=== PATIENT | female | born 1950 | race Caucasian/White ===

== ENCOUNTER 2016-12-23 16:35 | Inpatient (IN) | payer MEDICARE, OTHER ==
[~2016-12-23 16:35] MED LIST: MIDAZOLAM 2 MG/2 ML VIAL IV ONE
[2016-12-23 16:54] LABS: Basophils # (A) 0.1 k/uL (0-0.2); Basophils % (A) 1 %; CH 27.2; Eosinophils # (A) 0.2 k/uL (0-0.7); Eosinophils % (A) 2 %; HCT 40.8 % (34.0-46.0); HDW 2.74; HGB 13.9 gm/dL (11.4-16.0); Luc # (Auto) 0.14; Luc % (Auto) 2; Lymphocytes # (A) 1.7 k/uL (1.0-4.8); Lymphocytes % (A) 19 %; MCH 27.4 pg (25.0-35.0); MCHC 34.1 g/dL (31.0-37.0); MCV 80.5 fL (80.0-100.0); Mean Platelet Volume 7.2; Monocytes # (A) 0.4 k/uL (0-1.0); Monocytes % (A) 5 %; Neutrophils # (A) 6.5 k/uL (1.3-7.7); Neutrophils % (A) 73 %; RBC 5.07 m/uL (3.80-5.40); RDW 13.5 % (11.5-15.5); WBC 8.9 k/uL (3.8-10.6); WBC (Perox) 8.44
[2016-12-23 16:54] LABS: Glucose,Whole Blood 131 mg/dL (75-99)
--- NOTE | 2016-12-23 16:57 | XR ---
EXAMINATION TYPE: XR chest 1V portable DATE OF EXAM: 12/23/2016 Comparison: None Clinical History: 66-year-old female with PAIN Findings: The cardiomediastinal silhouette, aorta, and pulmonary vasculature are within normal limits. Some [place] atelectasis in the lower lungs. Otherwise, lungs and pleural spaces are clear. Impression: No acute cardiopulmonary process.
[2016-12-23 17:02] LABS: ALT 50 U/L (9-52); AST 102 U/L (14-36); Alkaline Phosphatase 81 U/L (38-126); Anion Gap 14 mmol/L; Blood Urea Nitrogen 24 mg/dL (7-17); Carbon Dioxide 19 mmol/L (22-30); Chloride 111 mmol/L (98-107); Glucose 136 mg/dL (74-99); Non-African American GFR(MDRD) >60 (>60 ml/min/1.73 sqM); Sodium 144 mmol/L (137-145); Total Bilirubin 0.5 mg/dL (0.2-1.3); Total Protein 7.2 g/dL (6.3-8.2)
[2016-12-23 17:03] LABS: Partial Thromboplastin Time 23.2 sec (22.0-30.0); Prothrombin Time 9.8 sec (9.0-12.0)
[2016-12-23] MEDS ORDERED: HEPARIN SODIUM,PORCINE 5,000 UNIT/ML 1 ML VIAL IV STA (17:03)
[2016-12-23] MEDS ORDERED: LIDOCAINE 2% INJ 20 MG/ML (20 ML MDV) ONE (17:08)
[2016-12-23] MEDS ORDERED: diphenhydrAMINE 50 MG/ML 1 ML VIAL ONE (17:10)
[2016-12-23] MEDS ORDERED: MIDAZOLAM 2 MG/2 ML VIAL ONE (17:10)
[2016-12-23] MEDS ORDERED: diphenhydrAMINE 50 MG/ML 1 ML VIAL IVP ONE (17:19)
[2016-12-23] MEDS ORDERED: SODIUM CHLORIDE 0.9% 500 ML IV ONE (17:19)
[2016-12-23] MEDS ORDERED: BIVALIRUDIN BOLUS 250 MG/50 ML IV ONE (17:23)
[2016-12-23] MEDS ORDERED: SODIUM CHLORIDE 0.9% 1,000 ML IV ONE (17:24)
[2016-12-23] MEDS ORDERED: BIVALIRUDIN 250 MG in SODIUM CHLORIDE 0.9% 50 ML IV ONE (17:25)
[2016-12-23 17:26] LABS: Creatine Kinase MB 78.6 ng/mL (0.0-2.4); Troponin I 6.47 ng/mL (0.000-0.034)
--- NOTE | 2016-12-23 17:37 | ED ---
General Adult HPI - General Chief complaint: Syncope Stated complaint: Unresponsive Time Seen by Provider: 12/23/16 16:47 Source: patient, EMS, RN notes reviewed Mode of arrival: EMS Limitations: no limitations - History of Present Illness Initial comments: 66-year-old female presents by EMS after collapsing being found unresponsive. Patient has past medical history of hypertension, hypothyroidism, and osteoarthritis. She has no known cardiac history. Upon arrival patient complains of some lightheadedness mild nausea. She denies chest pain denies abdominal pain. Patient states she was feeling under the weather yesterday, but again denied any chest pain denied shortness of breath. States she had some nausea and lightheadedness. "EMS patient was initially hypotensive and bradycardic. She had approximately downtime of 10 minutes. Patient is alert and oriented the time of arrival and able to give a complete history. Patient does not have diabetes, she denies tobacco. - Related Data Home Medications Medication Instructions Recorded Confirmed Bisoprol/Hydrochlorothiazide [Ziac 1 each PO DAILY 12/23/16 12/23/16 2.5-6.25 MG] Cholecalciferol (Vitamin D3) 2,000 unit PO DAILY 12/23/16 12/23/16 [Vitamin D3] Levothyroxine Sodium [Synthroid] 25 mcg PO DAILY 12/23/16 12/23/16 Loratadine 10 mg PO DAILY 12/23/16 12/23/16 Melatonin 10 mg PO DAILY 12/23/16 12/23/16 Simvastatin [Zocor] 20 mg PO HS 12/23/16 12/23/16 hydrOXYzine PAMOATE [Vistaril] 25 mg PO 12/23/16 12/23/16 Allergies Allergy/AdvReac Type Severity Reaction Status Date / Time clindamycin [From Cleocin] Allergy Unknown Verified 12/23/16 16:55 erythromycin base Allergy Unknown Verified 12/23/16 16:55 Penicillins Allergy Unknown Verified 12/23/16 16:55 Review of Systems ROS Statement: Those systems with pertinent positive or pertinent negative responses have been documented in the HPI. ROS Other: All systems not noted in ROS Statement are negative. Cardiovascular: Denies: chest pain, palpitations Endocrine: Reports: fatigue Gastrointestinal: Reports: nausea. Denies: vomiting Past Medical History Past Medical History: Hypertension, Thyroid Disorder History of Any Multi-Drug Resistant Organisms: None Reported Past Surgical History: Unable to Obtain Past Psychological History: No Psychological Hx Reported Smoking Status: Unknown if ever smoked Past Alcohol Use History: None Reported Past Drug Use History: None Reported General Exam Limitations: no limitations General appearance: alert, in distress Head exam: Present: atraumatic, normocephalic Eye exam: Present: normal appearance, PERRL ENT exam: Present: normal exam, mucous membranes dry Neck exam: Present: normal inspection Respiratory exam: Present: normal lung sounds bilaterally. Absent: respiratory distress, wheezes Cardiovascular Exam: Present: regular rate, normal rhythm GI/Abdominal exam: Present: soft. Absent: distended, tenderness Extremities exam: Present: normal capillary refill, other (Bilateral femoral pulses present) Neurological exam: Present: alert, oriented X3. Absent: motor sensory deficit Psychiatric exam: Present: normal affect, normal mood Skin exam: Present: diaphoretic, pallor Course Vital Signs 12/23/16 12/23/16 16:35 16:50 Temperature 97.4 F L Pulse Rate 82 84 Respiratory 18 18 Rate Blood Pressure 130/64 106/53 O2 Sat by Pulse 99 99 Oximetry EKG Findings - EKG Comments: EKG Findings:: Prehospital EKG shows ST segment elevation in leads 2,[address] segment depression in V1 and V2 V3 and V4 this is consistent with inferior STEMI. EKG obtained upon arrival: Again redemonstration of ST segment elevation in leads 2, 3, and aVF as well as reciprocal change in V1, V2, V3, V4 and V5. Inferior STEMI Medical Decision Making - Medical Decision Making 66-year-old female with syncopal episode, hypotension bradycardia and EKG evidence of acute inferior STEMI. 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 Case is discussed with cardiology she is given aspirin by EMS prior to arrival, heparin bolus is given in the emergency department. 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 Chest x-ray as well as laboratory studies are pending. Diagnosis: Inferior STEMI - Lab Data Result diagrams: 12/23/16 16:44 12/23/16 16:44 Lab Results 12/23/16 12/23/16 12/23/16 Range/Units 16:44 16:44 16:44 WBC 8.9 (3.8-10.6) k/uL RBC 5.07 (3.80-5.40) m/uL Hgb 13.9 (11.4-16.0) gm/dL Hct 40.8 (34.0-46.0) % MCV 80.5 (80.0-100.0) fL MCH 27.4 (25.0-35.0) pg MCHC 34.1 (31.0-37.0) g/dL RDW 13.5 (11.5-15.5) % Plt Count 251 (150-450) k/uL Neutrophils % 73 % Lymphocytes % 19 % Monocytes % 5 % Eosinophils % 2 % Basophils % 1 % Neutrophils # 6.5 (1.3-7.7) k/uL Lymphocytes # 1.7 (1.0-4.8) k/uL Monocytes # 0.4 (0-1.0) k/uL Eosinophils # 0.2 (0-0.7) k/uL Basophils # 0.1 (0-0.2) k/uL PT (9.0-12.0) sec INR (<1.1) APTT (22.0-30.0) sec Sodium 144 (137-145) mmol/L Potassium 4.0 (3.5-5.1) mmol/L Chloride 111 H (98-107) mmol/L Carbon Dioxide 19 L (22-30) mmol/L Anion Gap 14 mmol/L BUN 24 H (7-17) mg/dL Creatinine 0.85 (0.52-1.04) mg/dL Est GFR (MDRD) Af Amer >60 (>60 ml/min/1.73 sqM) Est GFR (MDRD) Non-Af >60 (>60 ml/min/1.73 sqM) Glucose 136 H (74-99) mg/dL POC Glucose (mg/dL) (75-99) mg/dL POC Glu Efficiency Miner Blasting ID Calcium 11.0 H (8.4-10.2) mg/dL Total Bilirubin 0.5 (0.2-1.3) mg/dL AST 102 H (14-36) U/L ALT 50 (9-52) U/L Alkaline Phosphatase 81 (38-126) U/L Total Creatine Kinase 823 H (30-135) U/L Total Protein 7.2 (6.3-8.2) g/dL Albumin 4.1 (3.5-5.0) g/dL 07/11/17 07/11/17 Range/Units 16:44 16:52 WBC (3.8-10.6) k/uL RBC (3.80-5.40) m/uL Hgb (11.4-16.0) gm/dL Hct (34.0-46.0) % MCV (80.0-100.0) fL MCH (25.0-35.0) pg MCHC (31.0-37.0) g/dL RDW (11.5-15.5) % Plt Count (150-450) k/uL Neutrophils % % Lymphocytes % % Monocytes % % Eosinophils % % Basophils % % Neutrophils # (1.3-7.7) k/uL Lymphocytes # (1.0-4.8) k/uL Monocytes # (0-1.0) k/uL Eosinophils # (0-0.7) k/uL Basophils # (0-0.2) k/uL PT 9.8 (9.0-12.0) sec INR 1.0 (<1.1) APTT 23.2 (22.0-30.0) sec Sodium (137-145) mmol/L Potassium (3.5-5.1) mmol/L Chloride (98-107) mmol/L Carbon Dioxide (22-30) mmol/L Anion Gap mmol/L BUN (7-17) mg/dL Creatinine (0.52-1.04) mg/dL Est GFR (MDRD) Af Amer (>60 ml/min/1.73 sqM) Est GFR (MDRD) Non-Af (>60 ml/min/1.73 sqM) Glucose (74-99) mg/dL POC Glucose (mg/dL) 131 H (75-99) mg/dL POC Glu Efficiency Miner Blasting ID Charisse Briggs Calcium (8.4-10.2) mg/dL Total Bilirubin (0.2-1.3) mg/dL AST (14-36) U/L ALT (9-52) U/L Alkaline Phosphatase (38-126) U/L Total Creatine Kinase (30-135) U/L Total Protein (6.3-8.2) g/dL Albumin (3.5-5.0) g/dL Disposition Clinical Impression: STEMI (ST elevation myocardial infarction) Disposition: ADMITTED IP TO THIS [facility] Decision to Admit Reason: Admit from EC Decision Date: 12/23/16 Decision Time: 16:38
[2016-12-23] MEDS ORDERED: NITROGLYCERIN 1000MCG/10ML SYRINGE INTRACORON ONE (18:05)
[2016-12-23] MEDS ORDERED: FUROSEMIDE 10 MG/ML 4 ML VIAL ONE (18:19)
[2016-12-23] MEDS ORDERED: FUROSEMIDE 10 MG/ML 4 ML VIAL IV ONE (18:22)
[2016-12-23] MEDS ORDERED: CLOPIDOGREL 75 MG TAB ONE (18:24)
[2016-12-23] MEDS ORDERED: CLOPIDOGREL 75 MG TAB PO ONE (18:26)
[2016-12-23] MEDS ORDERED: NITROGLYCERIN SL TABS 0.4 MG TAB SUBLINGUAL PRN (18:27)
[2016-12-23] MEDS ORDERED: RX INFO: IV CONTRAST WAS GIVEN 1 EACH MISC MISCELLANE PRN (18:27)
[2016-12-23] MEDS ORDERED: MAG HYDROX/AL HYDROX/SIMETH 30 ML CUP PO PRN (18:27)
[2016-12-23] MEDS ORDERED: ATROPINE SULFATE 0.1 MG/ML 10ML SYRINGE IV PRN (18:27)
[2016-12-23] MEDS ORDERED: IOHEXOL 350 MG/ML 125ML BOTTLE INJ ONE (18:32)
[2016-12-23 19:03] LABS: Glucose,Whole Blood 96 mg/dL (75-99)
[2016-12-23] MEDS: SODIUM CHLORIDE 0.9% 1,000 ML IV SCH (20:59)
[2016-12-23] MEDS: METOPROLOL TARTRATE 12.5 MG TAB PO SCH ×2 (20:59→22:44)
[2016-12-23] MEDS: ATORVASTATIN 80 MG TAB PO SCH (20:59)
[2016-12-23] MEDS: ZOLPIDEM 5 MG TAB PO PRN (23:17)
[2016-12-24 04:32] LABS: Basophils % (A) 0 %; CH 27.3; CHCM 33.4; Eosinophils # (A) 0.1 k/uL (0-0.7); Eosinophils % (A) 1 %; HDW 2.61; Luc # (Auto) 0.11; Luc % (Auto) 1; Lymphocytes # (A) 1.1 k/uL (1.0-4.8); Lymphocytes % (A) 14 %; MCH 28.1 pg (25.0-35.0); MCHC 34.2 g/dL (31.0-37.0); MCV 82.1 fL (80.0-100.0); Mean Platelet Volume 7.5; Monocytes # (A) 0.5 k/uL (0-1.0); Monocytes % (A) 6 %; Neutrophils # (A) 6.1 k/uL (1.3-7.7); Neutrophils % (A) 77 %; RBC 4.63 m/uL (3.80-5.40); RDW 13.5 % (11.5-15.5); WBC 7.9 k/uL (3.8-10.6); WBC (Perox) 7.89
[2016-12-24 04:53] LABS: Anion Gap 11 mmol/L; Blood Urea Nitrogen 24 mg/dL (7-17); Calcium 10.4 mg/dL (8.4-10.2); Carbon Dioxide 22 mmol/L (22-30); Chloride 109 mmol/L (98-107); Glucose 104 mg/dL (74-99); Magnesium 1.9 mg/dL (1.6-2.3); Non-African American GFR(MDRD) >60 (>60 ml/min/1.73 sqM); Phosphorous 3.7 mg/dL (2.5-4.5); Potassium 3.9 mmol/L (3.5-5.1); Sodium 142 mmol/L (137-145)
[2016-12-24] MEDS ORDERED: Potassium Replacement Protocol 1 EACH MISC MISCELLANE PRN (04:57)
[2016-12-24] MEDS ORDERED: Magnesium Replacement Protocol 1 EACH MISC MISCELLANE PRN (04:57)
[2016-12-24] MEDS: MAGNESIUM SULFATE-D5W PMX 1 GM in DEXTROSE/WATER 1 100ML.BAG IVPB SCH ×2 (06:01→08:10)
[2016-12-24] MEDS: LEVOTHYROXINE 25 MCG TAB PO SCH (06:01)
[2016-12-24] MEDS ORDERED: POTASSIUM CHLORIDE ER 20 MEQ TAB.ER PO SCH (06:30)
[2016-12-24] MEDS: CHOLECALCIFEROL 1,000 UNIT TAB PO SCH (08:11)
[2016-12-24] MEDS: METOPROLOL TARTRATE 12.5 MG TAB PO SCH ×2 (08:12→21:00)
[2016-12-24] MEDS: LISINOPRIL 5 MG TAB PO SCH (08:12)
[2016-12-24] MEDS: ASPIRIN 81 MG CHEW PO SCH (08:12)
--- NOTE | 2016-12-24 10:29 | ECHOF ---
Referral Reason:Acute posterior OH status post PCI of circumflex MEASUREMENTS -------- HEIGHT: 162.6 cm WEIGHT: 86.2 kg BP: 80/49 RVIDd: 2.3 cm (< 3.3) IVSd: 1.2 cm (0.6 - 1.1) LVIDd: 3.8 cm (3.9 - 5.3) LVPWd: 1.1 cm (0.6 - 1.1) IVSs: 1.5 cm LVIDs: 2.5 cm LVPWs: 1.5 cm LA Diam: 3.3 cm (2.7 - 3.8) LAESV Index (A-L): 18.10 ml/m Ao Diam: 3.2 cm (2.0 - 3.7) AV Cusp: 1.6 cm (1.5 - 2.6) MV EXCURSION: 16.638 mm (> 18.000) MV EF SLOPE: 136 mm/s (70 - 150) EPSS: 0.3 cm MV E Bib: 0.93 m/s MV DecT: 171 ms MV A Bib: 0.73 m/s MV E/A Ratio: 1.27 RAP: 5.00 mmHg RVSP: 27.49 mmHg FINDINGS -------- Sinus rhythm. This was a technically adequate study. The left ventricular size is normal. There is borderline concentric left ventricular hypertrophy. Overall left ventricular systolic function is mildly impaired with, an EF between 45 - 50 %. Basal posterior LV wall motion is hypokinetic. Basal inferior LV wall motion is hypokinetic. Mid lateral LV wall motion is hypokinetic. Mid posterior LV wall motion is hypokinetic. The right ventricle is normal in size and function. Normal LA size by volume 22+/-6 ml/m2. The right atrium is normal in size. There is mild aortic valve sclerosis. Mild mitral annular calcification present. [id number] mitral regurgitation is present. Mild tricuspid regurgitation present. Right ventricular systolic pressure is normal at < 35 mmHg. The pulmonic valve was not well visualized. There is no pulmonic regurgitation present. The aortic root size is normal. Normal inferior vena cava with normal inspiratory collapse consistent with estimated right atrial pressure of 5 mmHg. There is no pericardial effusion. CONCLUSIONS -------- 1. Sinus rhythm. 2. There is mild aortic valve sclerosis. 3. Mild mitral annular calcification present. 4. [id number] mitral regurgitation is present. 5. Mild tricuspid regurgitation present. 6. Right ventricular systolic pressure is normal at < 35 mmHg. 7. The pulmonic valve was not well visualized. 8. There is no pulmonic regurgitation present. 9. The aortic root size is normal. 10. Normal inferior vena cava with normal inspiratory collapse consistent with estimated right atrial pressure of 5 mmHg. 11. There is no pericardial effusion. 12. This was a technically adequate study. 13. There is borderline concentric left ventricular hypertrophy. 14. Overall left ventricular systolic function is mildly impaired with, an EF between 45 - 50 %. 15. Basal posterior LV wall motion is hypokinetic. 16. Basal inferior LV wall motion is hypokinetic. 17. Mid lateral LV wall motion is hypokinetic. 18. Mid posterior LV wall motion is hypokinetic. 19. Normal LA size by volume 22+/-6 ml/m2. SILK SCREEN FRAME ASSEMBLER: Shama Boudreaux RDCS
[2016-12-24] MEDS ORDERED: SODIUM CHLORIDE 0.9% 200 ML IV ONE (11:15)
[2016-12-24] MEDS: CLOPIDOGREL 75 MG TAB PO SCH (11:23)
[2016-12-24] MEDS: SODIUM CHLORIDE 0.9% 1,000 ML IV SCH ×2 (11:25→21:00)
--- NOTE | 2016-12-24 11:56 | CONS ---
DATE OF SERVICE: 12/23/2016 Mrs. Ragini Brito is a 66-year-old lady with history of hypertension who sees Dr. Otf Edwards in the outpatient setting. She quit smoking about 5 years ago. She has a strong family history of premature CAD and her cholesterol status is unknown. She was at work. She went to take the trash out at work and the next thing she remembers is she passed out. Her boss found her, called EMS, she was brought in. She had inferior ST elevation and more prominent with precordial ST depression. Clinical pictures suggested that syncope with acute MO and inferior posterior elevation MO. She was seen by me in the [facility]. She had achy discomfort in the upper back and shoulders, but she was hemodynamically stable. She denied any nausea or vomiting sensation. She has no diaphoresis. Her syncope was her major presenting features along with the achy discomfort in the upper back and chest that started almost at 8:00 a.m. this morning on and off. I took her to the [facility] promptly performed coronary angiography and intervention of a totally occluded circumflex. PAST MEDICAL HISTORY: 1. Hypertension. 2. Hypothyroidism on replacement therapy. 3. No evidence of prior MO or PCI. CORONARY RISK FACTORS: The patient has a strong family history of premature CAD , she quit smoking 5 years ago, has hypertension, hyperlipidemia. Medications at home include Vistaril, bisoprolol hydrochlorothiazide combination that is Ziac 2.5/6.25, Synthroid 25 mcg daily, simvastatin 20 mg daily. ALLERGIES: She was allergic to CLINDAMYCIN, ERYTHROMYCIN, AND PENICILLIN. On examination, blood pressure 110/70, pulse rate 78 per minute. HEENT unremarkable. Fundus was not examined by me. Neck is supple. No JVD. I do not hear a carotid bruit. There is no thyromegaly. Heart exam reveals an S1, S2 heard normally without rub, murmur or gallop. Lungs are clear. Abdomen is soft, nontender. Lower extremities reveal diminished but palpable pulses. No edema. Central nervous system was normal. EKG revealed a very inferior ST elevation. Sinus mechanism with precordial ST depression of acute inferior posterior ST elevation MO. IMPRESSION: 1. Acute inferior posterior elevation myocardial infarction. 2. Hypertensin. 3. Hypothyroidism. 4. Hypercholesterolemia. RECOMMENDATIONS: I recommend a prompt cardiac catheterization and intervention and proceeded to perform this expeditiously. risks, benefits, options and rationale were explained to the patient. MTDD
--- NOTE | 2016-12-24 14:37 | P.HPIM ---
History of Present Illness H&P Date: 12/23/16 Chief Complaint: STEMI, post PCI and stent placement, hypertension, hyperlipidemia 66-year-old mildly overweight female one of Dr. Edwards's patient with past medical history of hypertension hyperlipidemia who works for [employer] who apparently was at work on Thursday afternoon she was not feeling well she felt more heat sickness and achiness all over her body had an excessive sweating and she passout in the office by herself was down for a few minutes when Mr. Wolf found her on the mosaic floor layer up calling 911 and brought to the emergency department at [facility]. Her EKG showed significant finding of ST elevation myocardial infarction CK with troponin was elevated patient ended up going to the clinical laboratory technician with Dr. Heard and had an angiogram revealed multiple coronary artery stenosis including the circumflex the OM and RCA. Patient ended up having to angioplasty of the circumflex and OM she still have a blockage in the RCA need to be fixed before she the hospital. Patient ended up being transferred to the intensive care unit after her angioplasty and more stable at this point. Her echocardiogram showed slight decrease in ejection fraction initially looks like mild injury or wall area. Asking the patient about her symptoms apparently has not been feeling well since Thursday has been having achiness and discomfort with heat symptom palpitation and nausea feeling since Thursday morning but she kept working all day according to her Been able to climb the steps and walk and flat area with no exertional chest pain or symptom of the time. Her major symptoms started on Thursday early in the morning when she woke up at 4:00 after midnight not feeling well and still insists to go to work had a crazy the at work Been more physically active and doing things all day till this event taking place in the afternoon on Thursday. Review of Systems Constitutional: Reports anorexia, Reports chronic headaches, Reports chronic pain, Reports fatigue, Reports lethargy, Reports weakness, Reports weight gain, Denies as per HPI, Denies chills, Denies daytime sleepiness, Denies fever, Denies malaise, Denies night sweats, Denies poor appetite, Denies sweats, Denies weight loss Eyes: bilateral as per HPI Ears: bilateral: decreased hearing Ears, nose, mouth and throat: Reports nasal discharge, Reports sinus pain, Reports sinus pressure, Denies as per HPI, Denies ant. neck pain, Denies bleeding gums, Denies dental pain, Denies dysphagia, Denies epistaxis, Denies headache, Denies hoarseness, Denies mouth pain, Denies nasal congestion, Denies neck fullness/pressure, Denies neck lump, Denies nose pain, Denies odynophagia, Denies post-nasal drip, Denies swelling in mouth, Denies swelling in throat, Denies sore throat, Denies vertigo, Denies voice changes Cardiovascular: Reports chest pain, Reports decreased exercise tolerance, Reports dyspnea on exertion, Reports edema, Reports high blood pressure, Reports irregular heart beat, Reports leg edema, Reports lightheadedness, Reports palpitations, Reports paroxysmal nocturnal dyspnea, Reports rapid heart beat, Reports syncope, Denies as per HPI, Denies claudication, Denies orthopnea , Denies phlebitis, Denies shortness of breath Respiratory: Reports congestion, Reports dyspnea, Reports pain, Reports respiratory infections, Denies as per HPI, Denies cough, Denies cough with sputum, Denies excessive sputum, Denies hemoptysis, Denies home oxygen, Denies pain on inspiration, Denies pleurisy, Denies sleep apnea, Denies snoring, Denies wheezing Gastrointestinal: Reports abdominal pain, Reports bloating, Reports dyspepsia, Reports indigestion, Reports nausea, Denies as per HPI, Denies belching, Denies BRBPR, Denies change in bowel habits, Denies coffee ground emesis, Denies constipation, Denies diarrhea, Denies early satiety, Denies excessive gas, Denies heartburn, Denies hematemesis, Denies hematochezia, Denies jaundice, Denies lactose intolerance, Denies loss of appetite, Denies melena, Denies vomiting Genitourinary: Reports urgency, Reports urinary frequency, Denies as per HPI, Denies abnormal vaginal bleeding, Denies decreased libido, Denies difficulty conceiving, Denies difficulty voiding, Denies dysmenorrhea, Denies dyspareunia, Denies dysuria, Denies flank pain, Denies genital sores, Denies hematuria, Denies hot flashes, Denies incomplete emptying, Denies kidney stones, Denies menorrhagia, Denies mixed incontinence, Denies nocturia, Denies pelvic pain, Denies post void dribbling, Denies , Denies prolapse symptoms, Denies stress incontinence, Denies urge incontinence, Denies vaginal discharge, Denies vaginal dryness, Denies vaginal itching, Denies vaginal odor Musculoskeletal: Reports loss of height, Reports low back pain, Reports neck pain, Reports neck stiffness, Denies as per HPI, Denies arm numbness/tingling, Denies atrophy, Denies fractures, Denies frequent falls, Denies gait dysfunction , Denies hot joints, Denies leg numbness/tingling, Denies limitation of motion, Denies morning stiffness, Denies muscle cramps, Denies muscle weakness, Denies myalgias, Denies prior amputations, Denies redness of joints, Denies shooting arm pain, Denies shooting leg pain Integumentary: Reports pruritus, Reports rash, Denies as per HPI, Denies acne, Denies boils, Denies brittle nails, Denies change in hair/nails, Denies color changes, Denies darkening of skin, Denies depigmentation, Denies dryness, Denies foot/leg ulcers, Denies growths, Denies hirsutism, Denies lesions, Denies onychomycosis, Denies sores, Denies striae, Denies unusual bruising, Denies wounds Neurological: Reports ataxia, Reports change in mentation, Reports migraines, Reports tingling, Reports tremors, Denies as per HPI, Denies aphasia, Denies balance difficulties, Denies burning pain, Denies change in smell/taste, Denies change in speech, Denies confusion, Denies convulsions, Denies double vision, Denies gait dysfunction, Denies head injury, Denies headaches, Denies hearing difficulties, Denies lack of coordination, Denies loss of vision, Denies memory loss, Denies motor disturbance, Denies numbness, Denies paralysis, Denies paresthesias, Denies seizures, Denies sensory deficit, Denies spasticity, Denies syncope, Denies tic, Denies transient paralysis, Denies vertigo, Denies weakness, Denies visual changes Psychiatric: Reports anxiety, Reports confusion, Reports sadness/tearfulness, Reports sleep disturbances, Denies as per HPI, Denies anhedonia, Denies anxiety attacks, Denies change in appetite, Denies change in libido, Denies change in sleep habits, Denies depression, Denies difficulty concentrating, Denies disorientation, Denies hallucinations, Denies hopelessness, Denies hypersomnia, Denies insomnia, Denies irritability, Denies memory loss, Denies mood swings, Denies paranoia, Denies suicidal ideation Endocrine: Reports cold intolerance, Reports excessive sweating, Reports flushing, Reports heat intolerance, Reports polydipsia, Reports polyuria, Denies as per HPI, Denies deepening of the voice, Denies excessive thirst, Denies fatigue, Denies high blood sugars, Denies increase in ring/shoe/hat size , Denies low blood sugars, Denies nocturia, Denies palpitations, Denies polyphagia, Denies proptosis, Denies recent glucocorticoid use, Denies thyroid mass, Denies weight change Hematologic/Lymphatic: Denies as per HPI, Denies easy bleeding, Denies easy bruising, Denies lymphadenopathy, Denies lymphedema, Denies thrombophilia Allergic/Immunologic: Denies as per HPI, Denies allergic rhinitis, Denies anaphylaxis, Denies angioedema, Denies gluten intolerance, Denies persistent infections, Denies seasonal allergies, Denies urticaria, Denies wheezing Past Medical History Past Medical History: Hyperlipidemia, Hypertension, Thyroid Disorder History of Any Multi-Drug Resistant Organisms: None Reported Past Surgical History: Appendectomy, Bladder Surgery, Heart Catheterization With Stent, Hysterectomy, Tonsillectomy Additional Past Surgical History / Comment(s): parathyroid sx '14, heart cath with stent 12/23/2016, bladder suspesion, colonoscopy with polyp removal Past Anesthesia/Blood Transfusion Reactions: Postoperative Nausea & Vomiting ( PONV) Date of Last Stent Placement:: 12/23/2016 Past Psychological History: No Psychological Hx Reported Smoking Status: Former smoker Past Alcohol Use History: Rare Past Drug Use History: None Reported - Past Family History Father Family Medical History: Diabetes Mellitus, Hypertension, Myocardial Infarction ( HI) Additional Family Medical History / Comment(s): TB, type 1 brittle DM, HEart dz , triple bypass Mother Family Medical History: Dementia, Hyperlipidemia, Hypertension Additional Family Medical History / Comment(s): B knee replacment, tonsilectomy Medications and Allergies Home Medications Medication Instructions Recorded Confirmed Type Bisoprol/Hydrochlorothiazide [Ziac 1 tab PO DAILY 12/23/16 12/23/16 History 2.5-6.25 MG] Cholecalciferol (Vitamin D3) 2,000 unit PO DAILY 12/23/16 12/23/16 History [Vitamin D3] Ibuprofen [Motrin] 200 mg PO DAILY PRN 12/23/16 12/23/16 History Levothyroxine Sodium [Synthroid] 25 mcg PO DAILY 12/23/16 12/23/16 History Loratadine 10 mg PO DAILY 12/23/16 12/23/16 History Melatonin 10 mg PO HS 12/23/16 12/23/16 History Multivitamins, Thera [Multivitamin 1 tab PO DAILY 12/23/16 12/23/16 History (formulary)] Simvastatin [Zocor] 20 mg PO HS 12/23/16 12/23/16 History hydrOXYzine PAMOATE [Vistaril] 25 mg PO HS 12/23/16 12/23/16 History Allergies Allergy/AdvReac Type Severity Reaction Status Date / Time clindamycin [From Cleocin] Allergy Unknown Verified 12/23/16 19:40 erythromycin base Allergy Unknown Verified 12/23/16 19:40 Penicillins Allergy Unknown Verified 12/23/16 19:40 Physical Exam Vitals: Vital Signs Temp Pulse Resp BP Pulse Ox 12/24/16 11:00 69 14 96/64 100 12/24/16 10:00 74 17 90/59 98 12/24/16 09:00 71 24 93/44 100 12/24/16 08:00 98 F 70 15 89/64 96 12/24/16 07:00 72 16 91/46 12/24/16 06:00 62 17 83/53 98 12/24/16 05:30 71 16 97/57 95 12/24/16 05:00 64 11 L 85/55 98 12/24/16 04:00 98.2 F 71 14 87/58 97 12/24/16 03:30 71 14 12/24/16 03:00 72 9 L 96/50 98 12/24/16 02:30 72 15 96/58 95 12/24/16 02:00 78 16 91/59 98 12/24/16 01:30 68 16 96/57 12/24/16 01:00 70 25 H 84/55 98 12/24/16 00:30 71 16 97/54 12/24/16 00:00 69 17 96/62 98 12/23/16 23:00 68 9 L 92/50 98 12/23/16 22:30 74 13 98/60 12/23/16 22:00 72 11 L 114/60 97 12/23/16 21:00 79 13 107/66 98 12/23/16 20:30 77 11 L 116/74 98 12/23/16 20:00 97.7 F 86 10 L 97/70 100 12/23/16 19:45 74 9 L 104/57 12/23/16 19:30 76 48 H 111/78 12/23/16 19:15 86 12 98/65 12/23/16 19:00 26 H 12/23/16 16:50 84 18 106/53 99 12/23/16 16:35 97.4 F L 82 18 130/64 99 Intake and Output 12/23/16 12/24/16 12/24/16 22:59 06:59 14:59 Intake Total 767 775 250 Output Total 450 900 Balance 317 -125 250 Intake: IV 717 700 250 Magnesium Sulfate-D5w Pmx 100 100 1 gm In Dextrose/Water 1 100ml.bag @ 100 mls/hr IVPB Q1H KRISTINA Rx#: [id number] Sodium Chloride 0.9% 1, 225 600 150 000 ml @ 75 mls/hr IV . [id number] KRISTINA Rx#:[id number] Oral 50 75 Output: Urine 450 900 Other: Voiding Method Toilet # Voids 1 1 1 Weight 86.183 kg 87.8 kg - Constitutional General appearance: no average body habitus, cooperative, no disheveled, no mild distress, no morbidly obese, no acute distress, no obese, no severe distress, no thin - EENT Eyes: no abnormal pupil, anicteric sclerae, no disc margins sharp, no edentulous , no EOMI, no PERRLA, no fundus normal, no photophobia, no dentition normal, no poor dentition, no ptosis, scleral icterus, normal appearance ENT: no hard of hearing, no hearing grossly normal, no NA/AT, normal oropharynx , no other, no pharyngeal erythema, no thrush, no tonsillar exudates, no tonsillar swelling Ears: bilateral: normal - Neck Neck: lymphadenopathy, no normal ROM, no other, no rigidity, no stridor, no thyromegaly Carotids: bilateral: upstroke normal, upstroke delayed Thyroid: negative: normal size - Respiratory Respiratory: bilateral: CTA, diminished - Cardiovascular Rhythm: regular Heart sounds: normal: S1, S2 Abnormal Heart Sounds: systolic murmur, S3 Gallop - Gastrointestinal General gastrointestinal: no absent bowel sounds, no decreased bowel sounds, distended, no hepatomegaly, no hyperactive bowel sounds, no normal bowel sounds , no organomegaly, no rigid, no scaphoid, soft, splenomegaly, no tenderness, no umbilical hernia, no ventral hernia - Integumentary Integumentary: no calor, no cellulitis, no cyanotic, no decreased turgor, no flushed, no jaundiced, normal, no normal turgor, pale, rash, no ulcer - Neurologic Neurologic: CNII-XII intact - Musculoskeletal Musculoskeletal: gait normal, generalized weakness, strength equal bilaterally, no right sided weakness, no left sided weakness - Psychiatric Psychiatric: A&O x's 3, appropriate affect Results CBC & Chem 7: 12/24/16 04:13 12/24/16 04:13 Labs: Abnormal Lab Results - Last 24 Hours (Table) 12/23/16 12/23/16 12/23/16 Range/Units 16:44 16:44 16:52 Chloride 111 H (98-107) mmol/L Carbon Dioxide 19 L (22-30) mmol/L BUN 24 H (7-17) mg/dL Glucose 136 H (74-99) mg/dL POC Glucose (mg/dL) 131 H (75-99) mg/dL Calcium 11.0 H (8.4-10.2) mg/dL AST 102 H (14-36) U/L Total Creatine Kinase 823 H (30-135) U/L CK-MB (CK-2) 78.6 H* (0.0-2.4) ng/mL Troponin I 6.470 H* (0.000-0.034) ng/mL 12/23/16 12/24/16 12/24/16 Range/Units 22:54 04:13 04:13 Chloride 109 H (98-107) mmol/L Carbon Dioxide (22-30) mmol/L BUN 24 H (7-17) mg/dL Glucose 104 H (74-99) mg/dL POC Glucose (mg/dL) (75-99) mg/dL Calcium 10.4 H (8.4-10.2) mg/dL AST (14-36) U/L Total Creatine Kinase (30-135) U/L CK-MB (CK-2) (0.0-2.4) ng/mL Troponin I 39.300 H* 43.500 H* (0.000-0.034) ng/mL Thrombosis Risk Factor Assmnt - DVT/VTE Prophylaxis DVT/VTE Prophylaxis: Pharmacologic Prophylaxis ordered, Mechanical Prophylaxis ordered - Choose All That Apply Any of the Below Risk Factors Present?: Yes Each Factor Represents 1 point: Obesity (BMI >25) Other Risk Factors: Yes Each Risk Factor Represents 2 Points: Age 61-74 years Other congenital or acquired thrombophilia - If yes, enter type in comment: No Thrombosis Risk Factor Assessment Total Risk Factor Score: 3 Thrombosis Risk Factor Assessment Level: Moderate Risk Assessment and Plan Plan: 1 STEMI: Patient was hospitalized started on heparin and nitro seeing cardiology patient went to the clinical laboratory technician for an emergency angiogram and angioplasty. 2 post PCI and stent placement of the circumflex and OM is still have a blockage in the right coronary artery need to be 6 switch schedule to be done on Thursday by Dr. Heard. 3 cardiac syncope: Post HI most likely secondary to arrhythmia and cardiogenic shock and hypotension patient blood pressure and vitals have been watch also been watch for any further arrhythmia at this point. 4 hypertension: Continue patient on lisinopril 5 mg a day metoprolol 12.5 mg twice a day watch for any further hypotension at this point. 5 hyperlipidemia: Patient was switched to Lipitor 80 mg a day for now. 5 hypothyroidism: Continue patient on levothyroxine 25 g daily. 6 hyperglycemia: Continue to watch blood sugar continue Accu-Chek with sliding scales coverage. 7 hypercalcemia: Calcium was elevated repeat parathyroid hormone level hydrate patient repeat calcium level next 24 hours. 8 abnormal liver function test: With significantly elevated AST with normal ALT and alk phos. This is most likely from hypotension and cardiogenic shock continue to stabilize patient hemodynamic status and repeat liver function tests in 24 hours. 9 GI prophylaxis: Patient will be on Pepcid 20 mg daily. 10 DVT prophylaxis: Patient will be on anticoagulation with heparin for now continue Venodyne boots and knee-high STEPAN hose. CODE STATUS: Full code. Expectation from this admission: Patient be in the hospital for more than 2 nights.
--- NOTE | 2016-12-24 16:29 | PTCA ---
DATE OF SERVICE: 12/23/16. PROCEDURE: 1. Left heart catheterization, coronary angiography. 2. PTCA and stenting of a totally occluded circumflex coronary artery performed in a setting of an acute myocardial infarction as a primary procedure. Reperfusion accomplished within 55 minutes. CLINICAL INFORMATION: The patient presented to the hospital with an episode of chest pain, brought in after a syncopal episode and upper chest and back discomfort. Had ST elevation in inferior leads and precordial ST depression suggestive of inferior posterior HI. She was advised prompt cardiac catheterization PCI. PROCEDURE NOTE: Under local anesthesia and strict aseptic precautions, a 6 German introducer was placed in the right femoral artery. I started out with a standard left Merary's type catheter to perform [employer] and intervention such I suspected that circumflex may have been the culprit lesion. After obtaining initial injections, I proceeded to perform intervention of the circumflex which was a very complex lesion. I performed intervention of a branch in the groove and two stents were deployed. I then performed coronary angiography of the right coronary artery and then checked LV pressures but did not perform LV gram. I used a BMW wire to cross a total occlusion in the circumflex and kept this wire in the groove branch. I pre-dilated the total occlusion with a 2.5 caliber 8 mm long balloon , pre-dilated the lesion. I then directed the wire into the obtuse marginal branch of circumflex. I noted that there was a total occlusion. Beyond that was an obtuse marginal lesion that was quite tight and also there was a groove branch that came off right from the lesion. After some deliberation, I decided not to do a simultaneous kissing balloon and instead separately tackled them. I dilatated the circumflex marginal lesion as well as the groove branch lesion and deployed a 2.5 caliber 24 mm long promo stent in the obtuse marginal branch. I had wired both the main obtuse marginal branch as well as the groove branch. I took the wire out of the groove branch and advanced and positioned the same BMW wire into the groove branch and predilated the lesion with a 2.5 caliber 8 mm long balloon. I then deployed a 2.25 caliber 8 mm long promo stent in the proximal portion portion of this groove branch with the proximal strut right at the ostium of the branch as it came off from the circumflex. Excellent angiographic result was achieved. I then went back and dilated the obtuse marginal branch with a 2.5 caliber 12 mm long NC trek balloon. Excellent angiographic result was achieved without complication. I also noted that there was a significant lesion in the RCA but decided to bring her back in the next 48 to 72 hours for intervention and I would also check the LAD lesion which was moderate with a FFR. CARDIAC CATHETERIZATION FINDINGS: The left ventricular end diastolic pressure was 28 mm of mercury and there was no gradient across the aortic valve. Coronary Angiography Findings: Right coronary artery: Technically this is a dominant vessel that has a proximal stenosis of 70 to 95% and distally also there is another significant stenosis as well of about 90% and then it bifurcates into PDA and PLV both of which have minor irregularities. The RCA therefore, has a proximal long 95% stenosis and a mid/distal 95% stenosis. It bifurcates into PDA and PLV but this is not the culprit vessel. Left Main Coronary Artery: Short patent vessel free of significant disease, bifurcates into LAD and circumflex. Left Anterior Descending Coronary Artery: This is a good caliber vessel that sits along the anterior wall. Very proximally, there is a 50% lesion, eccentric in nature with some haziness. There is along diseased segment of anywhere from 40% to 50% after which the caliber improves, gives off two septal good sized diagonal branch, runs all the way to the apex supplying a fair amount of myocardium. However, this is a small caliber fair distribution vessel. Left Posterior Circumflex Coronary Artery: This is a non-dominant vessel totally occluded [employer] SUPERVISOR stump without any antegrade flow. FINAL IMPRESSION: This patient has a total occlusion of circumflex which is a culprit vessel. There is a 95% long proximal as well as mid/distal RCA lesion which is a dominant vessel. There is a 50% proximal LAD lesion. Filling pressures are elevated. I performed PTCA and stenting of the circumflex, marginal as well as the groove branch. Two drug eluding stents were used, the obtuse marginal stent was a 2.5 caliber, 25 mm long stent and the groove branch stent was a 2.25 caliber 8 mm long stent. Excellent angiographic result was achieved. The sheath was taken out and Angioseal device used to secure hemostasis and the patient was sent to the room in stable condition. The patient was provided moderate conscious sedation for a total duration of 1 hour and 15 minutes. The patient's oxygen saturation was closely monitored. [facility]
--- NOTE | 2016-12-24 16:44 | PN ---
Mrs. Brito was seen by me yesterday when she presented with a STEMI. She is doing better clinically. Denies any chest pain. The right groin is clean and dry with a good pulse. However, she is slightly hypotensive. I gave her some fluid challenge. We will hold the beta blockers and lisinopril. Continue aspirin and Plavix. Keep her in the ICU one more day. This Thursday I will perform stenting of the RCA. I performed stenting of a totally occluded circumflex which is a complex bifurcation lesion. We will do RCA stenting probably from right radial approach or left femoral approach. I discussed this with the patient. For today, we will give some IV fluids, increase activity and see how she does. Blood pressure 96/60. Pulse rate is 70 per minute. S1, S2 heard normally. Lungs are clear. Abdomen and lower extremity examination unchanged. Right groin is clean and dry. The pulse is good. Echo revealed ejection fraction of 45% with anteroposterior hypokinesia. MTDD
[2016-12-24] MEDS: ATORVASTATIN 80 MG TAB PO SCH (21:00)
[2016-12-25] MEDS: ZOLPIDEM 5 MG TAB PO PRN ×2 (01:51→22:57)
[2016-12-25 05:02] LABS: Basophils % (A) 0 %; CH 27.3; CHCM 33.2; Eosinophils # (A) 0.2 k/uL (0-0.7); Eosinophils % (A) 3 %; HCT 34.5 % (34.0-46.0); HDW 2.59; HGB 12.2 gm/dL (11.4-16.0); Luc # (Auto) 0.12; Luc % (Auto) 2; Lymphocytes # (A) 1.4 k/uL (1.0-4.8); Lymphocytes % (A) 22 %; MCH 29.1 pg (25.0-35.0); MCHC 35.2 g/dL (31.0-37.0); MCV 82.6 fL (80.0-100.0); Mean Platelet Volume 7.4; Monocytes # (A) 0.4 k/uL (0-1.0); Monocytes % (A) 6 %; Neutrophils # (A) 4.2 k/uL (1.3-7.7); Neutrophils % (A) 68 %; RBC 4.18 m/uL (3.80-5.40); RDW 13.5 % (11.5-15.5); WBC 6.2 k/uL (3.8-10.6); WBC (Perox) 6.46
[2016-12-25 05:13] LABS: ALT 52 U/L (9-52); AST 99 U/L (14-36); Alkaline Phosphatase 66 U/L (38-126); Anion Gap 7 mmol/L; Blood Urea Nitrogen 16 mg/dL (7-17); Calcium 9.5 mg/dL (8.4-10.2); Carbon Dioxide 21 mmol/L (22-30); Chloride 113 mmol/L (98-107); Glucose 89 mg/dL (74-99); Magnesium 2.1 mg/dL (1.6-2.3); Non-African American GFR(MDRD) >60 (>60 ml/min/1.73 sqM); Phosphorous 3.1 mg/dL (2.5-4.5); Potassium 4.3 mmol/L (3.5-5.1); Sodium 141 mmol/L (137-145); Total Bilirubin 0.4 mg/dL (0.2-1.3); Total Protein 5.7 g/dL (6.3-8.2)
[2016-12-25] MEDS: SODIUM CHLORIDE 0.9% 1,000 ML IV SCH (05:34)
[2016-12-25] MEDS: METOPROLOL TARTRATE 12.5 MG TAB PO SCH ×3 (05:35→21:34)
[2016-12-25] MEDS: LEVOTHYROXINE 25 MCG TAB PO SCH (05:52)
[2016-12-25] MEDS: ASPIRIN 81 MG CHEW PO SCH (08:02)
[2016-12-25] MEDS: CLOPIDOGREL 75 MG TAB PO SCH (08:02)
[2016-12-25] MEDS: CHOLECALCIFEROL 1,000 UNIT TAB PO SCH (08:02)
[2016-12-25] MEDS ORDERED: ALPRAZolam 0.25 MG TAB PO PRN (10:12)
[2016-12-25] MEDS ORDERED: NITROGLYCERIN SL TABS 0.4 MG TAB SUBLINGUAL PRN (10:12)
[2016-12-25] MEDS ORDERED: SODIUM CHLORIDE 0.9% 1,000 ML in EMPTY BAG 1 BAG IV ONE (10:12)
[2016-12-25] MEDS ORDERED: ALPRAZolam 0.5 MG TAB PO PRN (10:12)
[2016-12-25] MEDS ORDERED: ASPIRIN 325 MG TAB PO STA (10:12)
[2016-12-25] MEDS ORDERED: ATORVASTATIN 80 MG TAB PO STA (10:12)
--- NOTE | 2016-12-25 11:17 | P.PN ---
Subjective 66-year-old mildly overweight female one of Dr. Edwards's patients with past medical history of hypertension hyperlipidemia who works for [employer] who apparently was at work on Thursday afternoon, she was not feeling well she felt more heat sickness and achiness all over her body had an excessive sweating and she passed out in the office by herself was down for a few minutes when Mr. Wolf found her on the floor and ended up calling 911 and brought to the emergency department at [facility]. Her EKG showed significant finding of ST elevation myocardial infarction CK with troponin was elevated patient ended up going to the public works [facility] with Dr. Heard and had an angiogram revealed multiple coronary artery stenosis including the circumflex the OM and RCA. Patient ended up having to angioplasty of the circumflex and OM , she still has a blockage in the RCA that needs to be fixed before she leaves the hospital. Patient ended up being transferred to the intensive care unit after her angioplasty and is more stable at this point. Her echocardiogram showed slight decrease in ejection fraction initially looks like mild injury or wall area. Asking the patient about her symptoms apparently has not been feeling well since Thursday has been having achiness and discomfort with heat symptom palpitation and nausea feeling since Thursday morning but she kept working all day according to her she has been able to climb the steps and walk and flat area with no exertional chest pain or symptom of the time. Her major symptoms started on Thursday early in the morning when she woke up at 4:00 after midnight not feeling well and still insists to go to work, it had been very crazy at work and she has been more physically active and doing things all day till this event taking place in the afternoon on Thursday. 12/25: Today the patient was seen and evaluated. She underwent PTCA and stenting of the circumflex and OM yesterday. Today she was noted to be sitting up in the chair, she reports she feels well. She denies any chest pain or shortness of breath The plan is to perform stenting of the RCA by Dr. Heard, possibly this Thursday. Her vital signs remain stable blood pressure 104/60 with heart rate of 78. Her echocardiogram revealed in ejection fraction of 45-50% with anteroposterior hypokinesia. Her troponin remains elevated. She was started on Plavix, lisinopril, Lopressor and aspirin. Will continue to monitor patient closely and plan for stenting on Thursday. Objective - Vital Signs Vital signs: Vital Signs Temp 97.7 F 12/25/16 10:50 Pulse 78 12/25/16 10:50 Resp 18 12/25/16 10:50 BP 104/60 12/25/16 10:50 Pulse Ox 98 12/25/16 10:50 Intake & Output 12/24/16 12/25/16 12/25/16 18:59 06:59 18:59 Intake Total 1700 1785 600 Balance 1700 1785 600 Weight 90.5 kg Intake: IV 1700 825 Magnesium Sulfate-D5w Pmx 100 1 gm In Dextrose/Water 1 100ml.bag @ 100 mls/hr IVPB Q1H [facility] Rx#: [id number] Sodium Chloride 0.9% 1, 1200 825 000 ml @ 75 mls/hr IV . [id number] [facility] Rx#:[id number] Sodium Chloride 0.9% 200 400 ml @ 200 mls/hr IV .Q1H [facility] Rx#:[id number] Oral 960 600 Other: Voiding Method Toilet Toilet # Voids 1 0 1 # Bowel Movements 0 - Exam - Constitutional General appearance: no average body habitus, cooperative, no disheveled, no mild distress, no morbidly obese, no acute distress, no obese, no severe distress, no thin - EENT Eyes: no abnormal pupil, anicteric sclerae, no disc margins sharp, no edentulous , no EOMI, no PERRLA, no fundus normal, no photophobia, no dentition normal, no poor dentition, no ptosis, scleral icterus, normal appearance ENT: no hard of hearing, no hearing grossly normal, no NA/AT, normal oropharynx , no other, no pharyngeal erythema, no thrush, no tonsillar exudates, no tonsillar swelling Ears: bilateral: normal - Neck Neck: lymphadenopathy, no normal ROM, no other, no rigidity, no stridor, no thyromegaly Carotids: bilateral: upstroke normal, upstroke delayed Thyroid: negative: normal size - Respiratory Respiratory: bilateral: CTA, diminished - Cardiovascular Rhythm: regular Heart sounds: normal: S1, S2 Abnormal Heart Sounds: systolic murmur, S3 Gallop - Gastrointestinal General gastrointestinal: no absent bowel sounds, no decreased bowel sounds, distended, no hepatomegaly, no hyperactive bowel sounds, no normal bowel sounds , no organomegaly, no rigid, no scaphoid, soft, splenomegaly, no tenderness, no umbilical hernia, no ventral hernia - Integumentary Integumentary: no calor, no cellulitis, no cyanotic, no decreased turgor, no flushed, no jaundiced, normal, no normal turgor, pale, rash, no ulcer - Neurologic Neurologic: CNII-XII intact - Musculoskeletal Musculoskeletal: gait normal, generalized weakness, strength equal bilaterally, no right sided weakness, no left sided weakness - Psychiatric Psychiatric: A&O x's 3, appropriate affect - Labs CBC & Chem 7: 12/25/16 04:15 12/25/16 04:15 Labs: Abnormal Lab Results - Last 24 Hours (Table) 12/25/16 Range/Units 04:15 Chloride 113 H (98-107) mmol/L Carbon Dioxide 21 L (22-30) mmol/L AST 99 H (14-36) U/L Total Protein 5.7 L (6.3-8.2) g/dL Albumin 3.1 L (3.5-5.0) g/dL Assessment and Plan Plan: 1 STEMI: Patient was hospitalized started on heparin and nitro seeing cardiology patient went to the public works [facility] for an emergency angiogram and angioplasty. 2 Post PCI and stent placement of the circumflex and OM, still has a blockage in the right coronary artery she is scheduled for angioplasty to be done this Thursday by Dr. Heard. 3 Cardiac syncope: Post [place] most likely secondary to arrhythmia and cardiogenic shock and hypotension patient blood pressure and vitals have been stable, will monitor further arrhythmia at this point. 4 hypertension: Continue patient on lisinopril 5 mg a day metoprolol 12.5 mg twice a day watch for any further hypotension at this point. 5 hyperlipidemia: Patient was switched to Lipitor 80 mg a day for now. 5 hypothyroidism: Continue patient on levothyroxine 25 g daily. 6 hyperglycemia: Continue to watch blood sugar continue Accu-Chek with sliding scales coverage. 7 hypercalcemia: Calcium was elevated repeat parathyroid hormone level, hydrate and repeat calcium level next 24 hours. 8 abnormal liver function test: With significantly elevated AST with normal ALT and alk phos. This is most likely from hypotension and cardiogenic shock continue to stabilize patient hemodynamic status and repeat liver function tests in 24 hours. 9 GI prophylaxis: Patient will be on Pepcid 20 mg daily. 10 DVT prophylaxis: Patient will be on anticoagulation with heparin for now continue Venodyne boots and knee-high STEPAN hose. The above impression and plan of care have been discussed and directed by signing physician. Mamie Bruner nurse practitioner acting as scribe for signing physician.
--- NOTE | 2016-12-25 14:32 | PN ---
Mrs. Brito had acute TN, underwent circumflex stenting. This morning she is doing well, asymptomatic. Groin is clean and dry. Blood pressure 110/70. Pulse rate is 70 per minute. S1, S2 heard normally. Lungs are clear. Abdomen and lower extremity unchanged. She has a significant stenosis involving the proximal RCA. I am recommending percutaneous intervention. We will perform this tomorrow. Rationale, risks and benefits, options explained to the patient who understands all details and wishes to proceed with the procedure. DIALLO
[2016-12-25] MEDS: LISINOPRIL 5 MG TAB PO SCH (14:52)
[2016-12-25] MEDS: MELATONIN 5 MG TABLET PO SCH (21:28)
[2016-12-25] MEDS: ATORVASTATIN 80 MG TAB PO SCH (21:34)
[2016-12-26 06:45] LABS: Basophils % (A) 0 %; CH 27.3; Eosinophils # (A) 0.3 k/uL (0-0.7); Eosinophils % (A) 3 %; HCT 40.1 % (34.0-46.0); HDW 2.57; HGB 13.9 gm/dL (11.4-16.0); Luc # (Auto) 0.12; Luc % (Auto) 2; Lymphocytes # (A) 1.5 k/uL (1.0-4.8); Lymphocytes % (A) 20 %; MCH 28.8 pg (25.0-35.0); MCHC 34.7 g/dL (31.0-37.0); MCV 83.2 fL (80.0-100.0); Mean Platelet Volume 7.6; Monocytes # (A) 0.4 k/uL (0-1.0); Monocytes % (A) 5 %; Neutrophils # (A) 5.4 k/uL (1.3-7.7); Neutrophils % (A) 70 %; RBC 4.82 m/uL (3.80-5.40); RDW 13.3 % (11.5-15.5); WBC 7.7 k/uL (3.8-10.6); WBC (Perox) 7.38
[2016-12-26] MEDS: LISINOPRIL 2.5 MG TAB PO SCH (06:47)
[2016-12-26] MEDS: LEVOTHYROXINE 25 MCG TAB PO SCH (06:47)
[2016-12-26] MEDS: ASPIRIN 81 MG CHEW PO SCH (06:47)
[2016-12-26] MEDS: METOPROLOL TARTRATE 12.5 MG TAB PO SCH ×2 (06:47→21:31)
[2016-12-26] MEDS: CHOLECALCIFEROL 1,000 UNIT TAB PO SCH (06:47)
[2016-12-26] MEDS: CLOPIDOGREL 75 MG TAB PO SCH (06:47)
[2016-12-26 06:49] LABS: Glucose,Whole Blood 98 mg/dL (75-99)
[2016-12-26 07:08] LABS: Anion Gap 9 mmol/L; Blood Urea Nitrogen 14 mg/dL (7-17); Carbon Dioxide 25 mmol/L (22-30); Chloride 110 mmol/L (98-107); Glucose 103 mg/dL (74-99); Potassium 4.2 mmol/L (3.5-5.1); Sodium 144 mmol/L (137-145)
[2016-12-26 07:09] LABS: ALT 43 U/L (9-52); AST 59 U/L (14-36); Alkaline Phosphatase 79 U/L (38-126); Calcium 10.3 mg/dL (8.4-10.2); Non-African American GFR(MDRD) >60 (>60 ml/min/1.73 sqM); Phosphorous 3.7 mg/dL (2.5-4.5); Total Bilirubin 0.5 mg/dL (0.2-1.3); Total Protein 6.8 g/dL (6.3-8.2)
[2016-12-26] MEDS ORDERED: SODIUM CHLORIDE 0.9% 1,000 ML in EMPTY BAG 1 BAG IV ONE (07:57)
--- NOTE | 2016-12-26 09:57 | P.PN ---
Subjective 66-year-old mildly overweight female one of Dr. Edwards's patients with past medical history of hypertension hyperlipidemia who works for [employer] who apparently was at work on Thursday afternoon, she was not feeling well she felt more heat sickness and achiness all over her body had an excessive sweating and she passed out in the office by herself was down for a few minutes when Mr. Wolf found her on the floor and ended up calling 911 and brought to the emergency department at [facility]. Her EKG showed significant finding of ST elevation myocardial infarction CK with troponin was elevated patient ended up going to the [facility] [place] with Dr. Heard and had an angiogram revealed multiple coronary artery stenosis including the circumflex the OM and RCA. Patient ended up having to angioplasty of the circumflex and OM , she still has a blockage in the RCA that needs to be fixed before she leaves the hospital. Patient ended up being transferred to the intensive care unit after her angioplasty and is more stable at this point. Her echocardiogram showed slight decrease in ejection fraction initially looks like mild injury or wall area. Asking the patient about her symptoms apparently has not been feeling well since Thursday has been having achiness and discomfort with heat symptom palpitation and nausea feeling since Thursday morning but she kept working all day according to her she has been able to climb the steps and walk and flat area with no exertional chest pain or symptom of the time. Her major symptoms started on Thursday early in the morning when she woke up at 4:00 after midnight not feeling well and still insists to go to work, it had been very crazy at work and she has been more physically active and doing things all day till this event taking place in the afternoon on Thursday. 12/25: Today the patient was seen and evaluated. She underwent PTCA and stenting of the circumflex and OM yesterday. Today she was noted to be sitting up in the chair, she reports she feels well. She denies any chest pain or shortness of breath The plan is to perform stenting of the RCA by Dr. Heard, possibly this Thursday. Her vital signs remain stable blood pressure 104/60 with heart rate of 78. Her echocardiogram revealed in ejection fraction of 45-50% with anteroposterior hypokinesia. Her troponin remains elevated. She was started on Plavix, lisinopril, Lopressor and aspirin. Will continue to monitor patient closely and plan for stenting on Thursday. 12/26: The patient did well overnight. She denies any shortness of breath or chest pain. The patient was noted to still have significant stenosis involving the proximal RCA. She is scheduled for percutaneous intervention today with Dr. Heard at 10:30 AM. Her vials signs remain stable 136/56 heart rate of 65. Groin is clean and dry. BUN remaine within normal limits BUN 14, creatinine 0.72. Patient is on anticoagulation with Plavix and aspirin, Lipitor, lisinopril and metoprolol also initiated. Will monitor for any postoperative complications. Objective - Vital Signs Vital signs: Vital Signs Temp 97.8 F 12/26/16 05:00 Pulse 81 12/26/16 05:00 Resp 18 12/26/16 05:00 BP 138/67 12/26/16 05:00 Pulse Ox 97 12/26/16 05:00 Intake & Output 12/25/16 12/26/16 12/26/16 18:59 06:59 18:59 Intake Total 836 Output Total 450 Balance 386 Weight 90.5 kg 88.3 kg Intake: Oral 836 Output: Urine 450 Other: Voiding Method Toilet Toilet # Voids 3 1 # Bowel Movements 3 - Exam - Constitutional General appearance: no average body habitus, cooperative, no disheveled, no mild distress, no morbidly obese, no acute distress, no obese, no severe distress, no thin - EENT Eyes: no abnormal pupil, anicteric sclerae, no disc margins sharp, no edentulous , no EOMI, no PERRLA, no fundus normal, no photophobia, no dentition normal, no poor dentition, no ptosis, scleral icterus, normal appearance ENT: no hard of hearing, no hearing grossly normal, no NA/AT, normal oropharynx , no other, no pharyngeal erythema, no thrush, no tonsillar exudates, no tonsillar swelling Ears: bilateral: normal - Neck Neck: lymphadenopathy, no normal ROM, no other, no rigidity, no stridor, no thyromegaly Carotids: bilateral: upstroke normal, upstroke delayed Thyroid: negative: normal size - Respiratory Respiratory: bilateral: CTA, diminished - Cardiovascular Rhythm: regular Heart sounds: normal: S1, S2 Abnormal Heart Sounds: systolic murmur, S3 Gallop - Gastrointestinal General gastrointestinal: no absent bowel sounds, no decreased bowel sounds, distended, no hepatomegaly, no hyperactive bowel sounds, no normal bowel sounds , no organomegaly, no rigid, no scaphoid, soft, splenomegaly, no tenderness, no umbilical hernia, no ventral hernia - Integumentary Integumentary: no calor, no cellulitis, no cyanotic, no decreased turgor, no flushed, no jaundiced, normal, no normal turgor, pale, rash, no ulcer - Neurologic Neurologic: CNII-XII intact - Musculoskeletal Musculoskeletal: gait normal, generalized weakness, strength equal bilaterally, no right sided weakness, no left sided weakness - Psychiatric Psychiatric: A&O x's 3, appropriate affect - Labs CBC & Chem 7: 12/26/16 06:21 12/26/16 06:21 Labs: Abnormal Lab Results - Last 24 Hours (Table) 12/26/16 Range/Units 06:21 Chloride 110 H (98-107) mmol/L Glucose 103 H (74-99) mg/dL Calcium 10.3 H (8.4-10.2) mg/dL AST 59 H (14-36) U/L Assessment and Plan Plan: 1 STEMI: Patient was hospitalized started on heparin and nitro, cardiology on consult, patient status post angioplasty and scheduled for right coronary artery angioplasty today, patient on anticoagulation with Plavix and aspirin, lisinopril, metoprolol, Lipitor on board. 2 Post PCI and stent placement of the circumflex and OM, still has a blockage in the right coronary artery she is scheduled for angioplasty to be done today by Dr. Heard. 3 Cardiac syncope: Post [place] most likely secondary to arrhythmia and cardiogenic shock and hypotension patient blood pressure and vitals have been stable, will monitor further arrhythmia at this point. 4 hypertension: Continue patient on lisinopril 2.5 mg a day metoprolol 12.5 mg twice a day watch for any further hypotension at this point. 5 hyperlipidemia: Patient was switched to Lipitor 80 mg a day for now. 5 hypothyroidism: Continue patient on levothyroxine 25 g daily. 6 hyperglycemia: Continue to watch blood sugar continue Accu-Chek with sliding scales coverage. 7 hypercalcemia: Calcium was elevated and repeated, remains elevated at 10.3. Will continue to monitor and hydrate. 8 abnormal liver function test: With significantly elevated AST with normal ALT and alk phos. This is most likely from hypotension and cardiogenic shock continue to stabilize patient hemodynamic status, repeat liver function tests improving AST 59, ALT 43, with ALK Phos 79 continue to monitor. 9 GI prophylaxis: Patient will be on Pepcid 20 mg daily. 10 DVT prophylaxis: Patient will be on anticoagulation with aspirin and Plavix for now continue Venodyne boots and knee-high STEPAN hose. The above impression and plan of care have been discussed and directed by signing physician. Mamie Bruner nurse practitioner acting as scribe for signing physician.
[2016-12-26] MEDS ORDERED: LIDOCAINE 2% INJ 20 MG/ML (20 ML MDV) ONE (10:33)
[2016-12-26] MEDS ORDERED: SODIUM CHLORIDE 0.9% 1,000 ML IV ONE (10:50)
[2016-12-26] MEDS ORDERED: diphenhydrAMINE 50 MG/ML 1 ML VIAL ONE (10:55)
[2016-12-26] MEDS ORDERED: MIDAZOLAM 2 MG/2 ML VIAL ONE (10:55)
[2016-12-26] MEDS: MIDAZOLAM 2 MG/2 ML VIAL IV ONE ×3 (10:56→11:09)
[2016-12-26] MEDS ORDERED: diphenhydrAMINE 50 MG/ML 1 ML VIAL IVP ONE (10:56)
[2016-12-26] MEDS ORDERED: LIDOCAINE 2% INJ 20 MG/ML SQ ONE (11:05)
[2016-12-26] MEDS ORDERED: BIVALIRUDIN BOLUS 250 MG/50 ML IV ONE (11:09)
[2016-12-26] MEDS ORDERED: BIVALIRUDIN 250 MG in SODIUM CHLORIDE 0.9% 50 ML IV ONE ×4 (11:10)
[2016-12-26] MEDS: NITROGLYCERIN 1000MCG/10ML SYRINGE INTRACORON ONE ×2 (11:17→11:34)
[2016-12-26] MEDS ORDERED: HYDROmorphone 2 MG/ML 1 ML SYRINGE ONE (11:43)
[2016-12-26] MEDS ORDERED: HYDROmorphone 2 MG/ML 1 ML SYRINGE IVP ONE (11:45)
[2016-12-26] MEDS ORDERED: IOHEXOL 350 MG/ML 100 ML BOTTLE INJ ONE (11:46)
[2016-12-26] MEDS ORDERED: RX INFO: IV CONTRAST WAS GIVEN 1 EACH MISC MISCELLANE PRN (12:03)
[2016-12-26] MEDS ORDERED: NITROGLYCERIN SL TABS 0.4 MG TAB SUBLINGUAL PRN (12:03)
[2016-12-26] MEDS ORDERED: CLOPIDOGREL 75 MG TAB ONE ×2 (12:12)
[2016-12-26] MEDS ORDERED: CLOPIDOGREL 75 MG TAB PO ONE (12:14)
[2016-12-26] MEDS: SODIUM CHLORIDE 0.9% 1,000 ML IV SCH (12:51)
[2016-12-26] MEDS ORDERED: HYDROcodone/APAP 5-325MG 1 EACH TAB PO PRN (15:25)
--- NOTE | 2016-12-26 16:31 | PN ---
Mrs. Brito underwent stenting of circumflex when she presented with acute AK on 12/23/16. Today, I performed stenting of RCA ( ) doing well clinically. Left femoral approach was used. She has a FemoStop in place. Vitals are stable. S1, S2 heard normally. Lungs are clear. Abdomen and lower extremity exam is unchanged. Plan is to continue current medications. Increase activity and hopefully discharge home as of tomorrow or the day after. HID
--- NOTE | 2016-12-26 19:40 | PTCA ---
DATE OF SERVICE: 12/26/16. PROCEDURE: 1. Coronary angiography of left coronary system to check patency of circumflex that was stented three days ago. 2. PTCA and stenting of a highly diseased dominant RCA in the proximal and distal portion with drug eluding stents. PERFORMED BY: Dr. Samira Heard. CLINICAL INFORMATION: Mrs. Ragini Brito is a 66 year old who presented with acute inferior posterior WA, had total occlusion of circumflex that was stented on 12/23/16. She had a significant disease in the proximal and distal RCA of 90 % or more and also moderate to severe disease in the proximal LAD. She was advised to have PCI of RCA performed prior to discharge and brought in for the procedure electively. PROCEDURE NOTE: Under local anesthesia and strict aseptic precautions, a 6 Divehi introducer was placed in the left femoral artery. I performed selective coronary angiography of the left system to ensure patency of the circumflex which was stented on 12/23/16 and this was widely patent. This was a bifurcation lesion and both the main circumflex as well as the groove branch and obtuse marginal were all patent with good flow. A standard right Merary guide catheter was used to cannulate the right coronary artery. A BMW wire was used to cross the lesion. Predilatation was performed using a 2.5 caliber 15 mm long Trek balloon. I then deployed in the distal RCA, an 18 mm long 2.5 caliber Xience stent at 11 atmospheres and proximal RCA was addressed with a 24 mm long 2.5 caliber Promus stent. The patient had chest pain and inferior ST elevations. The patient was already on Plavix. I gave an additional 150 mg of Plavix today. She also received Angiomax and bolus as per infusion. Excellent angiographic result was achieved without complication. The sheath was taken out and I tried to deploy a Perclose device but there continued to be some oozing. FemoStop was then applied. The patient tolerated the procedure well without complications. The results were discussed with the patient and family/friend and she was sent to the room in stable condition. Moderate conscious sedation was provided with a combination of Versed and Benadryl and Dilaudid for a total duration of 45 minutes. [facility]ORE MEDICAL CENTERIvelisse
--- NOTE | 2016-12-26 19:43 | MISC ---
Dear Dr. Pinedo: Thank you for the opportunity to participate in the care of Mrs. Brito. This lady had stenting of the RCA performed three days. I performed stenting of the circumflex marginal with excellent result. I expect she should be discharged in the next 24 to 48 hours. Thank you for your referral and please call for questions. With kind personal regards, Sincerely, DIALLO
[2016-12-26] MEDS: MELATONIN 5 MG TABLET PO SCH (21:30)
[2016-12-26] MEDS: ATORVASTATIN 80 MG TAB PO SCH (21:32)
[2016-12-26] MEDS: ZOLPIDEM 5 MG TAB PO PRN (23:12)
[2016-12-27] MEDS: SODIUM CHLORIDE 0.9% 1,000 ML IV SCH (04:45)
[2016-12-27] MEDS: LEVOTHYROXINE 25 MCG TAB PO SCH (06:17)
[2016-12-27 06:56] LABS: Basophils % (A) 1 %; CH 27.1; CHCM 31.3; Eosinophils # (A) 0.3 k/uL (0-0.7); Eosinophils % (A) 5 %; HCT 37.2 % (34.0-46.0); HDW 2.49; HGB 11.9 gm/dL (11.4-16.0); Luc # (Auto) 0.08; Luc % (Auto) 1; Lymphocytes # (A) 1.2 k/uL (1.0-4.8); Lymphocytes % (A) 19 %; MCH 27.7 pg (25.0-35.0); MCHC 31.9 g/dL (31.0-37.0); Monocytes # (A) 0.4 k/uL (0-1.0); Monocytes % (A) 6 %; Neutrophils # (A) 4.3 k/uL (1.3-7.7); Neutrophils % (A) 69 %; RBC 4.28 m/uL (3.80-5.40); RDW 13.4 % (11.5-15.5); WBC 6.3 k/uL (3.8-10.6); WBC (Perox) 6.07
[2016-12-27 07:31] LABS: Anion Gap 6 mmol/L; Calcium 9.7 mg/dL (8.4-10.2); Carbon Dioxide 22 mmol/L (22-30); Chloride 113 mmol/L (98-107); Glucose 89 mg/dL (74-99); Non-African American GFR(MDRD) >60 (>60 ml/min/1.73 sqM); Sodium 141 mmol/L (137-145); Total Bilirubin 0.6 mg/dL (0.2-1.3)
[2016-12-27 07:44] LABS: Blood Urea Nitrogen 14 mg/dL (7-17); Potassium 4.7 mmol/L (3.5-5.1)
[2016-12-27 07:45] LABS: ALT 36 U/L (9-52); AST 42 U/L (14-36); Alkaline Phosphatase 62 U/L (38-126); Magnesium 1.9 mg/dL (1.6-2.3); Phosphorous 3.6 mg/dL (2.5-4.5)
[2016-12-27] MEDS: CHOLECALCIFEROL 1,000 UNIT TAB PO SCH (09:12)
[2016-12-27] MEDS: METOPROLOL TARTRATE 12.5 MG TAB PO SCH (09:12)
[2016-12-27] MEDS: LISINOPRIL 2.5 MG TAB PO SCH (09:12)
[2016-12-27] MEDS: CLOPIDOGREL 75 MG TAB PO SCH (09:12)
[2016-12-27] MEDS: ASPIRIN 81 MG CHEW PO SCH (09:12)
--- NOTE | 2016-12-27 13:35 | P.DS ---
Providers Date of admission: 12/23/16 16:57 Attending physician: Alfie Pinedo Consults: 12/23/16 18:27 Consult Physician Routine Consulting Provider: Cardiology Kami Consult Reason/Comments: Post Interventional patient Do you want consulting provider notified?: Already Contacted 12/26/16 12:03 Consult Physician Routine Consulting Provider: Cardiology Kami Consult Reason/Comments: Post Interventional patient Do you want consulting provider notified?: Already Contacted Primary care physician: Otf Edwards [facility] Course: 66-year-old mildly overweight female one of Dr. Edwards's patients with past medical history of hypertension hyperlipidemia who works for [id number] who apparently was at work on Thursday afternoon, she was not feeling well she felt more heat sickness and achiness all over her body had an excessive sweating and she passed out in the office by herself was down for a few minutes when Mr. Wolf found her on the floor and ended up calling 911 and brought to the emergency department at [facility]. Her EKG showed significant finding of ST elevation myocardial infarction CK with troponin was elevated patient ended up going to the bolt labeler with Dr. Heard and had an angiogram revealed multiple coronary artery stenosis including the circumflex the OM and RCA. Patient ended up having to angioplasty of the circumflex and OM , she still has a blockage in the RCA that needs to be fixed before she leaves the hospital. Patient ended up being transferred to the intensive care unit after her angioplasty and is more stable at this point. Her echocardiogram showed slight decrease in ejection fraction initially looks like mild injury or wall area. Asking the patient about her symptoms apparently has not been feeling well since Thursday has been having achiness and discomfort with heat symptom palpitation and nausea feeling since Thursday morning but she kept working all day according to her she has been able to climb the steps and walk and flat area with no exertional chest pain or symptom of the time. Her major symptoms started on Thursday early in the morning when she woke up at 4:00 after midnight not feeling well and still insists to go to work, it had been very crazy at work and she has been more physically active and doing things all day till this event taking place in the afternoon on Thursday. 12/25: Today the patient was seen and evaluated. She underwent PTCA and stenting of the circumflex and OM yesterday. Today she was noted to be sitting up in the chair, she reports she feels well. She denies any chest pain or shortness of breath The plan is to perform stenting of the RCA by Dr. Heard, possibly this Thursday. Her vital signs remain stable blood pressure 104/60 with heart rate of 78. Her echocardiogram revealed in ejection fraction of 45-50% with anteroposterior hypokinesia. Her troponin remains elevated. She was started on Plavix, lisinopril, Lopressor and aspirin. Will continue to monitor patient closely and plan for stenting on Thursday. 12/26: The patient did well overnight. She denies any shortness of breath or chest pain. The patient was noted to still have significant stenosis involving the proximal RCA. She is scheduled for percutaneous intervention today with Dr. Heard at 10:30 AM. Her vials signs remain stable 136/56 heart rate of 65. Groin is clean and dry. BUN remaine within normal limits. PCI of the RCA was done successfully with Dr. Heard patient is did very well with no complication. No chest pain or shortness of breath has procedure puncture side of the heart cath remain good. Patient is stable to be discharged home on 12/27/2016. 1 STEMI: Patient was hospitalized started on heparin and nitro, cardiology on consult, patient status post angioplasty and scheduled for right coronary artery angioplasty today, patient on anticoagulation with Plavix and aspirin, lisinopril, metoprolol, Lipitor on board. 2 Post PCI and stent placement of the circumflex and OM, for admission and ended up having PCI of the RCA on 12/26/2016 successfully with no major complication. 3 Cardiac syncope: Post VT most likely secondary to arrhythmia and cardiogenic shock and hypotension patient blood pressure and vitals have been stable, will monitor further arrhythmia at this point. 4 hypertension: Continue patient on lisinopril 2.5 mg a day metoprolol 12.5 mg twice a day watch for any further hypotension at this point. 5 hyperlipidemia: Patient was switched to Lipitor 80 mg a day for now. 5 hypothyroidism: Continue patient on levothyroxine 25 g daily. 6 hyperglycemia: Continue to watch blood sugar continue Accu-Chek with sliding scales coverage. 7 hypercalcemia: Calcium was elevated and repeated, remains elevated at 10.3. Will continue to monitor and hydrate. 8 abnormal liver function test: With significantly elevated AST with normal ALT and alk phos. This is most likely from hypotension and cardiogenic shock continue to stabilize patient hemodynamic status, repeat liver function tests improving AST 59, ALT 43, with ALK Phos 79 continue to monitor. More study and testing on abnormal liver function tests were performed came back negative no abnormality. Final diagnosis: 1 STEMI. 2 post PCI and stent placement of the circumflex and OM than the RCA a. 3 cardiac syncope 4 hypertension 5 hyperlipidemia 6 Hyperglycemia. Plan - Discharge Summary New Discharge Prescriptions: New Aspirin 81 mg PO DAILY Atorvastatin [Lipitor] 80 mg PO HS #90 tab Clopidogrel [Plavix] 75 mg PO DAILY #90 tab Lisinopril [Zestril] 2.5 mg PO DAILY #90 tab Metoprolol Tartrate [Lopressor] 12.5 mg PO BID #180 tab Nitroglycerin Sl Tabs [Nitrostat] 0.4 mg SUBLINGUAL Q5M PRN #25 tab PRN Reason: Chest Pain Continue Cholecalciferol (Vitamin D3) [Vitamin D3] 2,000 unit PO DAILY Levothyroxine Sodium [Synthroid] 25 mcg PO DAILY Melatonin 10 mg PO HS Multivitamins, Thera [Multivitamin (formulary)] 1 tab PO DAILY Discontinued Simvastatin [Zocor] 20 mg PO HS Bisoprol/Hydrochlorothiazide [Ziac 2.5-6.25 MG] 1 tab PO DAILY Ibuprofen [Motrin] 200 mg PO DAILY PRN PRN Reason: Pain No Action hydrOXYzine PAMOATE [Vistaril] 25 mg PO HS Loratadine 10 mg PO DAILY Discharge Medication List Cholecalciferol (Vitamin D3) [Vitamin D3] 2,000 unit PO DAILY 12/23/16 [History] Levothyroxine Sodium [Synthroid] 25 mcg PO DAILY 12/23/16 [History] Loratadine 10 mg PO DAILY 12/23/16 [History] Melatonin 10 mg PO HS 12/23/16 [History] Multivitamins, Thera [Multivitamin (formulary)] 1 tab PO DAILY 12/23/16 [History ] hydrOXYzine PAMOATE [Vistaril] 25 mg PO HS 12/23/16 [History] Aspirin 81 mg PO DAILY 12/27/16 [Rx] Atorvastatin [Lipitor] 80 mg PO HS #90 tab 12/27/16 [Rx] Clopidogrel [Plavix] 75 mg PO DAILY #90 tab 07/15/17 [Rx] Lisinopril [Zestril] 2.5 mg PO DAILY #90 tab 12/27/16 [Rx] Metoprolol Tartrate [Lopressor] 12.5 mg PO BID #180 tab 12/27/16 [Rx] Nitroglycerin Sl Tabs [Nitrostat] 0.4 mg SUBLINGUAL Q5M PRN #25 tab 12/27/16 [Rx ] Follow up Appointment(s)/Referral(s): Nena Heard MD [STAFF PHYSICIAN] - 1 Week Oft Edwards MD [Primary Care Provider] - 1 Week Discharge Disposition: HOME SELF-CARE
--- NOTE | 2016-12-27 13:42 | PN ---
This lady underwent stenting of RCA performed by me yesterday. Circumflex was patent. She has moderate LAD disease. Vital signs are stable, S1, S2 heard normally. Lungs are clear. Abdomen and lower extremity exam unchanged. Both groins are clean and dry. I reviewed her discharge medications. She can be discharged today and I will see her in the office in the next 7 to 10 days. Advised to do any strenuous activity and to take aspirin, Plavix and statin agents and all medications. Discharge instructions were given. Medications were reviewed and she will be discharged today. DIALLO
[2016-12-27 15:50] VITALS: PULSE 85; RESP 18
[2016-12-27 15:59] VITALS: BP 121/68; TEMP 97.1
== END 2016-12-27 18:47 | disposition home or self-care (01) | DRG 246 ==
LOC: EC 16:35 → 6ICU 16:57 → 6SEL 12-25 11:51
PROVIDERS: ADMIT Internal Medicine Geriatric Medicine; ATTEND Internal Medicine Geriatric Medicine
PROC: 4A023N7 Measurement of Cardiac Sampling and Pressure, Left Heart, Percutaneous Approach (ICD-10-PCS; 2016-12-23)
PROC: B2111ZZ Fluoroscopy of Multiple Coronary Arteries using Low Osmolar Contrast (ICD-10-PCS; 2016-12-23)
PROC: 0270356 Dilation of Coronary Artery, One Artery, Bifurcation, with Two Drug-eluting Intraluminal Devices, Percutaneous Approach (ICD-10-PCS; principal; 2016-12-23 17:00)
PROC: 027035Z Dilation of Coronary Artery, One Artery with Two Drug-eluting Intraluminal Devices, Percutaneous Approach (ICD-10-PCS; 2016-12-26)
PROC: B2101ZZ Fluoroscopy of Single Coronary Artery using Low Osmolar Contrast (ICD-10-PCS; 2016-12-26)
DX: I21.19 ST elevation (STEMI) myocardial infarction involving other coronary artery of inferior wall (principal); R57.0 Cardiogenic shock; E83.52 Hypercalcemia; I25.10 Atherosclerotic heart disease of native coronary artery without angina pectoris; E78.5 Hyperlipidemia, unspecified; E78.00 Pure hypercholesterolemia, unspecified; I10 Essential (primary) hypertension; M19.91 Primary osteoarthritis, unspecified site; R73.9 Hyperglycemia, unspecified; E03.9 Hypothyroidism, unspecified; E66.3 Overweight; Z68.34 Body mass index [BMI] 34.0-34.9, adult; Z90.710 Acquired absence of both cervix and uterus; Z95.5 Presence of coronary angioplasty implant and graft; Z87.891 Personal history of nicotine dependence; Z96.653 Presence of artificial knee joint, bilateral; Z79.899 Other long term (current) drug therapy; Z88.1 Allergy status to other antibiotic agents; Z88.0 Allergy status to penicillin; Z82.49 Family history of ischemic heart disease and other diseases of the circulatory system
CPT/HCPCS: 36415; 71010; 80048; 80053; 82550; 82553; 83735; 84100; 84484; 85025; 85610; 85730; 93005; 93306; 93458; 96374; 99285

== ENCOUNTER → 2017-01-08 | Outpatient (CLI) | payer MEDICARE ==
[2017-01-08 15:44] LABS: Basophils % (A) 1 %; CH 27.8; CHCM 32.5; Eosinophils # (A) 0.2 k/uL (0-0.7); Eosinophils % (A) 4 %; HCT 41.6 % (34.0-46.0); HDW 2.67; HGB 13.5 gm/dL (11.4-16.0); Luc # (Auto) 0.08; Luc % (Auto) 2; Lymphocytes # (A) 1.1 k/uL (1.0-4.8); Lymphocytes % (A) 21 %; MCH 27.9 pg (25.0-35.0); MCHC 32.5 g/dL (31.0-37.0); MCV 85.8 fL (80.0-100.0); Mean Platelet Volume 7.4; Monocytes # (A) 0.3 k/uL (0-1.0); Monocytes % (A) 6 %; Neutrophils # (A) 3.6 k/uL (1.3-7.7); Neutrophils % (A) 68 %; RBC 4.85 m/uL (3.80-5.40); RDW 13.8 % (11.5-15.5); WBC 5.3 k/uL (3.8-10.6); WBC (Perox) 5.68
== END | disposition home or self-care (01) ==
LOC: LABWHC1 15:29
PROVIDERS: ATTEND Family Medicine
DX: I25.119 Atherosclerotic heart disease of native coronary artery with unspecified angina pectoris (principal)
CPT/HCPCS: 36415; 85025

== ENCOUNTER → 2018-03-22 | Outpatient (CLI) | payer MEDICARE ==
[2018-03-22 13:25] LABS: Basophils % (A) 1 %; Eosinophils # (A) 0.2 k/uL (0-0.7); Eosinophils % (A) 3 %; HCT 43.4 % (34.0-46.0); HGB 14.2 gm/dL (11.4-16.0); Lymphocytes # (A) 1.1 k/uL (1.0-4.8); Lymphocytes % (A) 21 %; MCH 27.2 pg (25.0-35.0); MCHC 32.7 g/dL (31.0-37.0); MCV 83.2 fL (80.0-100.0); Mean Platelet Volume 6.7; Monocytes # (A) 0.2 k/uL (0-1.0); Monocytes % (A) 5 %; Neutrophils # (A) 3.7 k/uL (1.3-7.7); Neutrophils % (A) 69 %; Platelet Count 243 k/uL (150-450); RBC 5.21 m/uL (3.80-5.40); RDW 13.2 % (11.5-15.5); WBC 5.4 k/uL (3.8-10.6)
[2018-03-22 13:43] LABS: ALT 29 U/L (9-52); AST 21 U/L (14-36); Albumin 3.9 g/dL (3.5-5.0); Alkaline Phosphatase 98 U/L (38-126); Anion Gap 8 mmol/L; Blood Urea Nitrogen 15 mg/dL (7-17); Calcium 11.2 mg/dL (8.4-10.2); Carbon Dioxide 27 mmol/L (22-30); Chloride 108 mmol/L (98-107); Glucose 85 mg/dL (74-99); Potassium 4.9 mmol/L (3.5-5.1); Sodium 143 mmol/L (137-145); Total Bilirubin 0.4 mg/dL (0.2-1.3)
== END | disposition home or self-care (01) ==
LOC: LABWHC1 12:10
PROVIDERS: ATTEND Family Medicine
DX: I10 Essential (primary) hypertension (principal); I25.10 Atherosclerotic heart disease of native coronary artery without angina pectoris; E03.9 Hypothyroidism, unspecified; E55.9 Vitamin D deficiency, unspecified
CPT/HCPCS: 36415; 80053; 82306; 84443; 85025

== ENCOUNTER → 2018-03-23 | Outpatient (CLI) | payer MEDICARE ==
[2018-03-23 08:47] LABS: Cholesterol 150 mg/dL (<200); HDL Cholesterol 58 mg/dL (40-60); LDL Cholesterol,Calculated 77 mg/dL (0-99); Triglycerides 73 mg/dL (<150)
== END | disposition home or self-care (01) ==
LOC: LABWHC1 07:30
PROVIDERS: ATTEND Family Medicine
DX: I10 Essential (primary) hypertension (principal); I25.10 Atherosclerotic heart disease of native coronary artery without angina pectoris; E03.9 Hypothyroidism, unspecified; E55.9 Vitamin D deficiency, unspecified
CPT/HCPCS: 36415; 80061

== ENCOUNTER 2018-04-09 14:50 | Emergency (ER) | payer MEDICARE, OTHER ==
[2018-04-09 15:08] VITALS: RESP 16
--- NOTE | 2018-04-09 15:35 | ED ---
General Adult HPI - General Chief complaint: Extremity Injury, Lower Stated complaint: Fall-Knee Injury Time Seen by Provider: 04/09/18 15:14 Source: patient, RN notes reviewed Mode of arrival: ambulatory Limitations: no limitations - History of Present Illness Initial comments: Patient is a 67-year-old female with history of osteoarthritis who presents to the emergency department with complaints of left knee swelling after she fell today around 2 PM today. She was walking on the sidewalk carrying a box when she caught her heel on the sidewalk and fell landing on her knees and hands. She reports having a small abrasion on her left knee and right palm. She is mainly concerned about the left knee swelling she's noticed. She took Tylenol at 2:15 PM. She takes aspirin and Plavix. She does not know when her last tetanus vaccine was done. Patient denies head trauma, loss of consciousness, dizziness, fever, chills, shortness of breath, chest pain, back pain, abdominal pain, nausea or vomiting, numbness or tingling, headaches or visual changes, or any other complaints. - Related Data Home Medications Medication Instructions Recorded Confirmed Cholecalciferol (Vitamin D3) 2,000 unit PO DAILY 12/23/16 12/23/16 [Vitamin D3] Levothyroxine Sodium [Synthroid] 25 mcg PO DAILY 12/23/16 12/23/16 Loratadine 10 mg PO DAILY 12/23/16 12/23/16 Melatonin 10 mg PO HS 12/23/16 12/23/16 Multivitamins, Thera [Multivitamin 1 tab PO DAILY 12/23/16 12/23/16 (formulary)] hydrOXYzine PAMOATE [Vistaril] 25 mg PO HS 12/23/16 12/23/16 Previous Rx's Medication Instructions Recorded Aspirin 81 mg PO DAILY 12/27/16 Atorvastatin [Lipitor] 80 mg PO HS #90 tab 12/27/16 Clopidogrel [Plavix] 75 mg PO DAILY #90 tab 12/27/16 Lisinopril [Zestril] 2.5 mg PO DAILY #90 tab 12/27/16 Metoprolol Tartrate [Lopressor] 12.5 mg PO BID #180 tab 12/27/16 Nitroglycerin Sl Tabs [Nitrostat] 0.4 mg SUBLINGUAL Q5M PRN #25 tab 12/27/16 Allergies Allergy/AdvReac Type Severity Reaction Status Date / Time clindamycin [From Cleocin] Allergy Unknown Verified 04/09/18 15:08 erythromycin base Allergy Unknown Verified 04/09/18 15:08 Penicillins Allergy Unknown Verified 04/09/18 15:08 Review of Systems ROS Statement: Those systems with pertinent positive or pertinent negative responses have been documented in the HPI. ROS Other: All systems not noted in ROS Statement are negative. Past Medical History Past Medical History: Hyperlipidemia, Hypertension, Thyroid Disorder History of Any Multi-Drug Resistant Organisms: None Reported Past Surgical History: Appendectomy, Bladder Surgery, Heart Catheterization With Stent, Hysterectomy, Tonsillectomy Additional Past Surgical History / Comment(s): parathyroid sx '14, heart cath with stent 12/23/2016, bladder suspesion, colonoscopy with polyp removal Past Anesthesia/Blood Transfusion Reactions: Postoperative Nausea & Vomiting ( PONV) Date of Last Stent Placement:: 12/23/2016 Past Psychological History: No Psychological Hx Reported Smoking Status: Former smoker Past Alcohol Use History: Rare Past Drug Use History: None Reported - Past Family History Father Family Medical History: Diabetes Mellitus, Hypertension, Myocardial Infarction ( [place]) Additional Family Medical History / Comment(s): TB, type 1 brittle DM, HEart dz , triple bypass Mother Family Medical History: Dementia, Hyperlipidemia, Hypertension Additional Family Medical History / Comment(s): B knee replacment, tonsilectomy General Exam Limitations: no limitations General appearance: alert, in no apparent distress Head exam: Present: atraumatic, normocephalic Eye exam: Present: normal appearance, PERRL Neck exam: Present: full ROM Respiratory exam: Present: normal lung sounds bilaterally Cardiovascular Exam: Present: regular rate, normal rhythm Extremities exam: Present: full ROM, other (1x1 cm abrasion to left knee with mild swelling. There is also slight swelling of right knee. 1 cm linear abrasion to right palm. Slight bruising to bilateral knees.) Neurological exam: Present: alert, oriented X3 Psychiatric exam: Present: normal affect, normal mood Skin exam: Present: warm, dry Course Vital Signs 04/09/18 04/09/18 15:06 17:34 Temperature 98.2 F 98.0 F Pulse Rate 74 70 Respiratory 16 16 Rate Blood Pressure 142/65 138/62 O2 Sat by Pulse 99 99 Oximetry Medical Decision Making - Medical Decision Making This is a 67 year old female with complaints of left knee swelling after a mechanical fall earlier today. There is slight bruising of the knees; no significant hematoma. She would like her tetanus updated here. X-ray revealed osteoarthritis without fracture or dislocation. Case discussed in detail with attending physician Dr. Almonte. Disposition Clinical Impression: Contusion of knee Disposition: HOME SELF-CARE Condition: Good Instructions: Knee Pain (ED) Additional Instructions: Follow-up with PCP in 2 days. Return to emergency department if symptoms worsen or any other concerns. Is patient prescribed a controlled substance at d/c from ED?: No Referrals: Otf Edwards MD [Primary Care Provider] - 1-2 days
--- NOTE | 2018-04-09 16:05 | XR ---
Left knee HISTORY: Left knee pain 3 views of the left knee There is marginal spurring and joint space loss in the medial compartment. Alignment is maintained. B one mineralization is reduced. No fracture or dislocation. No evident joint effusion. IMPRESSION: Osteoarthritis.
[2018-04-09] MEDS ORDERED: DIPH,PERTUS(ACELL)TETVAC-LF 0.5 ML VIAL IM ONE (17:03)
[2018-04-09 17:35] VITALS: BP 138/62; PULSE 70; TEMP 98
== END 2018-04-09 17:35 | disposition home or self-care (01) ==
LOC: EC 14:50
DX: S80.01XA Contusion of right knee, initial encounter (principal); S80.02XA Contusion of left knee, initial encounter; S60.511A Abrasion of right hand, initial encounter; I10 Essential (primary) hypertension; E07.9 Disorder of thyroid, unspecified; Z95.5 Presence of coronary angioplasty implant and graft; Z87.891 Personal history of nicotine dependence; Z79.899 Other long term (current) drug therapy; Z88.1 Allergy status to other antibiotic agents; Z88.0 Allergy status to penicillin; Z23 Encounter for immunization; W01.0XXA Fall on same level from slipping, tripping and stumbling without subsequent striking against object, initial encounter; Y93.01 Activity, walking, marching and hiking; Y92.480 Sidewalk as the place of occurrence of the external cause
CPT/HCPCS: 90471; 90715; 99283

== ENCOUNTER 2018-05-30 02:07 | Inpatient (IN) | payer MEDICARE, OTHER ==
[2018-05-30] MEDS ORDERED: SODIUM CHLORIDE 0.9% 500 ML 500 ML IV STA (02:44)
[2018-05-30] MEDS ORDERED: MORPHINE SULFATE 2 MG/ML SYRINGE IVP STA (02:44)
[2018-05-30] MEDS ORDERED: ONDANSETRON 4 MG/2 ML VIAL IVP STA (02:44)
[2018-05-30 02:57] LABS: Basophils % (A) 0 %; Eosinophils # (A) 0.2 k/uL (0-0.7); Eosinophils % (A) 2 %; HCT 40.5 % (34.0-46.0); HGB 13.3 gm/dL (11.4-16.0); Lymphocytes # (A) 1.4 k/uL (1.0-4.8); Lymphocytes % (A) 21 %; MCH 27.5 pg (25.0-35.0); MCHC 32.8 g/dL (31.0-37.0); MCV 83.8 fL (80.0-100.0); Mean Platelet Volume 6.7; Monocytes # (A) 0.3 k/uL (0-1.0); Monocytes % (A) 5 %; Neutrophils # (A) 4.6 k/uL (1.3-7.7); Neutrophils % (A) 70 %; Platelet Count 205 k/uL (150-450); RBC 4.83 m/uL (3.80-5.40); RDW 13.6 % (11.5-15.5); WBC 6.6 k/uL (3.8-10.6)
[2018-05-30 03:09] LABS: ALT 63 U/L (9-52); AST 76 U/L (14-36); Albumin 3.7 g/dL (3.5-5.0); Alkaline Phosphatase 77 U/L (38-126); Anion Gap 8 mmol/L; Blood Urea Nitrogen 22 mg/dL (7-17); Calcium 10.6 mg/dL (8.4-10.2); Carbon Dioxide 25 mmol/L (22-30); Chloride 111 mmol/L (98-107); Glucose 107 mg/dL (74-99); Potassium 3.9 mmol/L (3.5-5.1); Sodium 144 mmol/L (137-145); Total Bilirubin 0.3 mg/dL (0.2-1.3); Total Protein 6.6 g/dL (6.3-8.2)
[2018-05-30 03:18] LABS: Creatine Kinase 44 U/L (30-135)
[2018-05-30 03:26] LABS: Amylase 627 U/L (30-110)
[2018-05-30 03:28] LABS: INR 0.9 (<1.2); Prothrombin Time 9.6 sec (9.0-12.0)
[2018-05-30 03:31] LABS: Creatine Kinase MB 0.8 ng/mL (0.0-2.4); Troponin I <0.012 ng/mL (0.000-0.034)
[2018-05-30 03:32] LABS: Partial Thromboplastin Time 21.8 sec (22.0-30.0)
--- NOTE | 2018-05-30 03:53 | ED ---
Abdominal Pain HPI - General Source: patient, EMS Mode of arrival: EMS Limitations: no limitations <Esther Lawrence - Last Filed: 05/30/18 04:09> <Marifer Pretty - Last Filed: 06/04/18 03:08> - General Chief Complaint: Abdominal Pain Stated Complaint: abd pain Time Seen by Provider: 05/30/18 02:24 - History of Present Illness Initial Comments: 67-year-old female patient presents to the emergency department today for evaluation of upper abdominal pain. Patient states that the pain woke her from sleep. Patient states the pain was 10 out of 10 on the pain scale and radiating through to her back. Patient states she is very nauseated and sweaty with the pain. States that she became dizzy and the pain persisted so she called EMS to bring her to the emergency department. She denies any vomiting, constipation, or diarrhea. Denies any fevers or chills with this. Patient denies any history of similar type pain. Patient does have history of myocardial infarction with 5 stents. States that she has had appendectomy no other abdominal surgeries. Denies any hematochezia or melena. Denies any hematuria, dysuria, urinary frequency, urinary urgency. Patient denies any recent rash, shortness breath, chest pain, numbness, tingling, headache, visual changes, or any other complaints. (Esther Lawrence) - Related Data Home Medications Medication Instructions Recorded Confirmed Cholecalciferol (Vitamin D3) 2,000 unit PO DAILY 12/23/16 05/30/18 [Vitamin D3] Levothyroxine Sodium [Synthroid] 25 mcg PO DAILY 12/23/16 05/30/18 Loratadine 10 mg PO DAILY 12/23/16 05/30/18 Melatonin 10 mg PO HS 12/23/16 05/30/18 Multivitamins, Thera [Multivitamin 1 tab PO DAILY 12/23/16 05/30/18 (formulary)] hydrOXYzine PAMOATE [Vistaril] 25 mg PO HS 12/23/16 05/30/18 Metoprolol Tartrate 12.5 mg PO BID 05/30/18 05/30/18 Previous Rx's Medication Instructions Recorded Aspirin 81 mg PO DAILY 12/27/16 Clopidogrel [Plavix] 75 mg PO DAILY #90 tab 12/27/16 Nitroglycerin Sl Tabs [Nitrostat] 0.4 mg SUBLINGUAL Q5M PRN #25 tab 12/27/16 Atorvastatin [Lipitor] 80 mg PO HS #90 tab 06/02/18 Pantoprazole Sodium [Protonix] 40 mg PO DAILY #14 tablet. 06/02/18 Allergies Allergy/AdvReac Type Severity Reaction Status Date / Time erythromycin base Allergy Unknown Verified 05/30/18 05:42 Penicillins Allergy Unknown Verified 05/30/18 05:42 clindamycin [From Cleocin] AdvReac Nausea & Verified 05/30/18 05:42 Vomiting Review of Systems ROS Other: All systems not noted in ROS Statement are negative. <Esther Lawrence - Last Filed: 05/30/18 04:09> ROS Other: All systems not noted in ROS Statement are negative. <Marifer Pretty - Last Filed: 06/04/18 03:08> ROS Statement: Those systems with pertinent positive or pertinent negative responses have been documented in the HPI. Past Medical History Past Medical History: Hyperlipidemia, Hypertension, Thyroid Disorder History of Any Multi-Drug Resistant Organisms: None Reported Past Surgical History: Appendectomy, Bladder Surgery, Heart Catheterization With Stent, Hysterectomy, Tonsillectomy Additional Past Surgical History / Comment(s): parathyroid sx '14, heart cath with stent 12/23/2016, bladder suspesion, colonoscopy with polyp removal Past Anesthesia/Blood Transfusion Reactions: Postoperative Nausea & Vomiting ( PONV) Date of Last Stent Placement:: 12/23/2016 Past Psychological History: No Psychological Hx Reported Smoking Status: Light tobacco smoker Past Alcohol Use History: Occasional Past Drug Use History: None Reported - Past Family History Father Family Medical History: Diabetes Mellitus, Hypertension, Myocardial Infarction ( [place]) Additional Family Medical History / Comment(s): TB, type 1 brittle DM, HEart dz , triple bypass Mother Family Medical History: Dementia, Hyperlipidemia, Hypertension Additional Family Medical History / Comment(s): B knee replacment, tonsilectomy <Esther Lawrence - Last Filed: 05/30/18 04:09> General Exam Limitations: no limitations General appearance: alert, in no apparent distress, other (This is a well- developed, well-nourished elderly female patient in no acute distress. Vital signs upon presentation are temperature 97.7F, pulse 63, respirations 16, blood pressure 131/74, pulse ox 99% on room air.) Eye exam: Present: normal appearance, PERRL, EOMI. Absent: scleral icterus, conjunctival injection, periorbital swelling ENT exam: Present: normal exam, normal oropharynx, mucous membranes moist Respiratory exam: Present: normal lung sounds bilaterally. Absent: respiratory distress, wheezes, rales, rhonchi, stridor Cardiovascular Exam: Present: regular rate, normal rhythm, normal heart sounds. Absent: systolic murmur, diastolic murmur, rubs, gallop, clicks GI/Abdominal exam: Present: soft, tenderness (Midepigastric and right upper quadrant tenderness), normal bowel sounds. Absent: distended, guarding, rebound , rigid Back exam: Present: normal inspection. Absent: CVA tenderness (R), CVA tenderness (L) Neurological exam: Present: alert, oriented X3, CN II-XII intact Psychiatric exam: Present: normal affect, normal mood Skin exam: Present: warm, dry, intact, normal color. Absent: rash <Esther Lawrence - Last Filed: 05/30/18 04:09> Vital Signs 05/30/18 05/30/18 02:18 03:56 Temperature 97.7 F Pulse Rate 63 78 Respiratory 16 16 Rate Blood Pressure 131/74 122/71 O2 Sat by Pulse 99 94 L Oximetry Medical Decision Making - Lab Data Result diagrams: 05/30/18 02:30 05/30/18 02:30 - EKG Data -: EKG Interpreted by [place] - Radiology Data Radiology results: report reviewed, image reviewed <Esther Lawrence - Last Filed: 05/30/18 04:09> - Lab Data Result diagrams: 06/02/18 07:32 06/02/18 07:32 <Marifer Pretty - Last Filed: 06/04/18 03:08> - Medical Decision Making 67-year-old female patient presented to the emergency department today for evaluation of upper abdominal pain radiating through to the back. This woke her from sleep this evening. Patient denies history of similar symptoms. Physical examination did reveal midepigastric abdominal tenderness. Labs reviewed and did reveal elevated BUN at 22, AST 76, a LT 63, amylase 627, lipase 11,026. Urinalysis did show urine pH of 8.5, trace protein, moderate leukocyte esterase, 32 white blood cells, rare urine bacteria, and rare mucous. EKG showed normal sinus rhythm. Patient's symptoms and lab findings are consistent with acute pancreatitis. Patient denies history of alcohol use. CT of the abdomen and pelvis showed normal gallbladder with no dilated ducts. We will order ultrasound for the morning. Patient will be fluid resuscitated, pain management and nausea management will be provided. Dr. Schaffer is accepting. (Esther Lawrence) I personally saw and examined the patient. I reviewed and agree with the mid- level provider findings including all diagnostic interpretations and treatment plans as written unless otherwise stated. Patient care was discussed with Dr. Carpio who accepts the admission for acute pancreatitis. (Marifer Pretty) - Lab Data Lab Results 05/30/18 05/30/18 05/30/18 Range/Units 02:30 02:30 02:30 WBC 6.6 (3.8-10.6) k/uL RBC 4.83 (3.80-5.40) m/uL Hgb 13.3 (11.4-16.0) gm/dL Hct 40.5 (34.0-46.0) % MCV 83.8 (80.0-100.0) fL MCH 27.5 (25.0-35.0) pg MCHC 32.8 (31.0-37.0) g/dL RDW 13.6 (11.5-15.5) % Plt Count 205 (150-450) k/uL Neutrophils % 70 % Lymphocytes % 21 % Monocytes % 5 % Eosinophils % 2 % Basophils % 0 % Neutrophils # 4.6 (1.3-7.7) k/uL Lymphocytes # 1.4 (1.0-4.8) k/uL Monocytes # 0.3 (0-1.0) k/uL Eosinophils # 0.2 (0-0.7) k/uL Basophils # 0.0 (0-0.2) k/uL PT (9.0-12.0) sec INR (<1.2) APTT (22.0-30.0) sec Sodium 144 (137-145) mmol/L Potassium 3.9 (3.5-5.1) mmol/L Chloride 111 H (98-107) mmol/L Carbon Dioxide 25 (22-30) mmol/L Anion Gap 8 mmol/L BUN 22 H (7-17) mg/dL Creatinine 0.63 (0.52-1.04) mg/dL Est GFR (CKD-EPI)AfAm >90 (>60 ml/min/1.73 sqM) Est GFR (CKD-EPI)NonAf >90 (>60 ml/min/1.73 sqM) Glucose 107 H (74-99) mg/dL Plasma Lactic Acid Jim (0.7-2.0) mmol/L Calcium 10.6 H (8.4-10.2) mg/dL Total Bilirubin 0.3 (0.2-1.3) mg/dL AST 76 H (14-36) U/L ALT 63 H (9-52) U/L Alkaline Phosphatase 77 (38-126) U/L Total Creatine Kinase 44 (30-135) U/L CK-MB (CK-2) 0.8 (0.0-2.4) ng/mL CK-MB (CK-2) Rel Index 1.8 Troponin I <0.012 (0.000-0.034) ng/mL Total Protein 6.6 (6.3-8.2) g/dL Albumin 3.7 (3.5-5.0) g/dL Amylase 627 H* (30-110) U/L Lipase 31784 H (23-300) U/L Urine Color Urine Appearance (Clear) Urine pH (5.0-8.0) Ur Specific Ridge (1.001-1.035) Urine Protein (Negative) Urine Glucose (UA) (Negative) Urine Ketones (Negative) Urine Blood (Negative) Urine Nitrite (Negative) Urine Bilirubin (Negative) Urine Urobilinogen (<2.0) mg/dL Ur Leukocyte Esterase (Negative) Urine RBC (0-5) /hpf Urine WBC (0-5) /hpf Ur Squamous Epith Cells (0-4) /hpf Urine Bacteria (None) /hpf Urine Mucus (None) /hpf 05/30/18 05/30/18 05/30/18 Range/Units 02:30 02:30 03:25 WBC (3.8-10.6) k/uL RBC (3.80-5.40) m/uL Hgb (11.4-16.0) gm/dL Hct (34.0-46.0) % MCV (80.0-100.0) fL MCH (25.0-35.0) pg MCHC (31.0-37.0) g/dL RDW (11.5-15.5) % Plt Count (150-450) k/uL Neutrophils % % Lymphocytes % % Monocytes % % Eosinophils % % Basophils % % Neutrophils # (1.3-7.7) k/uL Lymphocytes # (1.0-4.8) k/uL Monocytes # (0-1.0) k/uL Eosinophils # (0-0.7) k/uL Basophils # (0-0.2) k/uL PT 9.6 (9.0-12.0) sec INR 0.9 (<1.2) APTT 21.8 L (22.0-30.0) sec Sodium (137-145) mmol/L Potassium (3.5-5.1) mmol/L Chloride (98-107) mmol/L Carbon Dioxide (22-30) mmol/L Anion Gap mmol/L BUN (7-17) mg/dL Creatinine (0.52-1.04) mg/dL Est GFR (CKD-EPI)AfAm (>60 ml/min/1.73 sqM) Est GFR (CKD-EPI)NonAf (>60 ml/min/1.73 sqM) Glucose (74-99) mg/dL Plasma Lactic Acid Jim 1.1 (0.7-2.0) mmol/L Calcium (8.4-10.2) mg/dL Total Bilirubin (0.2-1.3) mg/dL AST (14-36) U/L ALT (9-52) U/L Alkaline Phosphatase (38-126) U/L Total Creatine Kinase (30-135) U/L CK-MB (CK-2) (0.0-2.4) ng/mL CK-MB (CK-2) Rel Index Troponin I (0.000-0.034) ng/mL Total Protein (6.3-8.2) g/dL Albumin (3.5-5.0) g/dL Amylase (30-110) U/L Lipase (23-300) U/L Urine Color Yellow Urine Appearance Clear (Clear) Urine pH 8.5 H (5.0-8.0) Ur Specific Ridge 1.022 (1.001-1.035) Urine Protein Trace H (Negative) Urine Glucose (UA) Negative (Negative) Urine Ketones Negative (Negative) Urine Blood Negative (Negative) Urine Nitrite Negative (Negative) Urine Bilirubin Negative (Negative) Urine Urobilinogen <2.0 (<2.0) mg/dL Ur Leukocyte Esterase Moderate H (Negative) Urine RBC 2 (0-5) /hpf Urine WBC 32 H (0-5) /hpf Ur Squamous Epith Cells <1 (0-4) /hpf Urine Bacteria Rare H (None) /hpf Urine Mucus Rare H (None) /hpf - EKG Data EKG Comments: EKG obtained at 0404 shows normal sinus rhythm with a ventricular rate of 80, IL interval 170, QRS duration 90, QT 406, QTc 468. No evidence of ST elevation or depression. (Esther Lawrence) - Radiology Data CT abdomen and pelvis is obtained. Report was reviewed in its entirety. Impression by Dr. Winston shows negative computed tomography scan abdomen and pelvis. Minimal subsegmental atelectasis at the lung bases. (Esther Lawrence ) Disposition Decision to Admit Reason: Admit from EC Decision Date: 05/30/18 Decision Time: 04:14 <Esther Lawrence - Last Filed: 05/30/18 04:09> <Mariefr Pretty - Last Filed: 06/04/18 03:08> Clinical Impression: Acute pancreatitis Disposition: ADMITTED IP TO THIS [facility] Condition: Good
--- NOTE | 2018-05-30 03:55 | CT ---
EXAMINATION TYPE: CT abdomen pelvis w con DATE OF EXAM: 05/30/2018 COMPARISON: None HISTORY: Epigastric pain, abd pain CT DLP: 869 mGycm Automated exposure control for dose reduction was used. TECHNIQUE: Helical acquisition of images was performed from the lung bases through the pelvis. CONTRAST: Performed without Oral Contrast and with IV Contrast, patient injected with 100 mL of Isovue 300. FINDINGS: There is minimal subsegmental atelectasis at the lung bases. There is no pericardial effusion. There is 2 cm hypodensity in the anterior left lobe of the liver that is probably a hemangioma. There is de layed peripheral enhancement. Gallbladder appears normal. Bile ducts are not dilated. Spleen appears normal. There is no pancreatic mass. There is no adrenal mass. Kidneys show satisfactory contrast opacification. There is [address] upper pole left kidney. There is no hydronephrosis. There is no retroperitoneal adenopathy. Abdomi nal aorta is atheromatous. Bladder distends smoothly. There is no inguinal hernia. There is no free fluid in the pelvis. I see n o intestinal wall thickening. There are no dilated loops. There is no evidence of a thickened appendi x. Appendix is not definitely seen. There is no mesenteric edema or adenopathy. Bony structures are i ntact. IMPRESSION: NEGATIVE CT SCAN ABDOMEN AND PELVIS. MINIMAL SUBSEGMENTAL ATELECTASIS AT THE LUNG BASES.
[2018-05-30 03:57] LABS: Appearance,Urine Clear (Clear); Bacteria,Urine Rare /hpf; Bilirubin,Urine Negative (Negative); Blood,Urine Negative (Negative); Color,Urine Yellow; Glucose,Urine (UA) Negative (Negative); Ketones,Urine Negative (Negative); Leukocyte Esterase,Urine Moderate (Negative); Mucus,Urine Rare /hpf; Nitrite,Urine Negative (Negative); PH, Urine 8.5 (5.0-8.0); Protein,Urine Trace (Negative); RBC,Urine 2 /hpf (0-5); Specific Gravity,Urine 1.022 (1.001-1.035); Squamous Epithelial Cell,Urine <1 /hpf (0-4); Urobilinogen,Urine <2.0 mg/dL (<2.0); WBC,Urine 32 /hpf (0-5)
[2018-05-30 04:00] LABS: Lipase 11026 U/L (23-300)
[2018-05-30] MEDS ORDERED: SODIUM CHLORIDE 0.9% 1,000 ML IV ONE (04:01)
[2018-05-30] MEDS ORDERED: ONDANSETRON 4 MG/2 ML VIAL IVP PRN (04:07)
[2018-05-30] MEDS ORDERED: NALOXONE 0.4 MG/ML 1 ML VIAL IV PRN (04:07)
[2018-05-30] MEDS: SODIUM CHLORIDE 0.9% 1,000 ML IV SCH ×4 (05:21→23:11)
[2018-05-30 05:37] VITALS: BMI 31.7
[2018-05-30] MEDS: MORPHINE SULFATE 4 MG/ML SYRINGE IV PRN ×3 (08:19→17:24)
--- NOTE | 2018-05-30 08:33 | US ---
EXAMINATION TYPE: US abdomen limited DATE OF EXAM: 05/30/2018 COMPARISON: CT 2018 CLINICAL HISTORY: Pain; Acute Pancreatitis. Abdomen pain and nausea x 2 days EXAM MEASUREMENTS: Liver Length: 16.1 cm Gallbladder Wall: 0.1 cm CBD: 0.7 cm Right Kidney: 11.0 x 4.8 x 4.2 cm Pancreas: prominent, hyperechoic, tail obscured by overlying midline bowel gas Liver: 2.4 x 2.0 x 2.4cm hypoechoic lesion anterior left lobe Gallbladder: borderline hydropic, echogenic foci seen within fundus Evidence for sonographic Johnson's sign: yes CBD: mildly dilated Right Kidney: wnl The gallbladder is unremarkable. The gallbladder wall measures 1 mm. The distal common hepatic duct m easures 7 mm. Views of the pancreas are normal. The liver is normal in size. There is a 2.4 cm hypoechoic lesion in the left lobe of the liver. The right kidney is unremarkable. IMPRESSION: 1. MILDLY DILATED GALLBLADDER. 2. 2.4 CM LESION IN THE LEFT LOBE OF THE LIVER IS NONSPECIFIC AND WARRANTS FURTHER FOLLOW-UP.
[2018-05-30] MEDS: MELATONIN 5 MG TABLET PO SCH (20:50)
[2018-05-30] MEDS: hydrOXYzine PAMOATE 25 MG CAP PO SCH (20:50)
[2018-05-30] MEDS: METOPROLOL TARTRATE 12.5 MG TAB PO SCH (20:51)
--- NOTE | 2018-05-30 23:39 | P.HPIM ---
History of Present Illness H&P Date: 05/30/18 This a pleasant 67-year-old lady patient of Dr. Mcarthur. She has underlying history of hypertension, hypothyroidism, primary hyperparathyroidism secondary to secreting parathyroid adenoma, hyperlipidemia, CAD, with prior cardiac stents , in December 2016, admitted to the hospital secondary to abdominal pain and bloating, pressure in the mid center of the abdomen, starting at 1:00 in the morning. It is colicky in nature, radiating all over the abdomen and the back, patient does not have any significant right-sided abdominal pain to the right subcostal region, patient has no prior episode of pancreatitis in the past, patient does not drink alcohol except on holiday or location. Her last meal consisted of with history cheek and, buttered vegetables, potato chips, a glass of wine. No sick contacts., patient was admitted to the emergency room with a value of lipase in the 11,000 along with a imaging studies that shows slight hydrops of the gallbladder without any common bile duct obstruction, ultrasound of the abdomen showed mild prominent gallbladder with mild by dilatation, gallbladder wall 1 mm, distal common bile duct 7 mm, 2.4 cm lesion left lobe liver, nonspecific, CAT scan of the abdomen failed to reveal any pancreatic pseudocyst or abscess, liver lesion was more consistent of hemangioma liver function test shows normal alkaline [employer] and slight elevation of AST and ALT, patient's admitted and was Nothing by mouth, except for meds bowel rest, IV fluid for hydration, we'll going to hold off starting at this time urinalysis shows urine WBC of 32, urine pH of 8.5, calcium level of 10.6 Review of Systems Constitutional: Reports as per HPI, Denies anorexia, Denies chills, Denies chronic headaches, Denies chronic pain, Denies daytime sleepiness, Denies fatigue, Denies fever, Denies lethargy, Denies malaise, Denies night sweats, Denies poor appetite, Denies sweats, Denies weakness, Denies weight gain, Denies weight loss Ears, nose, mouth and throat: Reports as per HPI, Denies ant. neck pain, Denies bleeding gums, Denies dental pain, Denies dysphagia, Denies epistaxis, Denies headache, Denies hoarseness, Denies mouth pain, Denies nasal congestion, Denies nasal discharge, Denies neck fullness/pressure, Denies neck lump, Denies nose pain, Denies odynophagia, Denies post-nasal drip, Denies sinus pain, Denies sinus pressure, Denies swelling in mouth, Denies swelling in throat, Denies sore throat, Denies vertigo, Denies voice changes Cardiovascular: Reports as per HPI, Denies chest pain, Denies claudication, Denies decreased exercise tolerance, Denies dyspnea on exertion, Denies edema, Denies high blood pressure, Denies irregular heart beat, Denies leg edema, Denies lightheadedness, Denies orthopnea, Denies palpitations, Denies paroxysmal nocturnal dyspnea, Denies phlebitis, Denies rapid heart beat, Denies shortness of breath, Denies syncope Respiratory: Reports as per HPI, Denies congestion, Denies cough, Denies cough with sputum, Denies dyspnea, Denies excessive sputum, Denies hemoptysis, Denies home oxygen, Denies pain, Denies pain on inspiration, Denies pleurisy, Denies respiratory infections, Denies sleep apnea, Denies snoring, Denies wheezing Gastrointestinal: Reports as per HPI, Denies abdominal pain, Denies belching, Denies bloating, Denies BRBPR, Denies change in bowel habits, Denies coffee ground emesis, Denies constipation, Denies diarrhea, Denies dyspepsia, Denies early satiety, Denies excessive gas, Denies heartburn, Denies hematemesis, Denies hematochezia, Denies indigestion, Denies jaundice, Denies lactose intolerance, Denies loss of appetite, Denies melena, Denies nausea, Denies vomiting Genitourinary: Reports as per HPI, Denies abnormal vaginal bleeding, Denies decreased libido, Denies difficulty conceiving, Denies difficulty voiding, Denies dysmenorrhea, Denies dyspareunia, Denies dysuria, Denies flank pain, Denies genital sores, Denies hematuria, Denies hot flashes, Denies incomplete emptying, Denies kidney stones, Denies menorrhagia, Denies mixed incontinence, Denies nocturia, Denies pelvic pain, Denies post void dribbling, Denies , Denies prolapse symptoms, Denies stress incontinence, Denies urge incontinence , Denies urgency, Denies urinary frequency, Denies vaginal discharge, Denies vaginal dryness, Denies vaginal itching, Denies vaginal odor Menstruation: Reports as per HPI Musculoskeletal: Reports as per HPI, Denies arm numbness/tingling, Denies atrophy, Denies fractures, Denies frequent falls, Denies gait dysfunction, Denies hot joints, Denies leg numbness/tingling, Denies limitation of motion, Denies loss of height, Denies low back pain, Denies morning stiffness, Denies muscle cramps, Denies muscle weakness, Denies myalgias, Denies neck pain, Denies neck stiffness, Denies prior amputations, Denies redness of joints, Denies shooting arm pain, Denies shooting leg pain Integumentary: Reports as per HPI, Denies acne, Denies boils, Denies brittle nails, Denies change in hair/nails, Denies color changes, Denies darkening of skin, Denies depigmentation, Denies dryness, Denies foot/leg ulcers, Denies growths, Denies hirsutism, Denies lesions, Denies onychomycosis, Denies pruritus , Denies rash, Denies sores, Denies striae, Denies unusual bruising, Denies wounds Neurological: Reports as per HPI, Denies aphasia, Denies ataxia, Denies balance difficulties, Denies burning pain, Denies change in mentation, Denies change in smell/taste, Denies change in speech, Denies confusion, Denies convulsions, Denies double vision, Denies gait dysfunction, Denies head injury, Denies headaches, Denies hearing difficulties, Denies lack of coordination, Denies loss of vision, Denies memory loss, Denies migraines, Denies motor disturbance, Denies numbness, Denies paralysis, Denies paresthesias, Denies seizures, Denies sensory deficit, Denies spasticity, Denies syncope, Denies tic, Denies tingling , Denies transient paralysis, Denies tremors, Denies vertigo, Denies weakness, Denies visual changes Psychiatric: Reports as per HPI, Denies anhedonia, Denies anxiety, Denies anxiety attacks, Denies change in appetite, Denies change in libido, Denies change in sleep habits, Denies confusion, Denies depression, Denies difficulty concentrating, Denies disorientation, Denies hallucinations, Denies hopelessness , Denies hypersomnia, Denies insomnia, Denies irritability, Denies memory loss, Denies mood swings, Denies paranoia, Denies sadness/tearfulness, Denies sleep disturbances, Denies suicidal ideation Endocrine: Reports as per HPI, Denies cold intolerance, Denies deepening of the voice, Denies excessive sweating, Denies excessive thirst, Denies fatigue, Denies flushing, Denies heat intolerance, Denies high blood sugars, Denies increase in ring/shoe/hat size, Denies low blood sugars, Denies nocturia, Denies palpitations, Denies polydipsia, Denies polyphagia, Denies polyuria, Denies proptosis, Denies recent glucocorticoid use, Denies thyroid mass, Denies weight change Past Medical History Past Medical History: Hyperlipidemia, Hypertension, Thyroid Disorder History of Any Multi-Drug Resistant Organisms: None Reported Past Surgical History: Appendectomy, Bladder Surgery, Heart Catheterization With Stent, Hysterectomy, Tonsillectomy Additional Past Surgical History / Comment(s): parathyroid sx '14, heart cath with stent 12/23/2016 total of 5 stents, bladder suspesion, colonoscopy with polyp removal. ganglion cyst and dermoid cyst Past Anesthesia/Blood Transfusion Reactions: Postoperative Nausea & Vomiting ( PONV) Date of Last Stent Placement:: 12/23/2016 Past Psychological History: No Psychological Hx Reported Smoking Status: Former smoker Past Alcohol Use History: Occasional Past Drug Use History: None Reported - Past Family History Father Family Medical History: Diabetes Mellitus, Hypertension, Myocardial Infarction ( [place]) Additional Family Medical History / Comment(s): TB, type 1 brittle DM, HEart dz , triple bypass Mother Family Medical History: Dementia, Hyperlipidemia, Hypertension Additional Family Medical History / Comment(s): B knee replacment, tonsilectomy Medications and Allergies Home Medications Medication Instructions Recorded Confirmed Type Cholecalciferol (Vitamin D3) 2,000 unit PO DAILY 12/23/16 05/30/18 History [Vitamin D3] Levothyroxine Sodium [Synthroid] 25 mcg PO DAILY 12/23/16 05/30/18 History Loratadine 10 mg PO DAILY 12/23/16 05/30/18 History Melatonin 10 mg PO HS 12/23/16 05/30/18 History Multivitamins, Thera [Multivitamin 1 tab PO DAILY 12/23/16 05/30/18 History (formulary)] hydrOXYzine PAMOATE [Vistaril] 25 mg PO HS 12/23/16 05/30/18 History Aspirin 81 mg PO DAILY 12/27/16 05/30/18 Rx Atorvastatin [Lipitor] 80 mg PO HS #90 tab 12/27/16 05/30/18 Rx Clopidogrel [Plavix] 75 mg PO DAILY #90 tab 12/27/16 05/30/18 Rx Nitroglycerin Sl Tabs [Nitrostat] 0.4 mg SUBLINGUAL Q5M PRN #25 tab 12/27/16 Rx Metoprolol Tartrate 12.5 mg PO BID 05/30/18 05/30/18 History Allergies Allergy/AdvReac Type Severity Reaction Status Date / Time erythromycin base Allergy Unknown Verified 05/30/18 05:42 Penicillins Allergy Unknown Verified 05/30/18 05:42 clindamycin [From Cleocin] AdvReac Nausea & Verified 05/30/18 05:42 Vomiting Physical Exam Vitals: Vital Signs Temp Pulse Pulse Resp BP BP Pulse Ox 05/30/18 12:31 97.5 F L 67 16 116/65 94 L 05/30/18 07:19 97.3 F L 63 16 116/75 99 05/30/18 05:21 97.4 F L 73 18 126/72 96 05/30/18 03:56 78 16 122/71 94 L 05/30/18 02:18 97.7 F 63 16 131/74 99 Intake and Output 05/30/18 05/30/18 05/30/18 06:59 14:59 22:59 Intake Total 1550 Output Total 275 1200 Balance 1275 -1200 Intake: Intake, IV Titration 1550 Amount Sodium Chloride 0.9% 1, 1000 000 ml @ 999 mls/hr IV . Q1H1M ONE Rx#:[id number] Sodium Chloride 0.9% 500 500 ml 500 ml @ 999 mls/hr IV .Q31M STA Rx#:[id number] cefTRIAXone 1,000 mg In 50 Sodium Chloride 0.9% 50 ml @ 100 mls/hr IVPB ONCE STA Rx#:[id number] Output: Urine 275 1200 Other: Voiding Method Toilet Toilet # Voids 1 1 Weight 83.915 kg - Constitutional General appearance: cooperative, no acute distress, obese - EENT Eyes: anicteric sclerae, EOMI, PERRLA ENT: NA/AT, normal oropharynx - Neck Neck: normal ROM - Respiratory Respiratory: bilateral: CTA, negative: diminished, dullness - Cardiovascular Rhythm: regular Heart sounds: normal: S1 Abnormal Heart Sounds: no systolic murmur, no diastolic murmur, no rub, no S3 Gallop, no S4 Gallop, no click, no other - Gastrointestinal General gastrointestinal: soft Localized gastrointestinal: tender: LUQ, LLQ, epigastric periumbilical, guarding : LUQ, LLQ - Integumentary Integumentary: no calor, no cellulitis, no cyanotic, decreased turgor, no flushed, no jaundiced, normal, no normal turgor, no pale, no rash, no ulcer - Neurologic Neurologic: CNII-XII intact - Musculoskeletal Musculoskeletal: gait normal, strength equal bilaterally - Psychiatric Psychiatric: A&O x's 3, appropriate affect, intact judgment & insight Results CBC & Chem 7: 05/30/18 02:30 05/30/18 02:30 Labs: Abnormal Lab Results - Last 24 Hours (Table) 05/30/18 05/30/18 05/30/18 Range/Units 02:30 02:30 03:25 APTT 21.8 L (22.0-30.0) sec Chloride 111 H (98-107) mmol/L BUN 22 H (7-17) mg/dL Glucose 107 H (74-99) mg/dL Calcium 10.6 H (8.4-10.2) mg/dL AST 76 H (14-36) U/L ALT 63 H (9-52) U/L Amylase 627 H* (30-110) U/L Lipase 79187 H (23-300) U/L Urine pH 8.5 H (5.0-8.0) Urine Protein Trace H (Negative) Ur Leukocyte Esterase Moderate H (Negative) Urine WBC 32 H (0-5) /hpf Urine Bacteria Rare H (None) /hpf Urine Mucus Rare H (None) /hpf Microbiology - Last 24 Hours (Table) 05/30/18 03:25 Urine Culture - Preliminary Urine,Voided Laboratory Results WBC 6.6 k/uL (3.8-10.6) 05/30/18 02:30 RBC 4.83 m/uL (3.80-5.40) 05/30/18 02:30 Hgb 13.3 gm/dL (11.4-16.0) 05/30/18 02:30 Hct 40.5 % (34.0-46.0) 05/30/18 02:30 MCV 83.8 fL (80.0-100.0) 05/30/18 02:30 MCH 27.5 pg (25.0-35.0) 05/30/18 02:30 MCHC 32.8 g/dL (31.0-37.0) 05/30/18 02:30 RDW 13.6 % (11.5-15.5) 05/30/18 02:30 Plt Count 205 k/uL (150-450) 05/30/18 02:30 Neutrophils % 70 % 05/30/18 02:30 Lymphocytes % 21 % 05/30/18 02:30 Monocytes % 5 % 05/30/18 02:30 Eosinophils % 2 % 05/30/18 02:30 Basophils % 0 % 05/30/18 02:30 Neutrophils # 4.6 k/uL (1.3-7.7) 05/30/18 02:30 Lymphocytes # 1.4 k/uL (1.0-4.8) 05/30/18 02:30 Monocytes # 0.3 k/uL (0-1.0) 05/30/18 02:30 Eosinophils # 0.2 k/uL (0-0.7) 05/30/18 02:30 Basophils # 0.0 k/uL (0-0.2) 05/30/18 02:30 PT 9.6 sec (9.0-12.0) 05/30/18 02:30 INR 0.9 (<1.2) 05/30/18 02:30 APTT 21.8 sec (22.0-30.0) L 05/30/18 02:30 Sodium 144 mmol/L (137-145) 05/30/18 02:30 Potassium 3.9 mmol/L (3.5-5.1) 05/30/18 02:30 Chloride 111 mmol/L (98-107) H 05/30/18 02:30 Carbon Dioxide 25 mmol/L (22-30) 05/30/18 02:30 Anion Gap 8 mmol/L 05/30/18 02:30 BUN 22 mg/dL (7-17) H 05/30/18 02:30 Creatinine 0.63 mg/dL (0.52-1.04) 05/30/18 02:30 Est GFR (CKD-EPI)AfAm >90 (>60 ml/min/1.73 sqM) 05/30/18 02:30 Est GFR (CKD-EPI)NonAf >90 (>60 ml/min/1.73 sqM) 05/30/18 02:30 Glucose 107 mg/dL (74-99) H 05/30/18 02:30 Plasma Lactic Acid Jim 1.1 mmol/L (0.7-2.0) 05/30/18 02:30 Calcium 10.6 mg/dL (8.4-10.2) H 05/30/18 02:30 Total Bilirubin 0.3 mg/dL (0.2-1.3) 05/30/18 02:30 AST 76 U/L (14-36) H 05/30/18 02:30 ALT 63 U/L (9-52) H 05/30/18 02:30 Alkaline Phosphatase 77 U/L (38-126) 05/30/18 02:30 Total Creatine Kinase 44 U/L (30-135) 05/30/18 02:30 CK-MB (CK-2) 0.8 ng/mL (0.0-2.4) 05/30/18 02:30 CK-MB (CK-2) Rel Index 1.8 05/30/18 02:30 Troponin I <0.012 ng/mL (0.000-0.034) 05/30/18 02:30 Total Protein 6.6 g/dL (6.3-8.2) 05/30/18 02:30 Albumin 3.7 g/dL (3.5-5.0) 05/30/18 02:30 Amylase 627 U/L (30-110) H* 05/30/18 02:30 Lipase 17845 U/L (23-300) H 05/30/18 02:30 Urine Color Yellow 05/30/18 03:25 Urine Appearance Clear (Clear) 05/30/18 03:25 Urine pH 8.5 (5.0-8.0) H 05/30/18 03:25 Ur Specific [place] 1.022 (1.001-1.035) 05/30/18 03:25 Urine Protein Trace (Negative) H 05/30/18 03:25 Urine Glucose (UA) Negative (Negative) 05/30/18 03:25 Urine Ketones Negative (Negative) 05/30/18 03:25 Urine Blood Negative (Negative) 05/30/18 03:25 Urine Nitrite Negative (Negative) 05/30/18 03:25 Urine Bilirubin Negative (Negative) 05/30/18 03:25 Urine Urobilinogen <2.0 mg/dL (<2.0) 05/30/18 03:25 Ur Leukocyte Esterase Moderate (Negative) H 05/30/18 03:25 Urine RBC 2 /hpf (0-5) 05/30/18 03:25 Urine WBC 32 /hpf (0-5) H 05/30/18 03:25 Ur Squamous Epith Cells <1 /hpf (0-4) 05/30/18 03:25 Urine Bacteria Rare /hpf (None) H 05/30/18 03:25 Urine Mucus Rare /hpf (None) H 05/30/18 03:25 Thrombosis Risk Factor Assmnt - DVT/VTE Prophylaxis DVT/VTE Prophylaxis: Pharmacologic Prophylaxis ordered - Choose All That Apply Each Factor Represents 1 point: Acute AL, Obesity (BMI >25) Each Risk Factor Represents 2 Points: Age 61-74 years Thrombosis Risk Factor Assessment Total Risk Factor Score: 4 Thrombosis Risk Factor Assessment Level: Moderate Risk Assessment and Plan Plan: 1. Acute pancreatitis, possibly related to ingestion of alcohol, however statin cannot be ruled out as a culprit for the current pancreatitis, patient would be given IV hydration, and bowel rest. Clear liquid diet can be initiated once abdominal pain and lipase has declined further, no evidence of common bile duct obstruction at this time, alkaline phosphatase is normal, ultrasound of the abdomen shows normal common bile duct, however spontaneous passage of a common bile duct stone cannot be completely ruled out. However this is less likely. Patient wants to hold off any surgical evaluation at this time 2. Hypercalcemia, known history of parathyroid adenoma she had parathyroid adenoma removal 4 years ago, elevation of calcium, this could be related to dehydration, against dietary source, PTH level to be obtained, vitamin D levels to be obtained 3. CAD with prior AL December 2006, with 5 cardiac stents, patient will be off statins secondary to significant pancreatitis other home medications to be reassured except for aspirin and Plavix, this can be reassured once patient would be cleared for any surgical intervention, continue to monitor progress continue on metoprolol 25 mg twice a day 4. Mild hydrops of the gallbladder, negative for Johnson sign no obstructive jaundice noted 5. Elevation of liver function tests possibly related to Can patient has episodic use of alcohol however this is wondering 1 glass on a very sporadic basis 7. 2.4 lesion left liver lobe, suspicious of hemangioma, benign 6. Hypothyroidism on levothyroxine 25 mg daily, no levels obtained during the admission, continue to monitor as an outpatient 7. Chronic insomnia, on maintenance this is 25 mg at bedtime and melatonin 10 mg at bedtime 8. Pyuria, with generalized abdominal pain from acute pancreatitis however patient does not relate to dysuria, cultures to be done, patient was given one- time dose of Rocephin emergency room, we'll going to monitor and evaluate this further, Rocephin is not continued at this time GI prophylaxis DVT prophylaxis [facility]
[2018-05-31] MEDS: MORPHINE SULFATE 4 MG/ML SYRINGE IV PRN (04:15)
[2018-05-31] MEDS: PANTOPRAZOLE 40 MG/10 ML VIAL IVP SCH ×3 (05:09→21:55)
[2018-05-31] MEDS: SODIUM CHLORIDE 0.9% 1,000 ML IV SCH ×3 (05:10→19:25)
[2018-05-31] MEDS: LEVOTHYROXINE 25 MCG TAB PO SCH (07:06)
[2018-05-31] MEDS: METOPROLOL TARTRATE 12.5 MG TAB PO SCH ×2 (08:13→21:55)
[2018-05-31 10:19] LABS: Basophils % (A) 0 %; Eosinophils # (A) 0.1 k/uL (0-0.7); Eosinophils % (A) 3 %; HCT 37.2 % (34.0-46.0); Hypochromasia Slight; Lymphocytes # (A) 0.9 k/uL (1.0-4.8); Lymphocytes % (A) 21 %; MCH 28.1 pg (25.0-35.0); MCHC 32.3 g/dL (31.0-37.0); MCV 87.1 fL (80.0-100.0); Mean Platelet Volume 7.1; Monocytes # (A) 0.2 k/uL (0-1.0); Monocytes % (A) 5 %; Neutrophils # (A) 3.1 k/uL (1.3-7.7); Neutrophils % (A) 71 %; Platelet Count 172 k/uL (150-450); RBC 4.27 m/uL (3.80-5.40); RDW 13.6 % (11.5-15.5); WBC 4.3 k/uL (3.8-10.6)
[2018-05-31 10:35] LABS: ALT 119 U/L (9-52); AST 61 U/L (14-36); Albumin 2.9 g/dL (3.5-5.0); Alkaline Phosphatase 85 U/L (38-126); Amylase 171 U/L (30-110); Anion Gap 5 mmol/L; Blood Urea Nitrogen 12 mg/dL (7-17); Carbon Dioxide 24 mmol/L (22-30); Chloride 113 mmol/L (98-107); Glucose 132 mg/dL (74-99); Lipase 587 U/L (23-300); Potassium 3.9 mmol/L (3.5-5.1); Sodium 142 mmol/L (137-145); Total Bilirubin 0.4 mg/dL (0.2-1.3); Total Protein 5.5 g/dL (6.3-8.2)
--- NOTE | 2018-05-31 12:45 | P.PN ---
Subjective Progress Note Date: 05/31/18 This a pleasant 67-year-old lady patient of Dr. Mcarthur. She has underlying history of hypertension, hypothyroidism, primary hyperparathyroidism secondary to secreting parathyroid adenoma, hyperlipidemia, CAD, with prior cardiac stents , in December 2016, admitted to the hospital secondary to abdominal pain and bloating, pressure in the mid center of the abdomen, starting at 1:00 in the morning. It is colicky in nature, radiating all over the abdomen and the back, patient does not have any significant right-sided abdominal pain to the right subcostal region, patient has no prior episode of pancreatitis in the past, patient does not drink alcohol except on holiday or location. Her last meal consisted of with history cheek and, buttered vegetables, potato chips, a glass of wine. No sick contacts., patient was admitted to the emergency room with a value of lipase in the 11,000 along with a imaging studies that shows slight hydrops of the gallbladder without any common bile duct obstruction, ultrasound of the abdomen showed mild prominent gallbladder with mild by dilatation, gallbladder wall 1 mm, distal common bile duct 7 mm, 2.4 cm lesion left lobe liver, nonspecific, CAT scan of the abdomen failed to reveal any pancreatic pseudocyst or abscess, liver lesion was more consistent of hemangioma liver function test shows normal alkaline Eulogio and slight elevation of AST and ALT, patient's admitted and was Nothing by mouth, except for meds bowel rest, IV fluid for hydration, we'll going to hold off starting at this time urinalysis shows urine WBC of 32, urine pH of 8.5, calcium level of 10.6 05/31: Repeat amylase 171 and lipase 587. PTH pending. Calcium 10.0. Patient states she is felling much better today. She is tolerativg clear liquid diet. Diet will be advanced to full liquids and plan for possible discharge home tomorrow. Review Of Systems: Constitutional: No fever, no chills, no night sweats. No weight change. No weakness, fatigue or lethargy. No daytime sleepiness. EENT: No headache. No blurred vision or double vision, no loss of vision. No loss of Hearing, no ringing in the ears, no dizziness. No nasal drainage or congestion. No epistaxis. No sore throat. Lungs: No shortness of breath, cough, no sputum production. No wheezing. Cardiovascular: No chest pain, no lower extremity edema. No palpitations. No paroxysmal nocturnal dyspnea. No orthopnea. No lightheadedness or dizziness. No syncopal episodes. Abdominal: No abdominal pain. No nausea, vomiting. No diarrhea. No constipation. No bloody or tarry stools.. No loss of appetite. Genitourinary: No dysuria, increased frequency, urgency. No urinary retention. Musculoskeletal: No myalgias. No muscle weakness, no gait dysfunction, no frequent falls. No back pain. No neck pain. Integumentary: No wounds, no lesions. No rash or pruritus. No unusual bruising. No change in hair or nails. Neurologic: No aphasia. No facial droop. No change in mentation. No head injury. No headache. No paralysis. No paresthesia. Psychiatric: No depression. No anxiety. No mood swings. Endocrine: No abnormal blood sugars. No weight change. No excessive sweating or thirst. Objective - Vital Signs Vital signs: Vital Signs Temp 98.1 F 05/31/18 11:50 Pulse 57 L 05/31/18 11:50 Resp 17 05/31/18 11:50 BP 101/56 05/31/18 11:50 Pulse Ox 96 05/31/18 11:50 Intake & Output 05/30/18 05/31/18 05/31/18 18:59 06:59 18:59 Intake Total 10 Output Total 1400 240 Balance -1390 -240 Intake: Oral 10 Output: Urine 1400 240 Other: Voiding Method Toilet Toilet # Voids 1 1 1 - Exam General appearance: cooperative, no acute distress, obese - EENT Eyes: anicteric sclerae, EOMI, PERRLA ENT: NA/AT, normal oropharynx - Neck Neck: normal ROM - Respiratory Respiratory: bilateral: CTA, negative: diminished, dullness - Cardiovascular Rhythm: regular Heart sounds: normal: S1 Abnormal Heart Sounds: no systolic murmur, no diastolic murmur, no rub, no S3 Gallop, no S4 Gallop, no click, no other - Gastrointestinal General gastrointestinal: soft Localized gastrointestinal: nontender, no guarding - Integumentary Integumentary: no calor, no cellulitis, no cyanotic, decreased turgor, no flushed, no jaundiced, normal, no normal turgor, no pale, no rash, no ulcer - Neurologic Neurologic: CNII-XII intact - Musculoskeletal Musculoskeletal: gait normal, strength equal bilaterally - Psychiatric Psychiatric: A&O x's 3, appropriate affect, intact judgment & insight - Labs CBC & Chem 7: 05/31/18 09:48 05/31/18 09:48 Labs: Abnormal Lab Results - Last 24 Hours (Table) 05/31/18 05/31/18 Range/Units 09:48 09:48 Lymphocytes # 0.9 L (1.0-4.8) k/uL Chloride 113 H (98-107) mmol/L Glucose 132 H (74-99) mg/dL AST 61 H (14-36) U/L ALT 119 H (9-52) U/L Total Protein 5.5 L (6.3-8.2) g/dL Albumin 2.9 L (3.5-5.0) g/dL Amylase 171 H (30-110) U/L Lipase 587 H (23-300) U/L Microbiology - Last 24 Hours (Table) 05/30/18 03:25 Urine Culture - Final Urine,Voided Assessment and Plan Plan: 1. Acute pancreatitis, possibly related to ingestion of alcohol, however statin cannot be ruled out as a culprit for the current pancreatitis, patient would be given IV hydration, and bowel rest. Clear liquid diet can be initiated once abdominal pain and lipase has declined further, no evidence of common bile duct obstruction at this time, alkaline phosphatase is normal, ultrasound of the abdomen shows normal common bile duct, however spontaneous passage of a common bile duct stone cannot be completely ruled out. However this is less likely. Advance diet to full liquids. 2. Hypercalcemia, known history of parathyroid adenoma she had parathyroid adenoma removal 4 years ago, elevation of calcium, this could be related to dehydration, against dietary source, PTH level to be obtained, vitamin D levels to be obtained 3. CAD with prior [place] December 2006, with 5 cardiac stents, patient will be off statins secondary to significant pancreatitis other home medications to be reassured except for aspirin and Plavix, this can be reassured once patient would be cleared for any surgical intervention, continue to monitor progress continue on metoprolol 25 mg twice a day 4. Mild hydrops of the gallbladder, negative for Johnson sign no obstructive jaundice noted 5. Elevation of liver function tests possibly related to Can patient has episodic use of alcohol however this is wondering 1 glass on a very sporadic basis 7. 2.4 lesion left liver lobe, suspicious of hemangioma, benign 6. Hypothyroidism on levothyroxine 25 mg daily, no levels obtained during the admission, continue to monitor as an outpatient 7. Chronic insomnia, on maintenance this is 25 mg at bedtime and melatonin 10 mg at bedtime 8. Pyuria, with generalized abdominal pain from acute pancreatitis however patient does not relate to dysuria, cultures to be done, patient was given one- time dose of Rocephin emergency room, we'll going to monitor and evaluate this further, Rocephin is not continued at this time GI prophylaxis DVT prophylaxis STEPAN calhoun Discharge plan: Home tomorrow Impression and plan of care have been directed as dictated by the signing physician. Alka Alexandra nurse practitioner acting as scribe for signing physician.
[2018-05-31 16:41] LABS: Vitamin D 25 Hydroxy 19.6 ng/mL (30.0-100.0)
[2018-05-31 17:43] LABS: Parathyroid Hormone Intact 223.1 pg/mL (14.0-72.0)
[2018-05-31] MEDS: hydrOXYzine PAMOATE 25 MG CAP PO SCH (21:55)
[2018-05-31] MEDS: MELATONIN 5 MG TABLET PO SCH (22:03)
[2018-06-01] MEDS: LEVOTHYROXINE 25 MCG TAB PO SCH (05:01)
[2018-06-01] MEDS: PANTOPRAZOLE 40 MG/10 ML VIAL IVP SCH ×2 (08:49→20:13)
[2018-06-01] MEDS: METOPROLOL TARTRATE 12.5 MG TAB PO SCH ×2 (08:49→20:14)
--- NOTE | 2018-06-01 15:26 | P.PN ---
Subjective Progress Note Date: 06/01/18 This a pleasant 67-year-old lady patient of Dr. Mcarthur. She has underlying history of hypertension, hypothyroidism, primary hyperparathyroidism secondary to secreting parathyroid adenoma, hyperlipidemia, CAD, with prior cardiac stents , in December 2016, admitted to the hospital secondary to abdominal pain and bloating, pressure in the mid center of the abdomen, starting at 1:00 in the morning. It is colicky in nature, radiating all over the abdomen and the back, patient does not have any significant right-sided abdominal pain to the right subcostal region, patient has no prior episode of pancreatitis in the past, patient does not drink alcohol except on holiday or location. Her last meal consisted of with history cheek and, buttered vegetables, potato chips, a glass of wine. No sick contacts., patient was admitted to the emergency room with a value of lipase in the 11,000 along with a imaging studies that shows slight hydrops of the gallbladder without any common bile duct obstruction, ultrasound of the abdomen showed mild prominent gallbladder with mild by dilatation, gallbladder wall 1 mm, distal common bile duct 7 mm, 2.4 cm lesion left lobe liver, nonspecific, CAT scan of the abdomen failed to reveal any pancreatic pseudocyst or abscess, liver lesion was more consistent of hemangioma liver function test shows normal alkaline Eulogio and slight elevation of AST and ALT, patient's admitted and was Nothing by mouth, except for meds bowel rest, IV fluid for hydration, we'll going to hold off starting at this time urinalysis shows urine WBC of 32, urine pH of 8.5, calcium level of 10.6 05/31: Repeat amylase 171 and lipase 587. PTH pending. Calcium 10.0. Patient states she is felling much better today. She is tolerativg clear liquid diet. Diet will be advanced to full liquids and plan for possible discharge home tomorrow. 06/01: Repeat lipase is 428. Abdominal pain is resolved. Plan to advance to low-fat diet. Patient is complaining of constipation for which senna will be added. Plan to repeat lab work in the morning. Anticipate discharge home tomorrow. Review Of Systems: Constitutional: No fever, no chills, no night sweats. No weight change. No weakness, fatigue or lethargy. No daytime sleepiness. EENT: No headache. No blurred vision or double vision, no loss of vision. No loss of Hearing, no ringing in the ears, no dizziness. No nasal drainage or congestion. No epistaxis. No sore throat. Lungs: No shortness of breath, cough, no sputum production. No wheezing. Cardiovascular: No chest pain, no lower extremity edema. No palpitations. No paroxysmal nocturnal dyspnea. No orthopnea. No lightheadedness or dizziness. No syncopal episodes. Abdominal: No abdominal pain. No nausea, vomiting. No diarrhea. Reports constipation. No bloody or tarry stools.. No loss of appetite. Genitourinary: No dysuria, increased frequency, urgency. No urinary retention. Musculoskeletal: No myalgias. No muscle weakness, no gait dysfunction, no frequent falls. No back pain. No neck pain. Integumentary: No wounds, no lesions. No rash or pruritus. No unusual bruising. No change in hair or nails. Neurologic: No aphasia. No facial droop. No change in mentation. No head injury. No headache. No paralysis. No paresthesia. Psychiatric: No depression. No anxiety. No mood swings. Endocrine: No abnormal blood sugars. No weight change. No excessive sweating or thirst. Objective - Vital Signs Vital signs: Vital Signs Temp 97.4 F L 06/01/18 11:57 Pulse 52 L 06/01/18 11:57 Resp 18 06/01/18 11:57 BP 131/66 06/01/18 11:57 Pulse Ox 96 06/01/18 11:57 Intake & Output 05/31/18 06/01/18 06/01/18 18:59 06:59 18:59 Intake Total 1500 160 Balance 1500 160 Weight 83.915 kg Intake: Intake, IV Titration 360 Amount Sodium Chloride 0.9% 1, 360 000 ml @ 200 mls/hr IV . Q5H [facility] Rx#:[id number] Oral 1140 160 Other: Voiding Method Toilet Toilet Toilet # Voids 1 1 - Exam General appearance: cooperative, no acute distress, obese, resting in chair - EENT Eyes: anicteric sclerae, EOMI, PERRLA ENT: NA/AT, normal oropharynx - Neck Neck: normal ROM - Respiratory Respiratory: bilateral: CTA, negative: diminished, dullness - Cardiovascular Rhythm: regular Heart sounds: normal: S1 Abnormal Heart Sounds: no systolic murmur, no diastolic murmur, no rub, no S3 Gallop, no S4 Gallop, no click, no other - Gastrointestinal General gastrointestinal: soft Localized gastrointestinal: nontender, no guarding - Integumentary Integumentary: no calor, no cellulitis, no cyanotic, decreased turgor, no flushed, no jaundiced, normal, no normal turgor, no pale, no rash, no ulcer - Neurologic Neurologic: CNII-XII intact - Musculoskeletal Musculoskeletal: gait normal, strength equal bilaterally - Psychiatric Psychiatric: A&O x's 3, appropriate affect, intact judgment & insight - Labs CBC & Chem 7: 05/31/18 09:48 05/31/18 09:48 Labs: Abnormal Lab Results - Last 24 Hours (Table) 05/31/18 06/01/18 Range/Units 09:48 07:21 Lipase 428 H (23-300) U/L Vitamin D 25-Hydroxy 19.6 L (30.0-100.0) ng/mL PTH Intact 223.1 H (14.0-72.0) pg/mL Microbiology - Last 24 Hours (Table) 05/30/18 03:25 Urine Culture - Final Urine,Voided Assessment and Plan Plan: 1. Acute pancreatitis, possibly related to ingestion of alcohol, however statin cannot be ruled out as a culprit for the current pancreatitis, patient would be given IV hydration, and bowel rest. Clear liquid diet can be initiated once abdominal pain and lipase has declined further, no evidence of common bile duct obstruction at this time, alkaline phosphatase is normal, ultrasound of the abdomen shows normal common bile duct, however spontaneous passage of a common bile duct stone cannot be completely ruled out. However this is less likely. Advance diet to low-fat. 2. Hypercalcemia, known history of parathyroid adenoma she had parathyroid adenoma removal 4 years ago, elevation of calcium, this could be related to dehydration, against dietary source, PTH level to be obtained, vitamin D levels to be obtained 3. CAD with prior [place] December 2006, with 5 cardiac stents, patient will be off statins secondary to significant pancreatitis other home medications to be reassured except for aspirin and Plavix, this can be reassured once patient would be cleared for any surgical intervention, continue to monitor progress continue on metoprolol 25 mg twice a day 4. Mild hydrops of the gallbladder, negative for Johnson sign no obstructive jaundice noted 5. Elevation of liver function tests possibly related to Can patient has episodic use of alcohol however this is wondering 1 glass on a very sporadic basis 7. 2.4 lesion left liver lobe, suspicious of hemangioma, benign 6. Hypothyroidism on levothyroxine 25 mg daily, no levels obtained during the admission, continue to monitor as an outpatient 7. Chronic insomnia, on maintenance this is 25 mg at bedtime and melatonin 10 mg at bedtime 8. Pyuria, with generalized abdominal pain from acute pancreatitis however patient does not relate to dysuria, cultures to be done, patient was given one- time dose of Rocephin emergency room, we'll going to monitor and evaluate this further, Rocephin is not continued at this time GI prophylaxis DVT prophylaxis STEPAN calhoun Discharge plan: Home tomorrow Impression and plan of care have been directed as dictated by the signing physician. Alka Alexandra nurse practitioner acting as scribe for signing physician.
[2018-06-01] MEDS: SENNOSIDES 8.6 MG TAB PO SCH (20:14)
[2018-06-01] MEDS: MELATONIN 5 MG TABLET PO SCH (22:27)
[2018-06-01] MEDS: hydrOXYzine PAMOATE 25 MG CAP PO SCH (22:27)
[2018-06-02] MEDS: LEVOTHYROXINE 25 MCG TAB PO SCH (05:38)
[2018-06-02 07:56] LABS: HCT 39.6 % (34.0-46.0); HGB 12.7 gm/dL (11.4-16.0); MCH 27.2 pg (25.0-35.0); MCV 85.1 fL (80.0-100.0); Platelet Count 192 k/uL (150-450); RBC 4.66 m/uL (3.80-5.40); RDW 13.5 % (11.5-15.5); WBC 4.3 k/uL (3.8-10.6)
[2018-06-02 08:15] LABS: ALT 78 U/L (9-52); AST 30 U/L (14-36); Albumin 3.3 g/dL (3.5-5.0); Alkaline Phosphatase 96 U/L (38-126); Anion Gap 4 mmol/L; Blood Urea Nitrogen 12 mg/dL (7-17); Calcium 10.6 mg/dL (8.4-10.2); Carbon Dioxide 27 mmol/L (22-30); Chloride 112 mmol/L (98-107); Glucose 94 mg/dL (74-99); Lipase 483 U/L (23-300); Potassium 4.5 mmol/L (3.5-5.1); Sodium 143 mmol/L (137-145); Total Bilirubin 0.4 mg/dL (0.2-1.3); Total Protein 6.1 g/dL (6.3-8.2)
[2018-06-02] MEDS: SENNOSIDES 8.6 MG TAB PO SCH (10:26)
[2018-06-02] MEDS: METOPROLOL TARTRATE 12.5 MG TAB PO SCH (10:26)
[2018-06-02] MEDS: PANTOPRAZOLE 40 MG/10 ML VIAL IVP SCH (10:26)
[2018-06-02 11:55] VITALS: BP 120/77; PULSE 66; RESP 18; TEMP 98.3
--- NOTE | 2018-06-02 14:18 | P.DS ---
Providers Date of admission: 05/30/18 04:17 Expected date of discharge: 06/02/18 Attending physician: Cher Schaffer Primary care physician: Otf Edwards [facility] Course: This a pleasant 67-year-old lady patient of Dr. Edwards. She has underlying history of hypertension, hypothyroidism, primary hyperparathyroidism secondary to secreting parathyroid adenoma, hyperlipidemia, CAD, with prior cardiac stents , in December 2016, admitted to the hospital secondary to abdominal pain and bloating, pressure in the mid center of the abdomen, starting at 1:00 in the morning. It is colicky in nature, radiating all over the abdomen and the back, patient does not have any significant right-sided abdominal pain to the right subcostal region, patient has no prior episode of pancreatitis in the past, patient does not drink alcohol except on holiday or location. Her last meal consisted of with history cheek and, buttered vegetables, potato chips, a glass of wine. No sick contacts., patient was admitted to the emergency room with a value of lipase in the 11,000 along with a imaging studies that shows slight hydrops of the gallbladder without any common bile duct obstruction, ultrasound of the abdomen showed mild prominent gallbladder with mild by dilatation, gallbladder wall 1 mm, distal common bile duct 7 mm, 2.4 cm lesion left lobe liver, nonspecific, CAT scan of the abdomen failed to reveal any pancreatic pseudocyst or abscess, liver lesion was more consistent of hemangioma liver function test shows normal alkaline Hiller and slight elevation of AST and ALT, patient's admitted and was Nothing by mouth, except for meds bowel rest, IV fluid for hydration, we'll going to hold off starting at this time urinalysis shows urine WBC of 32, urine pH of 8.5, calcium level of 10.6 05/31: Repeat amylase 171 and lipase 587. PTH pending. Calcium 10.0. Patient states she is felling much better today. She is tolerativg clear liquid diet. Diet will be advanced to full liquids and plan for possible discharge home tomorrow. 06/01: Repeat lipase is 428. Abdominal pain is resolved. Plan to advance to low-fat diet. Patient is complaining of constipation for which senna will be added. Plan to repeat lab work in the morning. Anticipate discharge home tomorrow. 06/02: Urine culture has been finalized with genital gladys. Parathyroid hormone intact 223.1. Repeat lipase 483. Patient denies having any abdominal pain. No nausea or vomiting. Patient encouraged to follow low-fat diet at home. Patient will be discharged home today in stable condition. Patient is to have follow-up lab work within the week and see Dr. Mcarthur. Lipitor will remain on hold. Discharge diagnoses: 1. Acute pancreatitis, possibly related to ingestion of alcohol, however statin cannot be ruled out as a culprit 2. Hypercalcemia, known history of parathyroid adenoma removal 4 years ago, elevation of calcium could be related to dehydration 3. CAD with prior [place] December 2006, with 5 cardiac stents 4. Mild hydrops of the gallbladder 5. Elevation of liver function tests possibly related to Can 7. 2.4 lesion left liver lobe, suspicious of hemangioma, benign 6. Hypothyroidism 7. Chronic insomnia 8. Pyuria without urinary tract infection Discharge plan: Home Impression and plan of care have been directed as dictated by the signing physician. Alka Alexandra nurse practitioner acting as scribe for signing physician. Patient Condition at Discharge: Good Plan - Discharge Summary Discharge Rx Participant: No New Discharge Prescriptions: New Pantoprazole Sodium [Protonix] 40 mg PO DAILY #14 tablet.dr Bowman Cholecalciferol (Vitamin D3) [Vitamin D3] 2,000 unit PO DAILY hydrOXYzine PAMOATE [Vistaril] 25 mg PO HS Levothyroxine Sodium [Synthroid] 25 mcg PO DAILY Melatonin 10 mg PO HS Loratadine 10 mg PO DAILY Multivitamins, Thera [Multivitamin (formulary)] 1 tab PO DAILY Aspirin 81 mg PO DAILY Clopidogrel [Plavix] 75 mg PO DAILY #90 tab Nitroglycerin Sl Tabs [Nitrostat] 0.4 mg SUBLINGUAL Q5M PRN #25 tab PRN Reason: Chest Pain Metoprolol Tartrate 12.5 mg PO BID Atorvastatin [Lipitor] 80 mg PO HS #90 tab Discharge Medication List Cholecalciferol (Vitamin D3) [Vitamin D3] 2,000 unit PO DAILY 12/23/16 [History] Levothyroxine Sodium [Synthroid] 25 mcg PO DAILY 12/23/16 [History] Loratadine 10 mg PO DAILY 12/23/16 [History] Melatonin 10 mg PO HS 12/23/16 [History] Multivitamins, Thera [Multivitamin (formulary)] 1 tab PO DAILY 12/23/16 [History ] hydrOXYzine PAMOATE [Vistaril] 25 mg PO HS 12/23/16 [History] Aspirin 81 mg PO DAILY 12/27/16 [Rx] Clopidogrel [Plavix] 75 mg PO DAILY #90 tab 12/27/16 [Rx] Nitroglycerin Sl Tabs [Nitrostat] 0.4 mg SUBLINGUAL Q5M PRN #25 tab 12/27/16 [Rx ] Metoprolol Tartrate 12.5 mg PO BID 05/30/18 [History] Atorvastatin [Lipitor] 80 mg PO HS #90 tab 06/02/18 [Rx] Pantoprazole Sodium [Protonix] 40 mg PO DAILY #14 tablet. 06/02/18 [Rx] Follow up Appointment(s)/Referral(s): Otf Edwards MD [Primary Care Provider] - 06/18/18 10:15 am Ambulatory/Diagnostic Orders: Comprehensive Metabolic Panel [LAB.AMB] Location: None Selected Lipase [LAB.AMB] Location: None Selected Patient Instructions/Handouts: Pantoprazole (By mouth), Pancreatitis (DC), Comprehensive Metabolic Panel (GEN) Activity/Diet/Wound Care/Special Instructions: Hold Lipitor for 2 weeks until after next blood draw please.
== END 2018-06-02 14:30 | disposition home or self-care (01) | DRG 439 ==
LOC: EC 02:07 → 6PED 04:17 → 3NMEDONC 05-31 18:00
PROVIDERS: ADMIT Family Medicine; ATTEND Family Medicine
DX: K85.90 Acute pancreatitis without necrosis or infection, unspecified (principal); K82.1 Hydrops of gallbladder; N25.81 Secondary hyperparathyroidism of renal origin; E03.9 Hypothyroidism, unspecified; E78.5 Hyperlipidemia, unspecified; F17.210 Nicotine dependence, cigarettes, uncomplicated; F51.04 Psychophysiologic insomnia; I10 Essential (primary) hypertension; I25.10 Atherosclerotic heart disease of native coronary artery without angina pectoris; I25.2 Old myocardial infarction; K59.00 Constipation, unspecified; K80.50 Calculus of bile duct without cholangitis or cholecystitis without obstruction; Z79.02 Long term (current) use of antithrombotics/antiplatelets; Z79.82 Long term (current) use of aspirin; Z79.890 Hormone replacement therapy; Z82.49 Family history of ischemic heart disease and other diseases of the circulatory system; Z83.3 Family history of diabetes mellitus; Z90.710 Acquired absence of both cervix and uterus; Z95.5 Presence of coronary angioplasty implant and graft; D18.03 Hemangioma of intra-abdominal structures; K75.81 Nonalcoholic steatohepatitis (NASH); Z88.1 Allergy status to other antibiotic agents; Z88.0 Allergy status to penicillin; E83.52 Hypercalcemia
CPT/HCPCS: 36415; 74177; 76705; 80053; 81001; 82150; 82306; 82550; 82553; 83605; 83690; 83970; 84484; 85025; 85027; 85610; 85730; 87086; 93005; 96361; 96374; 96375; 99285

== ENCOUNTER → 2018-06-10 | Outpatient (CLI) | payer MEDICARE ==
[2018-06-10 19:29] LABS: Albumin 4.4 g/dL (3.80-4.90); Albumin/Globulin Ratio 1.91 (1.20-2.10); Anion Gap 5.3 mmol/L (4.00-12.00); Carbon Dioxide 27.7 mmol/L (21.6-31.8); Globulin 2.3 g/dL (1.6-3.3); Total Bilirubin 0.3 mg/dL (0.2-1.2); Total Protein 6.7 g/dL (6.2-8.2)
== END | disposition home or self-care (01) ==
LOC: LABWHC1 14:18
PROVIDERS: ATTEND Nurse Practitioner Family
DX: K85.90 Acute pancreatitis without necrosis or infection, unspecified (principal)
CPT/HCPCS: 36415; 80053; 83690

== ENCOUNTER → 2018-07-02 | Outpatient (CLI) | payer MEDICARE | END | disposition home or self-care (01) | LOC: LABWHC1 07:17 | PROVIDERS: ATTEND Family Medicine | DX: K85.90 Acute pancreatitis without necrosis or infection, unspecified (principal) | CPT/HCPCS: 36415; 82150; 83690; 84478 ==

== ENCOUNTER → 2019-04-05 | Outpatient (CLI) | payer MEDICARE ==
[2019-04-05 07:56] LABS: Basophils % (A) 1 %; Eosinophils # (A) 0.2 k/uL (0-0.7); Eosinophils % (A) 4 %; HCT 45.6 % (34.0-46.0); HGB 14.6 gm/dL (11.4-16.0); Lymphocytes # (A) 0.9 k/uL (1.0-4.8); Lymphocytes % (A) 20 %; MCHC 31.9 g/dL (31.0-37.0); MCV 87.6 fL (80.0-100.0); Mean Platelet Volume 6.1; Monocytes # (A) 0.3 k/uL (0-1.0); Monocytes % (A) 7 %; Neutrophils # (A) 3.1 k/uL (1.3-7.7); Neutrophils % (A) 66 %; Platelet Count 243 k/uL (150-450); RBC 5.21 m/uL (3.80-5.40); RDW 12.7 % (11.5-15.5); WBC 4.7 k/uL (3.8-10.6)
[2019-04-05 12:25] LABS: African American GFR (CKD) 88.4 (60.0-200.0); Albumin 4.5 g/dL (3.80-4.90); Albumin/Globulin Ratio 2.05 (1.60-3.17); Anion Gap 11.5 mmol/L (4.00-12.00); BUN/Creat Ratio 23.75 Ratio (12.00-20.00); Calcium 10.9 mg/dL (8.7-10.3); Carbon Dioxide 24.5 mmol/L (21.6-31.8); Chol/HDL Ratio 2.75; Globulin 2.2 g/dL (1.6-3.3); LDL Cholesterol,Calculated 83.8 mg/dL (0.0-131.0); Potassium 4.7 mmol/L (3.5-5.5); Total Bilirubin 0.4 mg/dL (0.2-1.2); Total Protein 6.7 g/dL (6.2-8.2); VLDL Calculation 21.2 mg/dL (5.00-40.00)
== END | disposition home or self-care (01) ==
LOC: LABWHC1 07:26
PROVIDERS: ATTEND Family Medicine
DX: I10 Essential (primary) hypertension (principal); E03.9 Hypothyroidism, unspecified; I25.10 Atherosclerotic heart disease of native coronary artery without angina pectoris; E55.9 Vitamin D deficiency, unspecified
CPT/HCPCS: 36415; 80053; 80061; 82306; 84443; 85025

== ENCOUNTER → 2019-11-15 | Outpatient (CLI) | payer MEDICARE, BC ==
--- NOTE | 2019-11-15 14:53 | US ---
EXAMINATION TYPE: US thyroid st tissue head/neck DATE OF EXAM: 11/15/2019 COMPARISON: NONE CLINICAL HISTORY: Right thyroid nodule E04.1. GLAND SIZE: Right Lobe: 3.9 x 1.3 x 1.2 cm Overall Parenchyma: homogenous Left Lobe: 3.0 x 0.9 x 0.8 cm Overall Parenchyma: homogeneous Isthmus Thickness: 0.3 cm NODULES RIGHT: # of nodules measured on right: 1 1. 0.4 X 0.4 x 0.4 cm hypoechoic solid nodule at the mid pole with well-defined margins; . This no dule is wider than tall and shows intranodular vascularity. Prior size: no prior LEFT: # of nodules measured on left: 0 ISTHMUS: # of nodules measured in the isthmus: 0 Bilateral neck scanned, no evidence of lymphadenopathy. IMPRESSION: Single subcentimeter right thyroid nodule is too small for fine-needle aspiration at this time. Follow-up ultrasound in 12 months could be considered to establish stability.
== END | disposition home or self-care (01) ==
LOC: RADUSWWP 13:35
PROVIDERS: ATTEND Surgery
DX: E04.1 Nontoxic single thyroid nodule (principal)
CPT/HCPCS: 76536

== ENCOUNTER → 2019-12-20 | Outpatient (CLI) | payer MEDICARE, BC ==
[2019-12-20 11:06] LABS: Basophils % (A) 0 %; Eosinophils # (A) 0.1 k/uL (0-0.7); Eosinophils % (A) 2 %; HCT 47.4 % (34.0-46.0); Hypochromasia Moderate; Lymphocytes # (A) 1.2 k/uL (1.0-4.8); Lymphocytes % (A) 21 %; MCH 28.8 pg (25.0-35.0); MCHC 31.8 g/dL (31.0-37.0); MCV 90.8 fL (80.0-100.0); Mean Platelet Volume 7.9; Monocytes # (A) 0.3 k/uL (0-1.0); Monocytes % (A) 5 %; Neutrophils # (A) 3.8 k/uL (1.3-7.7); Neutrophils % (A) 69 %; Platelet Count 241 k/uL (150-450); RBC 5.22 m/uL (3.80-5.40); WBC 5.6 k/uL (3.8-10.6)
[2019-12-20 17:00] LABS: African American GFR (CKD) 87.8 (60.0-200.0); Albumin 4.5 g/dL (3.80-4.90); Albumin/Globulin Ratio 1.96 (1.60-3.17); Anion Gap 7.6 mmol/L (4.00-12.00); BUN/Creat Ratio 22.5 Ratio (12.00-20.00); Calcium 11.2 mg/dL (8.7-10.3); Carbon Dioxide 23.4 mmol/L (21.6-31.8); Chol/HDL Ratio 2.42; Globulin 2.3 g/dL (1.6-3.3); LDL Cholesterol,Calculated 73.6 mg/dL (0.0-131.0); Non-African American GFR(CKD) 75.8 (60.0-200.0); Potassium 5.6 mmol/L (3.5-5.5); Total Bilirubin 0.1 mg/dL (0.2-1.2); Total Protein 6.8 g/dL (6.2-8.2); VLDL Calculation 28.4 mg/dL (5.00-40.00)
== END | disposition home or self-care (01) ==
LOC: LABWHC1 09:05
PROVIDERS: ATTEND Family Medicine
DX: I10 Essential (primary) hypertension (principal); E03.9 Hypothyroidism, unspecified; E55.9 Vitamin D deficiency, unspecified; I25.119 Atherosclerotic heart disease of native coronary artery with unspecified angina pectoris
CPT/HCPCS: 36415; 80053; 80061; 82306; 84443; 85025

== ENCOUNTER → 2020-01-04 | Outpatient (CLI) | payer MEDICARE, BC ==
--- NOTE | 2020-01-04 09:28 | BD ---
EXAMINATION TYPE: Axial Bone Density DATE OF EXAM: 01/04/2020 COMPARISON: 04.07.2001 CLINICAL HISTORY: 69 YR OLD FEMALE......ICD-10 CODE: Z78.0 POST MENOPAUSAL Height: 62.3 Weight: 207 FRAX RISK QUESTIONS: History of Fracture in Adulthood: YES 1Current Tobacco Use: QUIT 2011 RISK FACTORS HISTORY OF: HX OF RT FX TO GR, AND 5TH TOE Postmenopausal woman: YES, AT AGE 53 Take estrogen and/or progesterone medications: IN PAST ONLY FOR ABOUT 14 YRS Lost more than 2 inches in height since high school: YES Hyperparathyroidism: YES, PARTIALLY REMOVED Adrenal Insufficiency: NO MEDICATIONS: Thyroid Medications: SYNTHROID, FOR ABOUT 3-4 YRS Additional Medications: VIT D, BP MEDS, STATIN FOR CHOLESTEROL, Additional History: OSTEOARTHRITIS, HYPERCALCEMIA, HYPERTENSION, CHOLESTEROL EXAM MEASUREMENTS: Bone mineral densitometry was performed using the [employer] System. Bone mineral density as measured about the Lumbar spine is: ----- L1-L4(G/cm2): 1.238 T Score Values are as follows: ----- L1: 0.3 ----- L2: 0.4 ----- L3: 0.1 ----- L4: 1.0 ----- L1-L4: 0.5 Bone mineral density has: Decreased -1.7% since study of: 04.07.2001 Bone mineral density about the R hip (g/cm2): 0.898 Bone mineral density about the L hip (g/cm2): 0.967 T Score values are as follows: -----R Neck: -1.5 -----L Neck: -1.1 -----R Total: -0.9 -----L Total: -0.3 Bone mineral density has: Decreased -7.8% since study of: 04.07.2001 FRAX%s: THERE IS A 14.1% CHANCE FOR A MAJOR OSTEOPOROTIC FX AND A 1.6% FOR HIP.......PROBABILITY FO R FX IN 10 YRS TIME IMPRESSION: Osteopenia (T Score between -2.5 and -1) femoral neck level in both hips. There is slightly increased risk of fracture and the patient may be considered for treatment. Re-Screen 2-5 years. NOTE: T-SCORE=SD OF THE YOUNG ADULT MEAN.
--- NOTE | 2020-01-04 11:00 | MM ---
Reason for exam: screening (asymptomatic). Last mammogram was performed 3 years and 7 months ago. History: Patient is postmenopausal. Benign core biopsy of the left breast, 1989. Took hormonal contraceptives for 14 years. Physical Findings: A clinical breast exam by your physician is recommended on an annual basis and results should be correlated with mammographic findings. MG 3D Screening Mammo W/Cad Bilateral CC and MLO view(s) were taken. Prior study comparison: June 03, 2016, mammogram, performed at [facility]. April 03, 2015, mammogram, performed at [facility]. March 22, 2014, mammogram, performed at [facility]. July 12, 2013, bilateral digital screening mammo w/CAD. April 01, 2012, [facility] DIGITAL RIGHT MAMMOGRAM w/CAD. There are scattered fibroglandular densities. There is chronic nodularity bilaterally. There is no discrete abnormality. ASSESSMENT: Negative, BI-RAD 1 RECOMMENDATION: Routine screening mammogram of both breasts in 1 year.
== END | disposition home or self-care (01) ==
LOC: RADMAMWWP 07:31
PROVIDERS: ATTEND Family Medicine
DX: Z12.31 Encounter for screening mammogram for malignant neoplasm of breast (principal); M85.89 Other specified disorders of bone density and structure, multiple sites; Z78.0 Asymptomatic menopausal state
CPT/HCPCS: 77063; 77067; 77080

== ENCOUNTER → 2020-05-11 | Outpatient (CLI) | payer MEDICARE, BC ==
[2020-05-11 10:42] LABS: Basophils % (A) 0 %; Eosinophils # (A) 0.1 k/uL (0-0.7); Eosinophils % (A) 2 %; HCT 45.2 % (34.0-46.0); HGB 14.8 gm/dL (11.4-16.0); Lymphocytes # (A) 1.2 k/uL (1.0-4.8); Lymphocytes % (A) 21 %; MCH 28.6 pg (25.0-35.0); MCHC 32.7 g/dL (31.0-37.0); MCV 87.4 fL (80.0-100.0); Mean Platelet Volume 7.2; Monocytes # (A) 0.3 k/uL (0-1.0); Monocytes % (A) 6 %; Neutrophils # (A) 3.8 k/uL (1.3-7.7); Neutrophils % (A) 70 %; Platelet Count 224 k/uL (150-450); RBC 5.18 m/uL (3.80-5.40); RDW 13.1 % (11.5-15.5); WBC 5.5 k/uL (3.8-10.6)
[2020-05-11 11:22] LABS: Appearance,Urine Clear (Clear); Bacteria,Urine Rare /hpf; Bilirubin,Urine Negative (Negative); Blood,Urine Negative (Negative); Color,Urine Yellow; Glucose,Urine (UA) Negative (Negative); Ketones,Urine Negative (Negative); Leukocyte Esterase,Urine Small (Negative); Mucus,Urine Rare /hpf; Nitrite,Urine Negative (Negative); PH, Urine 5.5 (5.0-8.0); Protein,Urine Negative (Negative); Specific Gravity,Urine 1.032 (1.001-1.035); Squamous Epithelial Cell,Urine 2 /hpf (0-4); Urobilinogen,Urine <2.0 mg/dL (<2.0); WBC,Urine 8 /hpf (0-5)
[2020-05-11 12:07] LABS: Creatinine,Urine Random 156.2 mg/dL; Protein/Creatinine Ratio,Urine 0.058
[2020-05-11 14:31] LABS: Ferritin 63.3 ng/mL (10.0-291.0)
[2020-05-11 16:02] LABS: % Iron Saturation 17.17 (12.00-45.00); African American GFR (CKD) 87.8 (60.0-200.0); Albumin 4.4 g/dL (3.80-4.90); Anion Gap 6.8 mmol/L (4.00-12.00); Calcium 11.4 mg/dL (8.7-10.3); Carbon Dioxide 27.2 mmol/L (21.6-31.8); Non-African American GFR(CKD) 75.8 (60.0-200.0); Uric Acid 6.7 mg/dL (2.9-7.7)
== END | disposition home or self-care (01) ==
LOC: LABWHC1 09:39
PROVIDERS: ATTEND Internal Medicine Nephrology
DX: E83.52 Hypercalcemia (principal); R82.81 Pyuria
CPT/HCPCS: 36415; 80048; 81001; 82040; 82164; 82306; 82570; 82728; 83540; 83550; 83735; 83970; 84100; 84156; 84550; 85025; 86335

== ENCOUNTER 2020-05-23 08:04 | Day surgery (SDC) | payer MEDICARE, BC ==
[~2020-05-23 08:04] MED LIST changes: +ALPRAZolam 0.25 MG TAB PO PRN; +ALPRAZolam 0.5 MG TAB PO PRN; +ASPIRIN 325 MG TAB PO ONE; +ATORVASTATIN 80 MG TAB PO ONE; -MIDAZOLAM 2 MG/2 ML VIAL IV ONE; +NITROGLYCERIN SL TABS 0.4 MG TAB SUBLINGUAL PRN; +SODIUM CHLORIDE 0.9% 1,000 ML in EMPTY BAG 1 BAG IV ONE
[2020-05-23] MEDS ORDERED: SODIUM CHLORIDE 0.9% 1,000 ML IV ONE (08:14)
[2020-05-23 08:48] VITALS: RESP 16
[2020-05-23] MEDS ORDERED: LIDOCAINE 1% INJ 10MG/ML (20 ML MDV) ONE (10:09)
[2020-05-23] MEDS ORDERED: MIDAZOLAM 2 MG/2 ML VIAL IV ONE (10:25)
[2020-05-23] MEDS ORDERED: LIDOCAINE 1% INJ 10MG/ML (20 ML MDV) SQ ONE (10:29)
[2020-05-23] MEDS ORDERED: NITROGLYCERIN SL TABS 0.4 MG TAB SUBLINGUAL ONE ×2 (10:38→10:39)
[2020-05-23] MEDS: NITROGLYCERIN 1000MCG/10ML SYRINGE INTRACORON ONE ×3 (10:41→11:08)
[2020-05-23] MEDS ORDERED: BIVALIRUDIN 250 MG in SODIUM CHLORIDE 0.9% 50 ML IV ONE (10:50)
[2020-05-23] MEDS ORDERED: BIVALIRUDIN BOLUS 250 MG/50 ML IV ONE (10:50)
[2020-05-23] MEDS ORDERED: IOPAMIDOL-370 100ML BTL INJ ONE ×2 (11:02→11:12)
[2020-05-23] MEDS ORDERED: CLOPIDOGREL 75 MG TAB ONE (11:05)
[2020-05-23] MEDS ORDERED: CLOPIDOGREL 75 MG TAB PO ONE (11:08)
[2020-05-23] MEDS ORDERED: ATROPINE SULFATE 0.1 MG/ML 10ML SYRINGE IV PRN (11:24)
[2020-05-23] MEDS ORDERED: RX INFO: IV CONTRAST WAS GIVEN 1 EACH MISC MISCELLANE PRN (11:24)
[2020-05-23] MEDS ORDERED: MAG HYDROX/AL HYDROX/SIMETH 30 ML CUP PO PRN (11:24)
[2020-05-23] MEDS ORDERED: ZOLPIDEM 5 MG TAB PO PRN (11:24)
[2020-05-23 12:48] VITALS: BMI 36.8
[2020-05-23] MEDS: SODIUM CHLORIDE 0.9% 1,000 ML IV SCH ×2 (14:32→17:21)
[2020-05-23] MEDS: ACETAMINOPHEN TAB 325 MG TAB PO PRN ×2 (15:04→21:56)
--- NOTE | 2020-05-23 15:35 | CC ---
CARDIAC CATHETERIZATION REPORT DATE OF SERVICE: 05/23/2020 PROCEDURE: 1. Left heart catheterization and coronary angiography. 2. Percutaneous transluminal coronary angioplasty and stenting of proximal left anterior descending coronary artery with two drug-eluting stents. PERFORMED BY: Dr. Samira Heard. Moderate conscious sedation time was 46 minutes. Patient was administered Versed. Oxygen saturation, hemodynamics and EKG were monitored closely. CLINICAL INFORMATION: Mrs. Ragini Garber is a 69-year-old lady with a known history of inferior RI. In December of 2016 she presented with acute inferior RI, underwent stenting of a circumflex lesion, very complex, with bifurcation and stenting. About 3 days later I performed stenting of RCA, which was a staged intervention. LAD had a moderate disease, was doing fairly well. Lately she has been having symptoms of chest tightness and pressure. She has hypertension and hyperlipidemia, and a recent stress test revealed an ejection fraction of 50% with a reversible defect in the lateral wall and also in the inferior wall with some fixed component. Because of symptoms as well as abnormal stress test, I recommended coronary angiography with concern that she may have progression of CAD. PROCEDURE NOTE: Under local anesthesia and strict aseptic precautions, a 6-Slovenian introducer was placed in the right femoral artery. Using standard Merary catheters, I performed coronary angiography and noted that she had a significant lesion in the proximal LAD. The previously stented circumflex and RCA were patent without significant disease. I proceeded with PCI of LAD in the same setting. I checked LV pressures with the same right Merary catheter but did not do an LV gram. Following the procedure I used an Angio-Seal device to secure hemostasis and she was sent to the room in a stable condition. Results were discussed with the patient as well as her sister. CARDIAC CATHETERIZATION FINDINGS: Left ventricular end-diastolic pressure was about 15 mmHg without any gradient across the aortic valve. CORONARY ANGIOGRAPHY FINDINGS: RIGHT CORONARY ARTERY: This artery is a dominant vessel that was stented in the proximal and distal portions. Both stents are widely patent. There is no significant disease and there is good flow in the RCA. No significant disease; only minor irregularities noted. Both stented segments are widely patent, and this is a dominant vessel. LEFT MAIN CORONARY ARTERY: Short patent vessel, free of significant disease. Bifurcates into LAD and circumflex. LEFT ANTERIOR DESCENDING CORONARY ARTERY: This vessel in the proximal portion has an area of moderate disease. There is a focal 70% to 80% narrowing, and beyond that there is about a 50% narrowing, and it is a fairly long area of disease in the proximal segment, and then diagonal and septal branches come off which are free of significant disease. Distally LAD has another 40% narrowing as well. LAD therefore represents progression of disease in the proximal segment of about 50% to 70% which is progression of disease compared to the previous angiogram from 2017. LEFT POSTERIOR CIRCUMFLEX CORONARY ARTERY: Nondominant vessel. Stented segment is widely patent in the proximal portion, and also the stent was extending into the obtuse marginal, which is widely patent. The groove branch was also stented, a bifurcation stent, and that is also patent, but in the mid portion of the groove branch there is an eccentric area of about 40% narrowing. Flow is excellent. Stented segments are widely patent. LV-gram was not performed. FINAL IMPRESSION: This patient has a widely patent RCA at the two sites, proximal and distal of stented areas in 2017. The circumflex that was stented is widely patent as well as the obtuse marginal. The groove branch that was stented is patent, but beyond it there is about a 40% narrowing. LAD has progression of disease with a 70% proximal lesion, eccentric, calcified. Filling pressures are acceptable. No gradient across the aortic valve. RECOMMENDATIONS: I recommended PCI of LAD and I performed it in the same setting. PCI PROCEDURE DETAILS: I used a JL3.5 guide catheter to cannulate the left coronary artery and a run-through wire to cross the lesion. Wire was kept distally. A 2.5 caliber 8 mm Xience stent was used to pre-dilate the lesion. I initially deployed a 3.25 caliber 15 mm long Xience stent with excellent result. At the distal end of the stent I noted that there was still an area of narrowing, and this was addressed with an 8 mm long 3.25 caliber Xience stent that was telescoped into it distally. Excellent angiographic result without complication was achieved. The sheath was taken out and Angio-Seal device used to secure hemostasis. The patient received Angiomax bolus and infusion. She also received an additional 300 mg of Plavix, and she was already on aspirin and Plavix. Results were discussed with the patient and family, and I expect she will be discharged home tomorrow if she remains stable. MMODL / IJN: [id number] /
[2020-05-23] MEDS ORDERED: ATORVASTATIN 10 MG TAB PO SCH (21:00)
[2020-05-23] MEDS ORDERED: METOPROLOL TARTRATE 12.5 MG TAB PO SCH (21:00)
[2020-05-24] MEDS ORDERED: LEVOTHYROXINE 25 MCG TAB PO SCH (06:30)
[2020-05-24 08:10] LABS: Basophils % (A) 0 %; Eosinophils # (A) 0.1 k/uL (0-0.7); Eosinophils % (A) 2 %; HCT 42.3 % (34.0-46.0); HGB 14.1 gm/dL (11.4-16.0); Lymphocytes % (A) 23 %; MCH 28.9 pg (25.0-35.0); MCHC 33.4 g/dL (31.0-37.0); MCV 86.6 fL (80.0-100.0); Mean Platelet Volume 7.2; Monocytes # (A) 0.2 k/uL (0-1.0); Monocytes % (A) 4 %; Neutrophils # (A) 2.9 k/uL (1.3-7.7); Neutrophils % (A) 69 %; Platelet Count 195 k/uL (150-450); RBC 4.89 m/uL (3.80-5.40); WBC 4.2 k/uL (3.8-10.6)
[2020-05-24 08:25] LABS: African American GFR (CKD) >90 (>60 ml/min/1.73 sqM); Anion Gap 3 mmol/L; Blood Urea Nitrogen 11 mg/dL (7-17); Calcium 10.5 mg/dL (8.4-10.2); Carbon Dioxide 25 mmol/L (22-30); Chloride 114 mmol/L (98-107); Glucose 96 mg/dL (74-99); Non-African American GFR(CKD) >90 (>60 ml/min/1.73 sqM); Potassium 4.4 mmol/L (3.5-5.1); Sodium 142 mmol/L (137-145)
[2020-05-24] MEDS: ACETAMINOPHEN TAB 325 MG TAB PO PRN (08:43)
[2020-05-24] MEDS ORDERED: METOPROLOL TARTRATE 25 MG TAB PO SCH (09:00)
[2020-05-24] MEDS ORDERED: ASPIRIN 81 MG PO SCH (09:00)
[2020-05-24] MEDS ORDERED: CLOPIDOGREL 75 MG TAB PO SCH (09:00)
[2020-05-24 09:32] VITALS: BP 140/60; PULSE 74; TEMP 98.6
--- NOTE | 2020-05-24 11:02 | DS ---
DISCHARGE SUMMARY DATE OF ADMISSION: 05/23/2020. DATE OF DISCHARGE: 05/24/2020. DIAGNOSES: Unstable angina, hypertension and hyperlipidemia. CLINICAL INFORMATION: Mrs. Ragini Brito was admitted to the hospital because of abnormal stress test and she has a history of prior inferior IL with a total occlusion of circumflex stented in 2016 as well as two areas of proximal and distal RCA on the same December 2016. Cardiac cath revealed that the stented segments and circumflex and RCA were patent but proximal LAD had a 70% to 80% eccentric calcified lesion with a long area of disease beyond the focal 70% as well. I performed stenting of the proximal LAD with 2 drug-eluting stents of 3.25 caliber 15 mm length and 8 mm length. Excellent angiographic result was achieved. Postprocedure course was uneventful. Labs are pending. EKG is unremarkable. Patient is asymptomatic. Vitals are stable. Blood pressure is about 128/70, pulse rate is 84 per minute. No JVD, S1-S2 heard normally. Lungs are clear. Abdomen and lower extremity exam unchanged, right groin is clean and dry with a good pulse. EKG revealed sinus mechanism, no acute changes. Labs are pending. The patient will be discharged today and she has an appointment to see me next Thursday. Discharge instructions regarding activity, diet and medications were given. She will continue the same home medications except atorvastatin will be increased to 80 mg daily and metoprolol tartrate 25 mg b.i.d. Discharge instructions were given and patient will be discharged. MMODL / IJN: [id number] /
[2020-05-26] MEDS ORDERED: CINACALCET 30 MG TAB PO SCH (09:00)
== END 2020-05-24 11:23 | disposition home or self-care (01) ==
LOC: CATHCVL 08:04 → 1SOBS 11:14 → CATHCVL 05-24 11:23
PROVIDERS: ATTEND Internal Medicine Interventional Cardiology
DX: I25.110 Atherosclerotic heart disease of native coronary artery with unstable angina pectoris (principal); I25.84 Coronary atherosclerosis due to calcified coronary lesion; I10 Essential (primary) hypertension; I25.2 Old myocardial infarction; R94.39 Abnormal result of other cardiovascular function study; E78.2 Mixed hyperlipidemia; Z95.5 Presence of coronary angioplasty implant and graft; E78.00 Pure hypercholesterolemia, unspecified; Z82.49 Family history of ischemic heart disease and other diseases of the circulatory system; Z72.0 Tobacco use; Z79.02 Long term (current) use of antithrombotics/antiplatelets; Z79.890 Hormone replacement therapy; Z79.899 Other long term (current) drug therapy; Z88.1 Allergy status to other antibiotic agents; Z88.0 Allergy status to penicillin
CPT/HCPCS: 93458; 80048; 85025; C9600; C1769 ×4; C1760; C1887; C1725; C1894; C1874; J2250; J2001; J0583; Q9967

== ENCOUNTER → 2020-10-02 | Outpatient (CLI) | payer MEDICARE, BC ==
[2020-10-02 15:50] LABS: Appearance,Urine Clear (Clear); Bacteria,Urine Rare /hpf; Bilirubin,Urine Negative (Negative); Blood,Urine Negative (Negative); Cellular Casts,Urine 1 /lpf (0); Color,Urine Yellow; Glucose,Urine (UA) Negative (Negative); Hyaline Casts,Urine 5 /lpf (0-2); Ketones,Urine Negative (Negative); Leukocyte Esterase,Urine Trace (Negative); Mucus,Urine Occasional /hpf; Nitrite,Urine Negative (Negative); Protein,Urine Trace (Negative); RBC,Urine 2 /hpf (0-5); Specific Gravity,Urine 1.033 (1.001-1.035); Squamous Epithelial Cell,Urine 2 /hpf (0-4); Urobilinogen,Urine <2.0 mg/dL (<2.0); WBC,Urine 7 /hpf (0-5)
[2020-10-03 20:10] LABS: Ferritin 77.4 ng/mL (10.0-291.0)
[2020-10-03 21:28] LABS: % Iron Saturation 19.76 (12.00-45.00); African American GFR (CKD) 66.6 (60.0-200.0); Anion Gap 14.2 mmol/L (4.00-12.00); Calcium 11.7 mg/dL (8.7-10.3); Carbon Dioxide 20.8 mmol/L (21.6-31.8); Non-African American GFR(CKD) 57.4 (60.0-200.0); Potassium 5.1 mmol/L (3.5-5.5)
== END | disposition home or self-care (01) ==
LOC: LABWHC1 14:48
PROVIDERS: ATTEND Internal Medicine Nephrology
DX: E83.52 Hypercalcemia (principal); E55.9 Vitamin D deficiency, unspecified; N39.0 Urinary tract infection, site not specified; N25.81 Secondary hyperparathyroidism of renal origin
CPT/HCPCS: 36415; 80048; 81001; 82306; 82728; 83540; 83550; 83970

== ENCOUNTER → 2020-10-19 | Outpatient (CLI) | payer MEDICARE, BC ==
--- NOTE | 2020-10-19 17:37 | NM ---
EXAMINATION TYPE: NM parathyroid w/spect DATE OF EXAM: 10/19/2020 COMPARISON: Thyroid ultrasound 11/15/2019 HISTORY: Hypercalcemia TECHNIQUE: Following administration of 24.8 mCi Tc99m Sestamibi. Anterior projection images of the neck and ches t were obtained 10 minutes and 3 hours post injection. SPECT images of the neck and chest were obtai corazon and reconstructed in three axes. FINDINGS: Thyroid tracer washout: Delayed images demonstrate incomplete tracer washout from the thyroid. Parathyroid uptake: On two-hour delayed images there is a focal abnormal persistent uptake in the reg ion of the right parathyroid glands suggestive of parathyroid adenoma. Normal uptake: There is physiological tracer uptake in the salivary glands and thyroid gland. IMPRESSION: Focal uptake inferior to the right thyroid suggestive of parathyroid adenoma.
== END | disposition home or self-care (01) ==
LOC: RADNMMAIN 11:16
PROVIDERS: ATTEND Internal Medicine Nephrology
DX: E83.52 Hypercalcemia (principal)
CPT/HCPCS: 78071; A9500

== ENCOUNTER → 2020-12-10 | Outpatient (CLI) | payer MEDICARE, BC ==
[2020-12-10 12:33] LABS: Appearance,Urine Clear (Clear); Bilirubin,Urine Negative (Negative); Blood,Urine Negative (Negative); Color,Urine Yellow; Glucose,Urine (UA) Negative (Negative); Ketones,Urine Negative (Negative); Leukocyte Esterase,Urine Negative (Negative); Nitrite,Urine Negative (Negative); Protein,Urine Negative (Negative); Specific Gravity,Urine 1.022 (1.001-1.035); Urobilinogen,Urine <2.0 mg/dL (<2.0)
[2020-12-10 12:46] LABS: Creatinine,Urine Random 107.5 mg/dL; Protein/Creatinine Ratio,Urine 0.065
[2020-12-10 18:38] LABS: Basophils # (A) 0.03 X 10*3/uL (0.00-0.10); Basophils % (A) 0.6 %; Eosinophils # (A) 0.11 X 10*3/uL (0.04-0.35); Eosinophils % (A) 2.2 %; HCT 45.4 % (37.2-46.3); HGB 14.1 g/dL (12.0-15.0); Lymphocytes # (A) 1.16 X 10*3/uL (0.90-5.00); Lymphocytes % (A) 23.7 %; MCH 28.4 pg (27.0-32.0); MCHC 31.1 g/dL (32.0-37.0); MCV 91.5 fL (80.0-97.0); Mean Platelet Volume 10.4 fL (9.5-12.2); Monocytes # (A) 0.59 X 10*3/uL (0.20-1.00); Monocytes % (A) 12.1 %; Neutrophils # (A) 2.98 X 10*3/uL (1.80-7.70); Platelet Count 252 X 10*3/uL (140-440); RBC 4.96 X 10*6/uL (4.10-5.20); RDW 12.9 % (11.5-14.5); WBC 4.89 X 10*3/uL (4.50-10.00)
[2020-12-10 19:55] LABS: Ferritin 93.4 ng/mL (10.0-291.0)
[2020-12-10 20:22] LABS: % Iron Saturation 15.73 (12.00-45.00); African American GFR (CKD) 87.2 (60.0-200.0); Albumin 4.5 g/dL (3.80-4.90); BUN/Creat Ratio 21.25 Ratio (12.00-20.00); Calcium 11.1 mg/dL (8.7-10.3); Magnesium 1.9 mg/dL (1.5-2.4); Non-African American GFR(CKD) 75.2 (60.0-200.0); Potassium 5.1 mmol/L (3.5-5.5); Uric Acid 6.1 mg/dL (2.9-7.7)
== END | disposition home or self-care (01) ==
LOC: LABWHC1 11:28
PROVIDERS: ATTEND Internal Medicine Nephrology
DX: N39.0 Urinary tract infection, site not specified (principal); N25.81 Secondary hyperparathyroidism of renal origin; E55.9 Vitamin D deficiency, unspecified; D64.9 Anemia, unspecified; M10.9 Gout, unspecified
CPT/HCPCS: 36415; 80048; 81003; 82040; 82306; 82570; 82728; 83540; 83550; 83735; 83970; 84100; 84156; 84550; 85025

== ENCOUNTER → 2021-01-07 | Outpatient (CLI) | payer MEDICARE, BC ==
[2021-01-07 15:37] LABS: African American GFR (CKD) >90 (>60 ml/min/1.73 sqM); Blood Urea Nitrogen 20 mg/dL (7-17); Non-African American GFR(CKD) 89 (>60 ml/min/1.73 sqM)
== END | disposition home or self-care (01) ==
LOC: LABWHC1 15:06
PROVIDERS: ATTEND Surgery
DX: Z01.89 Encounter for other specified special examinations (principal)
CPT/HCPCS: 36415; 82565; 84520

== ENCOUNTER → 2021-02-11 | Outpatient (CLI) | payer MEDICARE, BC ==
[2021-02-11 21:28] LABS: African American GFR (CKD) 87.2 (60.0-200.0); Albumin 4.5 g/dL (3.80-4.90); Albumin/Globulin Ratio 2.05 (1.60-3.17); Anion Gap 11.4 mmol/L (4.00-12.00); BUN/Creat Ratio 17.5 Ratio (12.00-20.00); Carbon Dioxide 25.6 mmol/L (21.6-31.8); Globulin 2.2 g/dL (1.6-3.3); Non-African American GFR(CKD) 75.2 (60.0-200.0); Potassium 4.6 mmol/L (3.5-5.5); Total Bilirubin 0.3 mg/dL (0.3-1.2); Total Protein 6.7 g/dL (6.2-8.2)
== END | disposition home or self-care (01) ==
LOC: LABWHC1 11:12
PROVIDERS: ATTEND Internal Medicine Endocrinology, Diabetes & Metabolism
DX: E21.0 Primary hyperparathyroidism (principal)
CPT/HCPCS: 36415; 80053; 83970

== ENCOUNTER → 2021-03-18 | Outpatient (CLI) | payer MEDICARE, BC ==
[2021-03-19 08:07] LABS: ALT 27 U/L (8-44); AST 16 U/L (13-35); Albumin/Globulin Ratio 1.56 (1.60-3.17); Alkaline Phosphatase 111 U/L (41-126); BUN/Creat Ratio 19.33 Ratio (12.00-20.00); Blood Urea Nitrogen 13.8 mg/dL (9.0-27.0); Calcium 9.6 mg/dL (8.7-10.3); Carbon Dioxide 23.9 mmol/L (21.6-31.8); Chloride 108 mmol/L (96-109); Globulin 2.6 g/dL (1.6-3.3); Glucose 83 mg/dL (70-110); Non-African American GFR(CKD) 86.3 (60.0-200.0); Potassium 4.1 mmol/L (3.5-5.5); Sodium 144 mmol/L (135-145); Total Bilirubin <0.20 mg/dL (0.30-1.20); Total Protein 6.6 g/dL (6.2-8.2)
== END | disposition home or self-care (01) ==
LOC: LABWHC1 11:19
PROVIDERS: ATTEND Internal Medicine Endocrinology, Diabetes & Metabolism
DX: E21.0 Primary hyperparathyroidism (principal)
CPT/HCPCS: 36415; 80053; 83970

== ENCOUNTER → 2021-04-16 | Outpatient (CLI) | payer MEDICARE, BC ==
[2021-04-16 12:13] LABS: Appearance,Urine Clear (Clear); Bacteria,Urine Rare /hpf; Bilirubin,Urine Negative (Negative); Blood,Urine Negative (Negative); Color,Urine Yellow; Glucose,Urine (UA) Negative (Negative); Ketones,Urine Negative (Negative); Leukocyte Esterase,Urine Moderate (Negative); Mucus,Urine Occasional /hpf; Nitrite,Urine Negative (Negative); Protein,Urine Negative (Negative); RBC,Urine 2 /hpf (0-5); Squamous Epithelial Cell,Urine 4 /hpf (0-4); Urobilinogen,Urine <2.0 mg/dL (<2.0); WBC,Urine 9 /hpf (0-5)
[2021-04-16 15:25] LABS: Basophils # (A) 0.03 X 10*3/uL (0.00-0.10); Basophils % (A) 0.4 %; Eosinophils # (A) 0.12 X 10*3/uL (0.04-0.35); Eosinophils % (A) 1.7 %; HCT 43.9 % (37.2-46.3); HGB 13.5 g/dL (12.0-15.0); Lymphocytes # (A) 1.25 X 10*3/uL (0.90-5.00); Lymphocytes % (A) 18.1 %; MCH 27.5 pg (27.0-32.0); MCHC 30.8 g/dL (32.0-37.0); MCV 89.4 fL (80.0-97.0); Mean Platelet Volume 10.7 fL (9.5-12.2); Monocytes # (A) 0.48 X 10*3/uL (0.20-1.00); Monocytes % (A) 6.9 %; Neutrophils # (A) 5.01 X 10*3/uL (1.80-7.70); Neutrophils % (A) 72.6 %; Platelet Count 266 X 10*3/uL (140-440); RBC 4.91 X 10*6/uL (4.10-5.20); RDW 13.2 % (11.5-14.5); WBC 6.91 X 10*3/uL (4.50-10.00)
[2021-04-16 20:00] LABS: African American GFR (CKD) 90.5 (60.0-200.0); Anion Gap 12.9 mmol/L (4.00-12.00); BUN/Creat Ratio 18.17 Ratio (12.00-20.00); Blood Urea Nitrogen 14.1 mg/dL (9.0-27.0); Calcium 9.9 mg/dL (8.7-10.3); Carbon Dioxide 22.7 mmol/L (21.6-31.8); Magnesium 2.2 mg/dL (1.5-2.4); Non-African American GFR(CKD) 78.1 (60.0-200.0); Phosphorus 3.5 mg/dL (2.4-5.1); Potassium 4.1 mmol/L (3.5-5.5)
== END | disposition home or self-care (01) ==
LOC: LABWHC1 09:00
PROVIDERS: ATTEND Internal Medicine Nephrology
DX: E83.52 Hypercalcemia (principal); N25.81 Secondary hyperparathyroidism of renal origin; N39.0 Urinary tract infection, site not specified; D64.9 Anemia, unspecified
CPT/HCPCS: 36415; 80048; 81001; 82306; 83735; 83970; 84100; 85025; 87086

== ENCOUNTER → 2021-08-23 | Outpatient (CLI) | payer MEDICARE, BC ==
--- NOTE | 2021-08-23 09:25 | US ---
EXAMINATION TYPE: US carotid duplex BILAT DATE OF EXAM: 08/23/2021 COMPARISON: NONE CLINICAL HISTORY: I25.10 CAD I70.90 ATHEROSCLEROSIS. CAD, atherosclerosis EXAM MEASUREMENTS: RIGHT: Peak Systolic Velocity (PSV) cm/sec ----- Right CCA: 77.6 ----- Right ICA: 87.5 ----- Right ECA: 125.0 ICA/CCA ratio: 1.1 RIGHT: End Diastole cm/sec ----- Right CCA: 19.3 ----- Right ICA: 18.9 ----- Right ECA: 18.9 LEFT: Peak Systolic Velocity (PSV) cm/sec ----- Left CCA: 89.7 ----- Left ICA: 73.8 ----- Left ECA: 133.4 ICA/CCA ratio: 0.8 LEFT: End Diastole cm/sec ----- Left CCA: 23.7 ----- Left ICA: 33.7 ----- Left ECA: 13.9 VERTEBRALS (direction of flow): Right Vertebral: Antegrade Left Vertebral: Antegrade Rhythm: Normal No significant stenosis seen IMPRESSION: No hemodynamically significant stenosis identified. Criteria for Assigning % of Stenosis / Diameter reduction (Estimation based on the indirect measurements of the internal carotid artery velocities (ICA PSV). 1. Normal (no stenosis)=ICA PSV < 125 cm/s: ratio < 2.0: ICA EDV<40 cm/s. 2. Less than 50% stenosis=ICA PSV < 125 cm/s: ratio < 2.0: ICA EDV<40 cm/s. 3. 50 to 69% stenosis=ICA PSV of 125 to 230 cm/s: ration 2.0 ? 4.0: ICA EDV 40-100 cm/s. 4. Greater than 70% stenosis to near occlusion= ICA PSV > 230 cm/s: ratio > 4.0: ICA EDV > 100 cm/s. 5. Near occlusion= ICA PSV velocities may be low or undetectable: variable ratio and ICA EDV. 6. Total occlusion=unable to detect flow.
== END | disposition home or self-care (01) ==
LOC: RADUSWWP 08:56
PROVIDERS: ATTEND Family Medicine
DX: I25.10 Atherosclerotic heart disease of native coronary artery without angina pectoris (principal); I70.90 Unspecified atherosclerosis
CPT/HCPCS: 93880

== ENCOUNTER → 2021-09-05 | Outpatient (CLI) | payer MEDICARE, BC ==
--- NOTE | 2021-09-05 13:57 | MM ---
Reason for exam: additional evaluation requested from prior study. Last mammogram was performed 1 year and 8 months ago. History: Patient is postmenopausal. Benign core biopsy of the left breast, 1989. Took hormonal contraceptives for 14 years. Physical Findings: A clinical breast exam by your physician is recommended on an annual basis and results should be correlated with mammographic findings. MG 3D Diag Mammo W/Cad BALTAZAR Bilateral CC and MLO view(s) were taken. Prior study comparison: January 04, 2020, bilateral MG 3d screening mammo w/cad. June 03, 2016, mammogram, performed at [facility]. There are scattered fibroglandular densities. No significant changes when compared with prior studies. ASSESSMENT: Benign, BI-RAD 2 RECOMMENDATION: Routine screening mammogram of both breasts in 1 year. Manage on a clinical basis with regard to right nipple.
== END | disposition home or self-care (01) ==
LOC: RADMAMWWP 12:59
PROVIDERS: ATTEND Family Medicine
DX: N60.01 Solitary cyst of right breast (principal); Z78.0 Asymptomatic menopausal state
CPT/HCPCS: 77066; G0279; 77062

== ENCOUNTER → 2021-09-11 | Outpatient (CLI) | payer MEDICARE, BC ==
[2021-09-12 01:04] LABS: African American GFR (CKD) 73.6 (60.0-200.0); Albumin/Globulin Ratio 1.25 (1.60-3.17); Anion Gap 16.2 mmol/L (10.00-18.00); BUN/Creat Ratio 16.17 Ratio (12.00-20.00); Blood Urea Nitrogen 14.8 mg/dL (9.0-27.0); Calcium 9.6 mg/dL (8.7-10.3); Carbon Dioxide 20.3 mmol/L (20.0-27.5); Globulin 3.2 g/dL (1.6-3.3); Non-African American GFR(CKD) 63.5 (60.0-200.0); Potassium 4.3 mmol/L (3.5-5.5); Total Bilirubin 0.3 mg/dL (0.30-1.20); Total Protein 7.1 g/dL (6.2-8.2)
== END | disposition home or self-care (01) ==
LOC: LABWHC1 13:55
PROVIDERS: ATTEND Internal Medicine Endocrinology, Diabetes & Metabolism
DX: E21.0 Primary hyperparathyroidism (principal)
CPT/HCPCS: 36415; 80053; 82306; 83970; 84443

== ENCOUNTER → 2022-03-17 | Outpatient (CLI) | payer MEDICARE, BC ==
[2022-03-17 17:27] LABS: African American GFR (CKD) 82.6 (60.0-200.0); Albumin/Globulin Ratio 1.33 (1.60-3.17); Anion Gap 10.4 mmol/L (10.00-18.00); BUN/Creat Ratio 18.27 Ratio (12.00-20.00); Blood Urea Nitrogen 15.2 mg/dL (9.0-27.0); Calcium 9.4 mg/dL (8.7-10.3); Carbon Dioxide 24.9 mmol/L (20.0-27.5); Non-African American GFR(CKD) 71.2 (60.0-200.0); Potassium 4.4 mmol/L (3.5-5.5); Total Bilirubin 0.3 mg/dL (0.30-1.20)
== END | disposition home or self-care (01) ==
LOC: LABWHC1 10:27
PROVIDERS: ATTEND Internal Medicine Endocrinology, Diabetes & Metabolism
DX: E21.0 Primary hyperparathyroidism (principal); R53.83 Other fatigue
CPT/HCPCS: 36415; 80053; 82306; 83970; 84443

== ENCOUNTER → 2022-05-20 | Outpatient (CLI) | payer MEDICARE, BC ==
[2022-05-20 20:47] LABS: Gliadin AB IgA, Deaminated NEGATIVE (NEGATIVE); Gliadin AB IgA, Unit <0.2 U/mL; Gliadin AB IgG, Deaminated NEGATIVE (NEGATIVE); Gliadin AB IgG, Unit <0.4 U/mL
== END | disposition home or self-care (01) ==
LOC: LABWHC1 13:38
PROVIDERS: ATTEND Internal Medicine Gastroenterology
DX: K52.9 Noninfective gastroenteritis and colitis, unspecified (principal)
CPT/HCPCS: 36415; 83516

== ENCOUNTER 2022-06-04 10:11 | Day surgery (SDC) | payer MEDICARE, BC ==
[2022-05-30 16:20] VITALS: BMI 38.6
[~2022-06-04 10:11] MED LIST changes: -ALPRAZolam 0.25 MG TAB PO PRN; -ALPRAZolam 0.5 MG TAB PO PRN; -ASPIRIN 325 MG TAB PO ONE; -ATORVASTATIN 80 MG TAB PO ONE; +LACTATED RINGERS 1,000 ML IV SCH; +LIDOCAINE 1% (10MG/ML) FOR IV START INTRADERMA PRN; -NITROGLYCERIN SL TABS 0.4 MG TAB SUBLINGUAL PRN; -SODIUM CHLORIDE 0.9% 1,000 ML in EMPTY BAG 1 BAG IV ONE
[2022-06-04 11:00] VITALS: TEMP 97
--- NOTE | 2022-06-04 11:46 | P.PCN ---
Date of Procedure: 06/04/22 Procedure(s) Performed: BRIEF HISTORY: Patient is a 71-year-old pleasant white female scheduled for an elective colonoscopy as a part of value should of chronic diarrhea for the last 5 years duration. She is been having 5-6 loose watery bowel movements daily. No blood or mucus in the stool. She also has prior history of colon polyps. PROCEDURE PERFORMED: Colonoscopy biopsy and snare polypectomy. PREOPERATIVE DIAGNOSIS: History of Colon polyps/chronic diarrhea. IV sedation per Anesthesia. PROCEDURE: After informed consent was obtained, the patient, was brought into the endoscopy unit. IV sedation was administered by Anesthesia under continuous monitoring. Digital rectal examination was normal. Initially the Olympus CF-160 flexible video colonoscope was then inserted in the rectum, gradually advanced into the cecum without any difficulty. Careful examination was performed as the scope was gradually being withdrawn. Ileocecal valve and the appendiceal orifice were visualized and appeared normal. Prep was excellent. Mucosa of the cecum, appeared normal. In the ascending colon there was a 3 mm and 1 m polyp removed by snare polypectomy. Rest of the ascending colon, transverse colon, descending colon, sigmoid colon, and rectum appeared normal. Random biopsies were done from ascending and descending colon to rule out microscopic/collagenous colitis. Retroflexion was performed in the rectum and no lesions were seen. The patient tolerated the procedure well. IMPRESSION: 1 cm and 3 mm ascending colon polyp status post polypectomy and biopsy Rest of the colon appeared normal RECOMMENDATIONS: Findings of this examination were discussed with the patient as well as a family. She was advised to follow with the biopsy results. If the biopsy is adenoma she can have a repeat colonoscopy in 3 years..
[2022-06-04 12:04] VITALS: BP 115/74; PULSE 61; RESP 16
[2022-06-04] MEDS ORDERED: PROPOFOL 10 MG/ML 20 ML VIAL IV ONE (12:21)
== END 2022-06-04 12:27 | disposition home or self-care (01) ==
LOC: ORWHC2ENDO 10:11
PROVIDERS: ATTEND Internal Medicine Gastroenterology
DX: D12.2 Benign neoplasm of ascending colon (principal); K52.9 Noninfective gastroenteritis and colitis, unspecified; I25.10 Atherosclerotic heart disease of native coronary artery without angina pectoris; I10 Essential (primary) hypertension; E78.5 Hyperlipidemia, unspecified; E07.9 Disorder of thyroid, unspecified; M19.90 Unspecified osteoarthritis, unspecified site; Z88.0 Allergy status to penicillin; Z86.010 Personal history of colon polyps; Z79.82 Long term (current) use of aspirin; Z79.899 Other long term (current) drug therapy
CPT/HCPCS: 45380; 45385; J2704; 88305

== ENCOUNTER → 2022-07-16 | Outpatient (CLI) | payer MEDICARE, BC ==
[2022-07-16 18:33] LABS: Basophils # (A) 0.03 X 10*3/uL (0.00-0.10); Basophils % (A) 0.4 %; Eosinophils # (A) 0.29 X 10*3/uL (0.04-0.35); Eosinophils % (A) 4.3 %; HCT 45.3 % (37.2-46.3); HGB 13.6 g/dL (12.0-15.0); Immature Grans, Automated 0.3 %; Lymphocytes # (A) 1.03 X 10*3/uL (0.90-5.00); Lymphocytes % (A) 15.4 %; MCH 26.4 pg (27.0-32.0); Mean Platelet Volume 10.5 fL (9.5-12.2); Monocytes # (A) 0.48 X 10*3/uL (0.20-1.00); Monocytes % (A) 7.2 %; NRBC Per 100 WBC 0 /100 WBCS (0.0-0.0); Neutrophils # (A) 4.86 X 10*3/uL (1.80-7.70); Neutrophils % (A) 72.4 %; Platelet Count 265 X 10*3/uL (140-440); RBC 5.15 X 10*6/uL (4.10-5.20); RDW 14.1 % (11.5-14.5); WBC 6.71 X 10*3/uL (4.50-10.00)
[2022-07-16 18:47] LABS: % Iron Saturation 19.11 (12.00-45.00); African American GFR (CKD) 86.6 (60.0-200.0); BUN/Creat Ratio 14.5 Ratio (12.00-20.00); Blood Urea Nitrogen 11.6 mg/dL (9.0-27.0); Calcium 9.5 mg/dL (8.7-10.3); Magnesium 1.9 mg/dL (1.5-2.4); Non-African American GFR(CKD) 74.7 (60.0-200.0); Phosphorus 3.5 mg/dL (2.4-5.1); Potassium 4.4 mmol/L (3.5-5.5); Uric Acid 6.3 mg/dL (2.9-7.7)
[2022-07-16 19:36] LABS: Albumin 4.1 g/dL (3.8-4.9)
[2022-07-16 19:55] LABS: Appearance,Urine Cloudy (Clear); Bacteria,Urine None Seen /HPF (None Seen); Bilirubin,Urine Small (Negative); Blood,Urine Negative (Negative); Calcium Oxalate Crystals,Urine Present /LPF (None Seen); Color,Urine Dark Yellow (Yellow); Ketones,Urine 15 mg/dL (Negative); Nitrite,Urine Negative (Negative); Specific Gravity,Urine >1.035 (1.001-1.030)
== END | disposition home or self-care (01) ==
LOC: LABWHC1 11:21
PROVIDERS: ATTEND Nurse Practitioner Family
DX: E83.52 Hypercalcemia (principal); E03.9 Hypothyroidism, unspecified; D64.9 Anemia, unspecified; M10.9 Gout, unspecified; N39.0 Urinary tract infection, site not specified
CPT/HCPCS: 36415; 80048; 81001; 82040; 82043; 82306; 82570; 82728; 83540; 83550; 83735; 83970; 84100; 84550; 85025

== ENCOUNTER → 2022-09-08 | Outpatient (CLI) | payer MEDICARE, BC ==
[2022-09-08 23:35] LABS: ALT 29 U/L (8-44); AST 21 U/L (13-35); African American GFR (CKD) 81.4 (60.0-200.0); Albumin/Globulin Ratio 1.57 (1.60-3.17); Alkaline Phosphatase 104 U/L (41-126); Blood Urea Nitrogen 15.4 mg/dL (9.0-27.0); Calcium 9.6 mg/dL (8.7-10.3); Carbon Dioxide 27.3 mmol/L (20.0-27.5); Chloride 107 mmol/L (96-109); Globulin 2.5 g/dL (1.6-3.3); Glucose 101 mg/dL (70-110); Non-African American GFR(CKD) 70.2 (60.0-200.0); Potassium 4.8 mmol/L (3.5-5.5); Sodium 144 mmol/L (135-145); Total Bilirubin <0.15 mg/dL (0.30-1.20); Total Protein 6.5 g/dL (6.2-8.2)
== END | disposition home or self-care (01) ==
LOC: LABWHC1 13:55
PROVIDERS: ATTEND Internal Medicine Endocrinology, Diabetes & Metabolism
DX: E21.0 Primary hyperparathyroidism (principal); R53.83 Other fatigue
CPT/HCPCS: 36415; 80053; 82306; 83970; 84443

== ENCOUNTER → 2022-11-25 | Outpatient (CLI) | payer MEDICARE, BC ==
[2022-11-25 15:57] LABS: Basophils # (A) 0.04 X 10*3/uL (0.00-0.10); Basophils % (A) 0.6 %; Eosinophils % (A) 2.8 %; HCT 44.8 % (37.2-46.3); HGB 13.7 d/dL (12.0-15.0); Lymphocytes # (A) 1.24 X 10*3/uL (0.90-5.00); Lymphocytes % (A) 17.6 %; MCH 26.5 pg (27.0-32.0); MCHC 30.6 d/dL (32.0-37.0); MCV 86.7 FL (80.0-97.0); Mean Platelet Volume 10.1 FL (9.5-12.2); Monocytes # (A) 0.43 X 10*3/uL (0.20-1.00); Monocytes % (A) 6.1 %; NRBC Per 100 WBC 0 X 10*3/uL (0.00-0.01); Neutrophils # (A) 5.13 X 10*3/uL (1.80-7.70); Neutrophils % (A) 72.6 %; Platelet Count 259 X 10*3/uL (140-440); RBC 5.17 X 10*6/uL (4.10-5.20); RDW 14.1 % (11.5-14.5); WBC 7.06 X 10*3/uL (4.50-10.00)
[2022-11-25 16:05] LABS: ALT 28 U/L (8-44); AST 19 U/L (13-35); Albumin 4.1 d/dL (3.8-4.9); Albumin/Globulin Ratio 1.64 Ratio (1.60-3.17); Alkaline Phosphatase 105 U/L (41-126); BUN/Creat Ratio 19.38 Ratio (12.00-20.00); Blood Urea Nitrogen 15.5 mg/dL (9.0-27.0); Calcium 9.6 mg/dL (8.7-10.3); Carbon Dioxide 26.7 mmol/L (21.6-31.8); Chloride 109 mmol/L (96-109); Chol/HDL Ratio 2.62 Ratio; Globulin 2.5 d/dL (1.6-3.3); Glucose 100 mg/dL (70-110); LDL Cholesterol,Calculated 72.1 mg/dL (0.0-131.0); Potassium 4.5 mmol/L (3.5-5.5); Sodium 147 mmol/L (135-145); Total Bilirubin 0.4 mg/dL (0.3-1.2); Total Protein 6.6 d/dL (6.2-8.2)
== END | disposition home or self-care (01) ==
LOC: LABWHC1 08:34
PROVIDERS: ATTEND Family Medicine
DX: I10 Essential (primary) hypertension (principal); E03.9 Hypothyroidism, unspecified; E78.00 Pure hypercholesterolemia, unspecified; E55.9 Vitamin D deficiency, unspecified
CPT/HCPCS: 36415; 80053; 80061; 82306; 84443; 85025

== ENCOUNTER → 2022-12-17 | Outpatient (CLI) | payer MEDICARE, BC ==
--- NOTE | 2022-12-18 08:24 | MM ---
Reason for Exam: Screening (asymptomatic). Last mammogram was performed 1 year(s) and 4 month(s) ago. Patient History: Menarche at age 12. First Full-Term at age 27. Hysterectomy at age 40. Postmenopausal. Patient has history of breast feeding. Patient used Hormonal Contraceptives for 14 years. 1990, Benign Core Biopsy on the left side. Risk Values: Marita 5 year model risk: 2.5%. NCI Lifetime model risk: 6.9%. Prior Study Comparison: 04/03/2015 Screening Mammogram, [facility]. 06/03/2016 Screening Mammogram, [facility]. 01/04/2020 Bilateral Screening Mammogram, [facility]. 09/05/2021 Bilateral Diagnostic Mammogram, [facility]. Tissue Density: There are scattered fibroglandular densities. Findings: Analyzed By CAD. There is no suspicious group of microcalcifications or new suspicious mass in either breast. Overall Assessment: Negative, BI-RAD 1 Management: Screening Mammogram of both breasts in [address] [facility] will attempt to contact patient to return for supplemental views and ultrasound if indicated. Patient should continue monthly self-breast exams. A clinical breast exam by your physician is recommended on an annual basis. This exam should not preclude additional follow-up of suspicious palpable abnormalities. Note on Marita scores and lifetime risk: 1. A Marita score greater than 3% is considered moderate risk. If this is the case, consider specialist referral to assess eligibility for a risk reducing agent. 2. If overall lifetime risk for the development of breast cancer is 20% or higher, the patient may qualify for future screening with alternating mammogram and breast MRI. Electronically signed and approved by: Arie Sanchez DO
== END | disposition home or self-care (01) ==
LOC: RADMAMWWP 09:39
PROVIDERS: ATTEND Family Medicine
DX: Z12.31 Encounter for screening mammogram for malignant neoplasm of breast (principal); Z78.0 Asymptomatic menopausal state
CPT/HCPCS: 77063; 77067

== ENCOUNTER → 2023-10-02 | Outpatient (CLI) | payer MEDICARE, BC ==
[2023-10-02 17:01] LABS: ALT 23 U/L (8-44); AST 21 U/L (13-35); Albumin 4.3 g/dL (3.8-4.9); Albumin/Globulin Ratio 1.59 Ratio (1.60-3.17); Alkaline Phosphatase 84 U/L (41-126); BUN/Creat Ratio 18.89 Ratio (12.00-20.00); Calcium 10.2 mg/dL (8.7-10.3); Carbon Dioxide 24.7 mmol/L (21.6-31.8); Chloride 106 mmol/L (96-109); Globulin 2.7 g/dL (1.6-3.3); Glucose 135 mg/dL (70-110); Potassium 4.4 mmol/L (3.5-5.5); Sodium 146 mmol/L (135-145); Total Bilirubin 0.4 mg/dL (0.3-1.2)
== END | disposition home or self-care (01) ==
LOC: LABWHC1 08:53
PROVIDERS: ATTEND Internal Medicine Endocrinology, Diabetes & Metabolism
DX: E21.0 Primary hyperparathyroidism (principal); E03.8 Other specified hypothyroidism
CPT/HCPCS: 36415; 80053; 82306; 83970; 84443

== ENCOUNTER → 2024-01-05 | Outpatient (CLI) | payer MEDICARE, BC ==
[2024-01-05 16:20] LABS: ALT 31 U/L (8-44); AST 24 U/L (13-35); Albumin 4.1 g/dL (3.8-4.9); Albumin/Globulin Ratio 1.58 Ratio (1.60-3.17); Alkaline Phosphatase 93 U/L (41-126); BUN/Creat Ratio 16.75 Ratio (12.00-20.00); Blood Urea Nitrogen 13.4 mg/dL (9.0-27.0); Calcium 9.3 mg/dL (8.7-10.3); Carbon Dioxide 24.2 mmol/L (21.6-31.8); Chloride 105 mmol/L (96-109); Globulin 2.6 g/dL (1.6-3.3); Glucose 106 mg/dL (70-110); Potassium 4.7 mmol/L (3.5-5.5); Sodium 143 mmol/L (135-145); Total Bilirubin 0.3 mg/dL (0.3-1.2); Total Protein 6.7 g/dL (6.2-8.2)
== END | disposition home or self-care (01) ==
LOC: LABWHC1 08:30
PROVIDERS: ATTEND Internal Medicine Endocrinology, Diabetes & Metabolism
DX: E66.01 Morbid (severe) obesity due to excess calories (principal); E21.0 Primary hyperparathyroidism; E03.8 Other specified hypothyroidism; Z68.35 Body mass index [BMI] 35.0-35.9, adult; R73.9 Hyperglycemia, unspecified
CPT/HCPCS: 36415; 80053; 82306; 83036; 83970; 84443

== ENCOUNTER → 2024-04-14 | Outpatient (CLI) | payer MEDICARE, BC ==
[2024-04-14 16:10] LABS: ALT 20 U/L (8-44); AST 17 U/L (13-35); Albumin 3.9 g/dL (3.8-4.9); Albumin/Globulin Ratio 1.44 Ratio (1.60-3.17); Alkaline Phosphatase 85 U/L (41-126); BUN/Creat Ratio 16.33 Ratio (12.00-20.00); Blood Urea Nitrogen 14.7 mg/dL (9.0-27.0); Calcium 9.3 mg/dL (8.7-10.3); Carbon Dioxide 25.6 mmol/L (21.6-31.8); Chloride 108 mmol/L (96-109); Globulin 2.7 g/dL (1.6-3.3); Glucose 115 mg/dL (70-110); Potassium 4.3 mmol/L (3.5-5.5); Sodium 146 mmol/L (135-145); T4, Free (Free Thyroxine) 0.97 ng/dL (0.80-1.80); Total Bilirubin 0.4 mg/dL (0.3-1.2); Total Protein 6.6 g/dL (6.2-8.2)
== END | disposition home or self-care (01) ==
LOC: LABWHC1 07:39
PROVIDERS: ATTEND Internal Medicine Endocrinology, Diabetes & Metabolism
DX: E21.0 Primary hyperparathyroidism (principal); E66.01 Morbid (severe) obesity due to excess calories
CPT/HCPCS: 36415; 80053; 83036; 84439; 84443; 84480

== ENCOUNTER → 2024-07-15 | Outpatient (CLI) | payer MEDICARE, BC ==
[2024-07-15 12:23] LABS: ALT 24 U/L (8-44); AST 22 U/L (13-35); Albumin/Globulin Ratio 1.43 Ratio (1.60-3.17); Alkaline Phosphatase 91 U/L (41-126); BUN/Creat Ratio 22.38 Ratio (12.00-20.00); Blood Urea Nitrogen 17.9 mg/dL (9.0-27.0); Calcium 9.3 mg/dL (8.7-10.3); Carbon Dioxide 21.7 mmol/L (21.6-31.8); Chloride 109 mmol/L (96-109); Globulin 2.8 g/dL (1.6-3.3); Glucose 109 mg/dL (70-110); Potassium 4.4 mmol/L (3.5-5.5); Sodium 146 mmol/L (135-145); Total Bilirubin 0.4 mg/dL (0.3-1.2); Total Protein 6.8 g/dL (6.2-8.2)
== END | disposition home or self-care (01) ==
LOC: LABWHC1 07:54
PROVIDERS: ATTEND Internal Medicine Endocrinology, Diabetes & Metabolism
DX: E21.0 Primary hyperparathyroidism (principal); R73.03 Prediabetes
CPT/HCPCS: 36415; 80053; 83036; 83970; 84443

== ENCOUNTER → 2024-12-02 | Outpatient (CLI) | payer MEDICARE, BC ==
[2024-12-02 10:43] LABS: Blood Urea Nitrogen 17.6 mg/dL (9.0-27.0); Calcium 9.2 mg/dL (8.7-10.3); Chloride 107 mmol/L (96-109); Estradiol 21.1 pg/mL; Glucose 125 mg/dL (70-110); Potassium 4.1 mmol/L (3.5-5.5); Sodium 142 mmol/L (135-145); T4, Free (Free Thyroxine) 0.86 ng/dL (0.80-1.80)
[2024-12-02 11:19] LABS: Follicle Stimulating Hormone 92.3 mIU/mL
== END | disposition home or self-care (01) ==
LOC: LABWHC1 07:06
PROVIDERS: ATTEND Internal Medicine
DX: E03.9 Hypothyroidism, unspecified (principal); R23.2 Flushing
CPT/HCPCS: 36415; 80048; 82670; 83001; 83002; 83835; 84402; 84403; 84439; 84443; 86376